=== PATIENT | female | born 1970 | race Two or more races ===

== ENCOUNTER → 2021-05-19 08:30 | Outpatient (BNVA) | payer OTHER, SELFPAY | PROVIDERS: PCP Emergency Medicine; Visit Provider Anesthesiology | DX: M17.0 Bilateral primary osteoarthritis of knee (principal); M06.9 Rheumatoid arthritis, unspecified; G89.4 Chronic pain syndrome; Z79.891 Long term (current) use of opiate analgesic | CPT/HCPCS: 99202 ==

== ENCOUNTER 2021-07-27 06:37 | Outpatient (REF) | payer OTHER, SELFPAY ==
--- NOTE | ~2021-07-27 | FL_ITS ---
EXAMINATION: XR FLUOROSCOPY WITH IMAGES CLINICAL INFORMATION: M17.0 - Bilateral primary osteoarthritis of knee. Pain. COMPARISON: None. TECHNIQUE: Fluoroscopy performed by Dr. Richar Carrillo. Fluoroscopy time: 0.3 minutes DAP: 5.32 Gycm2 Images: 3 FINDINGS: There is a needle adjacent to medial aspect distal femur mid depth. There is a second needle lateral side shorter depth, adjacent to superior medial patellofemoral joint. A third needle is seen adjacent to medial side proximal tibia mid depth. There is tricompartment osteoarthropathy with joint narrowing and osteophytes. There is spurring at quadriceps insertion patella and likely at origin patellar tendon. FL/FL guidance in treatment room IMPRESSION: Fluoroscopy for pain management procedures.
== END 2021-07-27 06:38 | disposition home or self-care (01) ==
LOC: HO.RADIR 06:37
PROVIDERS: Visit Provider Anesthesiology
DX: M06.9 Rheumatoid arthritis, unspecified (principal); G89.4 Chronic pain syndrome; M17.0 Bilateral primary osteoarthritis of knee; Z79.891 Long term (current) use of opiate analgesic
CPT/HCPCS: 64454

== ENCOUNTER → 2021-08-04 13:48 | Outpatient (BNVA) | payer OTHER, SELFPAY | PROVIDERS: PCP Emergency Medicine; Visit Provider Anesthesiology | DX: M06.9 Rheumatoid arthritis, unspecified (principal); M17.0 Bilateral primary osteoarthritis of knee; G89.4 Chronic pain syndrome; E66.01 Morbid (severe) obesity due to excess calories; Z79.891 Long term (current) use of opiate analgesic; Z68.44 Body mass index [BMI] 60.0-69.9, adult | CPT/HCPCS: 99212 ==

== ENCOUNTER 2021-10-29 12:51 | Emergency (ER) | payer OTHER, SELFPAY ==
--- NOTE | ~2021-10-29 | XR_ITS ---
EXAMINATION: XR CHEST CLINICAL INFORMATION: SOB. COMPARISON: None TECHNIQUE: Frontal view of the chest was obtained. FINDINGS: The lungs are well-expanded and clear of acute process. Heart size is borderline normal. Mild prominence of pulmonary vascularity seen but there is no congestion. No gross bony abnormality. XR/XR chest 1V IMPRESSION: No acute cardiopulmonary process seen.
--- NOTE | 2021-10-29 13:04 | ED_ITS ---
HPI - General Adult General Chief complaint: General Medical Stated complaint: has not slept in 7 days Time Seen by Provider: 10/29/21 13:03 Source: patient and EMS Mode of arrival: EMS History of Present Illness HPI narrative: 51-year-old female with past medical history of chronic pain, long-term opiate analgesia, osteoarthritis, rheumatoid arthritis, presenting to the ED from [facility] complaining insomnia x7 days and increased anxiety Reports nurse practitioner at facility has been slowly adjusting medications however is not working. Also reports acute on chronic LE edema since being at facility with mild SOB. Reports LE swelling has been worsening since being at [facility] due to decreased mobility. Is currently on Lasix, ambulates with walker to do ADLs. Denies CP, abdominal pain or nausea/vomiting Onset (ago): day(s) Related Data Home Medications Medication Instructions Recorded Confirmed acetaminophen 500 mg tablet 1,000 mg PO Q6H PRN 05/19/21 08/04/21 (Tylenol Extra Strength) celecoxib 100 mg capsule (Celebrex) 100 mg PO BID 05/19/21 08/04/21 duloxetine 30 mg capsule,delayed 30 mg PO DAILY 05/19/21 08/04/21 release (Cymbalta) gabapentin 100 mg capsule 100 mg PO TID 05/19/21 08/04/21 hydromorphone 2 mg tablet 2 mg PO Q6H 05/19/21 08/04/21 (Dilaudid) melatonin 3 mg capsule 3 mg PO BEDTIME PRN 05/19/21 08/04/21 ondansetron HCl 4 mg tablet 4 mg PO Q6H 05/19/21 08/04/21 (Zofran) trazodone 50 mg tablet 50 mg PO BEDTIME PRN 05/19/21 08/04/21 Previous Rx's Medication Instructions Recorded zolpidem 5 mg tablet (Ambien) 5 mg PO BEDTIME PRN #7 tab 10/29/21 Allergies Allergy/AdvReac Type Severity Reaction Status Date / Time acetaminophen [From Percocet] Allergy Itchy Verified 08/04/21 14:10 morphine Allergy itchy Verified 08/04/21 14:10 oxycodone [From Percocet] Allergy Itchy Verified 08/04/21 14:10 Review of Systems Review of Systems: Constitutional: No Fever, No Chills, + Fatigue, No Malaise ENT/Mouth: +No Ear Pain, No Nasal Congestion, No Hoarseness, No sore throat, No Rhinorrhea, No Swallowing Difficulty Eyes: No Eye Pain, No Swelling, No Redness, No Discharge Cardiovascular: No Chest Pain, + SOB, No Dyspnea on Exertion, No Orthopnea, + Edema, No Palpitations Respiratory: No Cough, No Dyspnea Gastrointestinal: No Nausea, No Vomiting, No Diarrhea, No Constipation, No Abdominal pain Genitourinary: No Dysuria, No Urinary Frequency, No Hematuria, No Flank Pain, No Urinary Flow Change Musculoskeletal: No joint pain, No Myalgias, No Joint Swelling Skin: No Skin Lesions, No rash Neuro: No Weakness, No Numbness, No Paresthesias, No Loss of Consciousness, No Dizziness, No Headache Psych: + Anxiety/Panic, No Depression, +insomnia Yes all other systems are reviewed and are negative [facility] Past Medical History Attestation statement: The following information was validated with the patient. Medical History Chronic pain syndrome care home (current) use of opiate analgesic Osteoarthritis of knees, bilateral Rheumatoid arthritis Social History Social History Advance Directives: No Advance Directives Information Provided: Yes Physical Exam Vital Signs: Vital Signs: Last Vital Signs Pulse 88 10/29/21 13:10 Resp 20 10/29/21 13:10 BP 133/61 10/29/21 13:10 Pulse Ox 100 10/29/21 13:10 BMI result Body Mass Index 74.9 Const: General: cooperative Nutritional Appearance: obese morbidly obese Orientation/consciousness: patient oriented x3 Limitations: no limitations HENMT: Head: Yes normal to inspection Ears: hearing grossly normal bilaterally General nose exam: Normal external nose present Face and sinus: Yes normal facial exam Eyes: General: appearance normal, both eyes and all related structures EOM: EOMs intact bilaterally Neck: Neck: Yes normal visual inspection and Yes no meningeal signs Resp: Effort & Inspection: normal respiratory effort Auscultation: clear to auscultation bilaterally, no rales, no rhonchi and no wheezes Cardio: Rate: regular rate Heart sounds: S1 normal heart sound present and S2 normal heart sound present GI: Inspection: Yes normal to inspection Palpation (GI): Soft to palpation, nontender, no guarding and not rigid Skin: Rashes: no rashes Wounds: no wounds Neuro: General: patient oriented x3 and no meningeal signs Extrem: Other: + bilateral LE pitting edema Course Course Course Narrative: XR chest 1V IMPRESSION: No acute cardiopulmonary process seen. -no leukocytosis. Labs otherwise unremarkable. BNP 21 > case discussed with Dr. Miranda, will initiate patient on trial of Ambien for insomnia. Patient reports the nurse practitioner at facility is in the process of increasing her Lasix x5 days Medical Decision Making MDM Narrative Medical decision making narrative: 51-year-old female with past medical history of chronic pain, long-term opiate analgesia, osteoarthritis, rheumatoid arthritis, presenting to the ED from [place] [facility] complaining insomnia x7 days and increased anxiety. Also reports acute on chronic LE edema since being at facility with mild SOB. On exam vital signs stable, NAD/nontoxic, lungs CTA, bilateral LE pitting edema. Concern for CHF vs dependent edema and insomnia. Patient currently on Trazodone & Melatonin for sleep aid Plan: Labs, CXR Medical Records Medical records reviewed: Yes I reviewed the patient's medical records. Lab Data Lab results reviewed: Yes I reviewed the patient's lab results. Result diagrams: 10/29/21 14:00 10/29/21 14:00 Labs: Lab Results 10/29/21 10/29/21 10/29/21 Range/Units 14:00 14:00 14:00 WBC 7.5 (4.8-10.8) X10*3/uL RBC 3.99 L (4.20-5.50) X10*6/uL Hgb 11.0 L (12.0-16.0) g/dl Hct 35.9 L (37.0-47.0) % MCV 90.0 (80.0-98.0) fL MCH 27.6 (27.0-33.0) pg MCHC 30.6 L (31.0-35.0) g/dl RDW 13.7 (11.0-16.0) % Plt Count 279 (160-400) X10*3/uL MPV 8.9 L (9.4-12.3) fL Immature Gran % (Auto) 0.8 H (0.0-0.4) % Neut % (Auto) 72.0 (45-73) % Lymph % (Auto) 19.9 L (20-40) % [place] % (Auto) 4.1 (2-11) % Eos % (Auto) 2.9 (0-4) % Baso % (Auto) 0.3 (0-2) % Lymph # (Auto) 1.5 (1.2-4.9) X10*3/uL [facility] # (Auto) 0.3 (0.1-1.2) X10*3/uL Eos # (Auto) 0.2 (0.0-0.4) X10*3/uL Baso # (Auto) 0.0 (0.0-0.2) X10*3/uL Abs Immat Gran (auto) 0.06 H (0.00-0.03) X10*3/uL Absolute Neuts (auto) 5.4 (2.0-8.3) x10*3/uL Absolute Nucleated RBC 0.000 (0.0-0.012) X10*3/uL Nucleated RBC % (auto) 0.0 (0.0-0.2) /100WBC Sodium 141 (135-145) mmol/L Potassium 4.2 (3.3-5.1) mmol/L Chloride 109 H (96-108) mmol/L Carbon Dioxide 25 (22-29) mmol/L Anion Gap 11 L (12-20) BUN 21 H (9-16) mg/dL Creatinine 0.69 (0.5-1.4) mg/dL Estim Creat Clear Calc 178.3 Estimated GFR > 60 Random Glucose 85 (60-115) mg/dL Calcium 8.7 (8.4-10.2) mg/dL Magnesium 2.0 (1.6-2.6) mg/dL Total Bilirubin 0.3 (0.0-1.0) mg/dL Direct Bilirubin < 0.2 (0.0-0.5) mg/dL AST 13 (5-31) U/L ALT 11 (0-31) U/L Alkaline Phosphatase 63 (39-117) U/L B-Natriuretic Peptide 21 (<100) pg/mL Total Protein 6.3 L (6.5-8.0) g/dL Albumin 3.5 (3.5-5.0) g/dL Discharge Plan Discharge Clinical Impression: Insomnia, Leg edema Patient Disposition: er [facility] Instructions: Edema (ED), Insomnia (ED) Additional Instructions: Your blood work was reassuring today in the ED Chest x-ray was unremarkable Please trial Ambien at night for insomnia Continue all other home prescribed medications and follow your nurse pra ctitioner's recommendations If symptoms persist or worsen, swelling increases or you develops shortness of breath return to the ED Prescriptions: New zolpidem [Ambien] 5 mg tablet 5 mg PO BEDTIME PRN (Reason: insomnia) Qty: 7 RF: 0 No Action gabapentin 100 mg capsule 100 mg PO TID RF: 0 hydromorphone [Dilaudid] 2 mg tablet 2 mg PO Q6H RF: 0 celecoxib [Celebrex] 100 mg capsule 100 mg PO BID RF: 0 acetaminophen [Tylenol Extra Strength] 500 mg tablet 1,000 mg PO Q6H PRNRF: 0 ondansetron HCl [Zofran] 4 mg tablet 4 mg PO Q6H RF: 0 trazodone 50 mg tablet 50 mg PO BEDTIME PRNRF: 0 melatonin 3 mg capsule 3 mg PO BEDTIME PRNRF: 0 duloxetine [Cymbalta] 30 mg capsule,delayed release(DR/EC) 30 mg PO DAILY RF: 0 Referrals: JAIMEE SANCHEZ [Primary Care Provider] - 2 days
[2021-10-29 13:10] VITALS: BP 133/61; BP 137/68; PULSE 75; PULSE 88; RESP 20; O2SAT 100; O2SAT 98; BMI 74.9
[2021-10-29 14:06] LABS: MANUAL DIFF FLAG NO
[2021-10-29 14:14] LABS: Basophils Percent Auto 0.3 % (0-2); Eosinophils Absolute Auto 0.2 X10*3/uL (0.0-0.4); Eosinophils Percent Auto 2.9 % (0-4); Hematocrit 35.9 % (37.0-47.0); Imm Gran Abs Auto 0.06 X10*3/uL (0.00-0.03); Imm Gran Pct Auto 0.8 % (0.0-0.4); Lymphocytes Absolute Auto 1.5 X10*3/uL (1.2-4.9); Lymphocytes Percent Auto 19.9 % (20-40); Mean Corpuscular HGB Conc 30.6 g/dl (31.0-35.0); Mean Corpuscular Hemoglobin 27.6 pg (27.0-33.0); Mean Platelet Volume 8.9 fL (9.4-12.3); Monocytes Absolute Auto 0.3 X10*3/uL (0.1-1.2); Monocytes Percent Auto 4.1 % (2-11); Neutrophils Absolute Auto 5.4 x10*3/uL (2.0-8.3); Platelet Count 279 X10*3/uL (160-400); Red Blood Count 3.99 X10*6/uL (4.20-5.50); Red Cell Distribution Width 13.7 % (11.0-16.0); White Blood Count 7.5 X10*3/uL (4.8-10.8)
[2021-10-29 14:27] LABS: B Type Natriuretic Peptide 21 pg/mL (<100)
[2021-10-29 14:34] LABS: Alanine Aminotransferase 11 U/L (0-31); Albumin Level 3.5 g/dL (3.5-5.0); Alkaline Phosphatase 63 U/L (39-117); Aspartate Amino Transferase 13 U/L (5-31); Bilirubin Direct < 0.2 mg/dL (0.0-0.5); Bilirubin Total 0.3 mg/dL (0.0-1.0); Blood Urea Nitrogen 21 mg/dL (9-16); Calcium 8.7 mg/dL (8.4-10.2); Creatinine Clr Calc Pharmacy 178.3; Estimated Glomerular Filt Rate > 60; Glucose Random 85 mg/dL (60-115); Total Protein 6.3 g/dL (6.5-8.0)
[2021-10-29 14:45] LABS: Anion Gap 11 (12-20); Carbon Dioxide 25 mmol/L (22-29); Chloride 109 mmol/L (96-108); Potassium 4.2 mmol/L (3.3-5.1); Sodium 141 mmol/L (135-145)
--- NOTE | 2021-10-29 16:13 | MHC.CARE ---
CARE Team received a phone call from short-term rehab that sent pt to ED reporting that pt has been having issues sleeping for the past few days. CARE Team spoke ED provider who confirmed CARE/BHN referral is not applicable for pt.
== END 2021-10-29 18:31 | disposition skilled nursing facility (03) ==
PROVIDERS: Physician Assistant; Emergency Provider Internal Medicine; PCP Emergency Medicine
DX: G47.00 Insomnia, unspecified (principal); R06.02 Shortness of breath; R60.0 Localized edema; Z79.899 Other long term (current) drug therapy
CPT/HCPCS: 36415; 71045; 80048; 80076; 83735; 83880; 85025; 99283

== ENCOUNTER → 2022-08-01 14:31 | Outpatient (BNVA) | payer MEDICAID, SELFPAY | PROVIDERS: PCP Emergency Medicine; Visit Provider Anesthesiology | DX: M06.9 Rheumatoid arthritis, unspecified (principal); G89.4 Chronic pain syndrome; M17.0 Bilateral primary osteoarthritis of knee; Z79.891 Long term (current) use of opiate analgesic | CPT/HCPCS: 99212 ==

== ENCOUNTER 2022-09-19 10:31 | Outpatient (REF) | payer MEDICARE, MEDICAID, SELFPAY ==
[2022-09-19 14:40] LABS: CT PCR NOT DETECTED (Not Detect.); NG PCR NOT DETECTED (Not Detect.)
[2022-09-20 12:35] LABS: BV Int Neg Control Negative (Negative)
[2022-09-20 12:36] LABS: BV Int Pos Control Positive (Positive)
[2022-09-22 12:52] LABS: HPV mRNA E6/E7 rflx Not Detected (Not Detected)
== END 2022-09-19 10:32 | disposition home or self-care (01) ==
LOC: HO.LNP 10:31
PROVIDERS: Visit Provider Advanced Practice Midwife
DX: Z01.419 Encounter for gynecological examination (general) (routine) without abnormal findings (principal)
CPT/HCPCS: 87480; 87491; 87510; 87591; 87624; 87660; 88142

== ENCOUNTER 2022-10-19 08:47 | Outpatient (REF) | payer MEDICARE, MEDICAID, SELFPAY ==
--- NOTE | ~2022-10-19 | MM_ITS ---
EXAMINATION: MM SCREENING DIGITAL BREAST TOMOSYNTHESIS, BILATERAL CLINICAL INFORMATION: Screening. Asymptomatic. Age 52. No prior breast imaging. No known family history breast cancer. The lifetime risk of breast cancer based on the Tyrer-Cuzick Model is 9%. COMPARISON: None (current study represents initial baseline exam). TECHNIQUE: Digital breast tomosynthesis is performed in both the craniocaudal and mediolateral oblique views along with computer-aided detection (CAD). Synthesized 2D images are generated from the tomosynthesis. Additional bilateral CC x2, additional bilateral MLO x2 and right cleavage views are provided. FINDINGS: The breasts are almost entirely fatty (ACR BI-RADS breast composition Category a). There are no significant masses, abnormal calcifications, or other abnormalities. Background stromal markings appearing normal. There is no architectural abnormality. The axilla and skin contours are unremarkable. MM/MM tomosynthesis screening BI IMPRESSION: No mammographic evidence of malignancy. ASSESSMENT: BI-RADS 1: Negative RECOMMENDATION: Routine annual mammography screening. This patient's information was entered into a reminder system with a target due date for their next mammogram.
== END 2022-10-19 08:48 | disposition home or self-care (01) ==
LOC: HO.MAMMO 08:47
PROVIDERS: PCP Emergency Medicine; Visit Provider Advanced Practice Midwife
DX: Z12.31 Encounter for screening mammogram for malignant neoplasm of breast (principal)
CPT/HCPCS: 77063; 77067

== ENCOUNTER → 2022-12-09 14:23 | Outpatient (BNVA) | payer MEDICARE, MEDICAID, SELFPAY | PROVIDERS: PCP Emergency Medicine; Visit Provider Urology | DX: N32.89 Other specified disorders of bladder (principal); G89.29 Other chronic pain; R10.2 Pelvic and perineal pain | CPT/HCPCS: 51798; 99202 ==

== ENCOUNTER 2023-01-03 06:18 | Outpatient (REF) | payer MEDICARE, MEDICAID, SELFPAY ==
--- NOTE | ~2023-01-03 | FL_ITS ---
EXAMINATION: XR FLUOROSCOPY WITH IMAGES CLINICAL INFORMATION: Primary osteoarthritis of the knee COMPARISON: 07/27/2021 TECHNIQUE: Fluoroscopy Supervised By: Dr. Richar Carrillo. Fluoroscopy Time: 0.3 minutes. Cumulative Dose: 4.97 mGy DAP: 1.35 Gycm2. Images: 2. FINDINGS: There is tricompartment degenerative change of the left knee. [place] are seen placed along medial and lateral aspects of the distal femur and along the medial aspect of the proximal tibia. FL/FL guidance in treatment room IMPRESSION: Intraoperative fluoroscopy for orthopedic procedure.
== END 2023-01-03 06:19 | disposition home or self-care (01) ==
LOC: CF 06:18
PROVIDERS: Visit Provider Anesthesiology
DX: M17.0 Bilateral primary osteoarthritis of knee (principal); M06.9 Rheumatoid arthritis, unspecified; G89.4 Chronic pain syndrome; Z79.891 Long term (current) use of opiate analgesic
CPT/HCPCS: 64454

== ENCOUNTER → 2023-01-05 10:04 | Outpatient (BNVA) | payer MEDICARE, MEDICAID, SELFPAY | PROVIDERS: PCP Emergency Medicine; Visit Provider Anesthesiology | DX: M17.0 Bilateral primary osteoarthritis of knee (principal); M06.9 Rheumatoid arthritis, unspecified; G89.4 Chronic pain syndrome; Z79.891 Long term (current) use of opiate analgesic | CPT/HCPCS: Q3014 ==

== ENCOUNTER 2023-01-26 10:43 | Day surgery (SDC) | payer MEDICARE, MEDICAID, SELFPAY ==
--- NOTE | ~2023-01-26 | FL_ITS ---
EXAMINATION: XR FLUOROSCOPY WITH IMAGES CLINICAL INFORMATION: Genicular nerve block, right COMPARISON: None. TECHNIQUE: Fluoroscopy Supervised By: Dr. Richar Carrillo. Fluoroscopy Time: 0.5 minutes. Cumulative Dose: 11.3 mGy. DAP: 3.10 Gycm2. Images: 1. FINDINGS: Single lateral view demonstrates 2 needles/electrodes overlying the distal femoral shaft, presumably medial and lateral sides, and at mid depth. There is a needle/electrode overlying the the proximal tibia and at mid depth. There are tricompartment osteoarthritic changes. FL/FL guidance in OR IMPRESSION: Fluoroscopy for pain management procedures.
[2023-01-26 11:55] VITALS: BP 127/54; PULSE 71; RESP 20; TEMP 36.6; O2SAT 97
[2023-01-26 11:59] VITALS: BMI 68.2
--- NOTE | 2023-01-26 12:46 | MHC.SHP ---
Pre-Procedural Eval Section A Date of Service: 01/26/23 The patient is an INPATIENT: No Changes since office visit: Yes Patient answered all questions The History & Physical has been completed within 30 days and I have reviewed it.: No Section B Chief Complaint: Pain in right knee,Bilateral primary osteoarthriti Details of Present Illness: as above Relevant Family History (Specify if Yes): No Relevant Social History: None Present Medications: None Medical History: No relevant PMH History of Previous Operations: No relevant previous surgery Allergies: Allergies Allergy/AdvReac Type Severity Reaction Status Date / Time acetaminophen [From Percocet] Allergy Itchy Verified 01/26/23 11:54 morphine Allergy itchy Verified 01/26/23 11:54 oxycodone [From Percocet] Allergy Itchy Verified 01/26/23 11:54 Review of Systems Sugical H&P ROS: Negative: Cardiovascular, Respiratory, Neurological, Psychiatric, Hem-Onc, Allergic/Immunologic, Gastrointestinal, Genitourinary, Integumentary, Endocrine and Eyes/Ears/Nose/Throat and Yes, Specify: Constitution (severe morbid obesity) and Musculoskeletal (severe knees osteoarthritis) Exam Surgical H&P Exam: Normal: HEENT, Normal: Heart, Normal: Lungs, Normal: Extremities, Normal: Abdomen, Normal: Skin and Normal: Neurological Plan Diagnosis/Plan: Unchanged I have reviewed the history and physical and performed a pertinent physical examination on my patient. No changes have occurred unless specified. Time Spent With Patient Time: Total time managing care of this patient today ____ minutes.
--- NOTE | 2023-01-26 13:45 | PM.OP ---
Brief Operative Note Date of Service: 01/26/23 Pre-op diagnosis: right knee pain Post-op diagnosis: same Procedure: right genicular nerves cooled RFA Surgeon: Richar Carrillo MD Anesthesia: local Was an [employer] used for this Procedure?: No Estimated blood loss (mL): 6 Condition: stable Disposition: PACU
--- NOTE | 2023-01-26 13:46 | W.PM.OPN ---
Operative Note Operative Note Date of Service: 01/26/23 Narrative: Right KNEE GENICULAR NERVES COOLED RFA. Informed consent was obtained , the patient was brought to the OR and positioned supine on ORT. Time-out was performed delineating correct site, side, the nature of the procedure, patient's allergy, preoperative antibiotic if needed. All operating room staff was participating in OR time-out procedure. C-arm was brought over the operating field and picture of the right knee was demonstrated on the screen. Anterolateral and anteromedial surfaces of the knee were prepped with chloroprep and draped with sterile utility towels.The point of interest were delineated for: superior lateral genicular nerve as the confluence of the metaphysis of the femur with corresponding diaphysis on the lateral silhouette of the femur distal bone,For superior medial genicular nerve (suprapatelar saphenous nerve) the point of interest was delineated as the confluence of the silhouette of the metaphysis of the femur with corresponding diaphysis on the medial silhouette on the femoral distal bone. For inferior medial genicular nerve ( Infrapatellar saphenous nerve) the point of interest was delineated as the confluence of metaphysis of the proximal tibia on the medial side with corresponding diaphysis of the same bone. The projections of the points of interest on anterior surface of the left knee was injected with small amount of mixture of lidocaine 1% and ropivacaine 2% 1-to 2 ml. After that 3 cooled radiofrequency canulas 75 mm long were driven to the point of interest in tunnel vision fashion. the effort was taken to hold the canullas imbedded into the skin to keep the canullas properly positioned against radiology anatomical landmarks When needles gently contacted the bones the position of the C-arm was switched to the lateral view, care was taken to superimpose the the femoral condyles of the knee one over the other. The position of the canulas were adjusted to assure that the tip of the canulas are located at the mid shaft of each of the above described bones. all the canullas needed to be kept imbedded into the skin to reack the landmarks. After that small amount of mixture of the same local anesthetic mixture as above and a trace amount of kenalog was injected into each canulla position. total amount of local anesthetics was 4.5 cc. The cooled RFA machine was connected to the canulas in usual fashion and energy applied with temperature of the canulas of 60 degrees C, for the 2 [id number] seconds. When energy application was completed the canullas were removed and sterile dressing was applied. Patient went to PACU where she recovered uneventfully.
[2023-01-26 13:50] VITALS: BP 135/75; PULSE 74; RESP 16; O2SAT 100
[2023-01-26 14:05] VITALS: BP 135/75; PULSE 82; RESP 18; TEMP 36.6; O2SAT 99
== END 2023-01-26 14:30 | disposition home or self-care (01) ==
PROVIDERS: PCP Family Medicine; Visit Provider Anesthesiology
PROC: (CPT 64624; principal; 2023-01-26 12:30)
DX: M25.561 Pain in right knee (principal); M17.0 Bilateral primary osteoarthritis of knee; G89.4 Chronic pain syndrome; M06.9 Rheumatoid arthritis, unspecified; Z79.84 Long term (current) use of oral hypoglycemic drugs; E66.01 Morbid (severe) obesity due to excess calories; Z79.891 Long term (current) use of opiate analgesic; Z88.8 Allergy status to other drugs, medicaments and biological substances
CPT/HCPCS: 64624; J3301

== ENCOUNTER → 2023-03-01 11:46 | Outpatient (BNVA) | payer MEDICARE, MEDICAID, SELFPAY | PROVIDERS: PCP Family Medicine; Visit Provider Anesthesiology | DX: G89.4 Chronic pain syndrome (principal); M17.0 Bilateral primary osteoarthritis of knee; M06.9 Rheumatoid arthritis, unspecified; Z79.891 Long term (current) use of opiate analgesic | CPT/HCPCS: Q3014 ==

== ENCOUNTER 2023-09-28 03:24 | Emergency (ER) | payer MEDICARE, MEDICAID, SELFPAY ==
--- NOTE | ~2023-09-28 | CT_ITS ---
EXAMINATION: CT ABDOMEN AND PELVIS WITH CONTRAST CLINICAL INFORMATION: Pain. COMPARISON: None available. TECHNIQUE: Multidetector volumetric images were obtained from the superior aspect of the liver through the pubic symphysis following administration 85 mL of Omnipaque 350 intravenous contrast. Sagittal and coronal reformatted images were obtained on the technologist's workstation. Oral contrast: No This CT examination was performed using dose optimization techniques as appropriate, variously including the following: *Automated exposure control *Adjustment of mA and/or kV according to patient size (this includes techniques or standardized protocols for targeted exams where dose is matched to indication/reason for exam; i.e. extremities or head) *Use of iterative reconstruction technique DLP: 1285 mGy-cm FINDINGS: LUNG BASES: There is scarring and/or atelectatic change at the lung bases. LIVER, GALLBLADDER, AND BILIARY TREE: The liver is normal in size, shape, and attenuation. No focal hepatic lesion or biliary ductal dilatation is present. There has been a prior cholecystectomy. PANCREAS: Unremarkable. SPLEEN: Unremarkable. ADRENAL GLANDS: Unremarkable. KIDNEYS AND URETERS: The kidneys are normal in size, shape, and attenuation. No hydronephrosis, hydroureter, or calculi seen. No perinephric stranding. BLADDER: Unremarkable. GASTROINTESTINAL TRACT: The small and large bowel are unremarkable. The appendix is is not visualized. There is a small area of infiltrative change along the lateral distal left colon. There is no associated diverticula. ABDOMINAL WALL: A hernia repair mesh is noted. A gastric band is noted. LYMPH NODES: Normal. VASCULAR: Unremarkable. PELVIC VISCERA: Unremarkable. OSSEOUS STRUCTURES: Unremarkable. CT/CT abdomen pelvis w IV con IMPRESSION: Mild infiltrative change along the distal left colon of uncertain significance. This may be seen with epiploic appendage enteritis. Prior hernia repair mesh and gastric band in place. No other significant abnormality seen. Fleischner guidelines were followed.
[2023-09-28 03:33] VITALS: PULSE 92; O2SAT 96; BMI 73.3
--- NOTE | 2023-09-28 03:37 | ED_ITS ---
HPI - Abdominal Pain General Chief Complaint: Abdominal Pain Stated Complaint: Abdominal Pain, nausea vomitting Time Seen by Provider: 09/28/23 03:37 Source: patient Mode of arrival: EMS Limitations: no limitations History of Present Illness HPI narrative: Patient from half-way for abdominal pain going to lower abdominal started earlier today no nausea no vomiting no urine complaints no fever no chills patient is status post cholecystectomy Related Data Home Medications Medication Instructions Recorded Confirmed acetaminophen 500 mg tablet 1,000 mg PO Q6H PRN 05/19/21 01/05/23 (Tylenol Extra Strength) celecoxib 100 mg capsule (Celebrex) 100 mg PO BID 05/19/21 01/26/23 duloxetine 30 mg capsule,delayed 30 mg PO DAILY 05/19/21 01/05/23 release (Cymbalta) gabapentin 100 mg capsule 100 mg PO TID 05/19/21 01/05/23 hydromorphone 2 mg tablet 2 mg PO Q6H 05/19/21 01/05/23 (Dilaudid) melatonin 3 mg capsule 3 mg PO BEDTIME PRN 05/19/21 01/05/23 ondansetron HCl 4 mg tablet 4 mg PO Q6H 05/19/21 01/05/23 (Zofran) trazodone 50 mg tablet 50 mg PO BEDTIME PRN 05/19/21 01/05/23 albuterol sulfate 90 mcg/actuation 0 mcg inhalation 09/19/22 01/05/23 aerosol inhaler buspirone 5 mg tablet 5 mg PO BID 09/19/22 01/05/23 furosemide 20 mg tablet 20 mg PO DAILY 09/19/22 01/05/23 topiramate 100 mg tablet 100 mg PO DAILY 09/19/22 01/05/23 Previous Rx's Medication Instructions Recorded zolpidem 5 mg tablet (Ambien) 5 mg PO BEDTIME PRN insomnia #7 10/29/21 tabs miconazole nitrate 2 % topical 1 appl topical BID #85 grams 09/19/22 powder cefuroxime axetil 500 mg tablet 500 mg PO BID 7 days #14 tabs 09/28/23 Allergies Allergy/AdvReac Type Severity Reaction Status Date / Time acetaminophen [From Percocet] Allergy Itchy Verified 09/28/23 03:40 morphine Allergy itchy Verified 09/28/23 03:40 oxycodone [From Percocet] Allergy Itchy Verified 09/28/23 03:40 Review of Systems Review of Systems Yes all other systems are reviewed and are negative [facility] Past Medical History Medical History Insomnia Asthma [facility] (current) use of opiate analgesic Osteoarthritis of knees, bilateral Chronic pain syndrome Rheumatoid arthritis Surgical History History of hernia repair H/O partial cystectomy History of cholecystectomy LAP-BAND surgery status Hx of section Social History Social History Alcohol intake: current Alcohol intake frequency: holidays/special occasions only Patient Tobacco Use Status: Current someday Tobacco user Tobacco use type: Cigarette Smoked in Last 30 Days: No Advance Directives: No Advance Directives Information Provided: Yes Physical Exam ED Vital Signs: Vital Signs - 24 hr 09/28/23 03:39 09/28/23 05:07 Temperature 98.0 F 98.5 F Pulse Rate 90 100 Respiratory Rate 17 19 Blood Pressure 140/94 H 131/56 L Pulse Oximetry 99 97 Oxygen Delivery Method Room Air Room Air BMI result Body Mass Index 73.3 Appearance: Alert. Oriented X3. No acute distress. Obese Eyes: No pallor or icterus ENT: Pharynx normal. Oral Mucosa moist Neck: Normal inspection. Neck supple. CVS: Normal heart rate and rhythm. Pulses normal. Respiratory: No respiratory distress. Equal air entry bilateral, no wheezing/rales/rhonchi Abdomen: Soft deep tenderness lower buttock tenderness no rebound or guarding Bowel sounds are present, no mass palpable, no CVA tenderness Skin: Skin warm and dry. Normal skin color. Normal skin turgor. Extremities: No lower extremity edema. No calf tenderness Neuro: Oriented X 3. Medical Decision Making Medical Decision Making [facility] Narrative: Patient w/u showed UTI uncomplicated treated with IV Rocephin Differential Diagnosis Differential Diagnoses: The differential diagnosis associated with the presentation includes Diverticulitis/appendicitis/UTI/kidney is Lab Data [facility] Lab Attestation statement: I reviewed the patient's lab results. 09/28/23 03:48 09/28/23 03:48 Labs: Lab Results 09/28/23 09/28/23 Range/Units 03:48 06:33 WBC 17.0 H (4.8-10.8) X10*3/uL RBC 4.73 (4.20-5.50) X10*6/uL Hgb 12.3 (12.0-16.0) g/dl Hct 41.7 (37.0-47.0) % MCV 88.2 (80.0-98.0) fL MCH 26.0 L (27.0-33.0) pg MCHC 29.5 L (31.0-35.0) g/dl RDW 14.0 (11.0-16.0) % Plt Count 388 D (160-400) X10*3/uL MPV 8.6 L (9.4-12.3) fL Immature Gran % (Auto) 0.5 H (0.0-0.4) % Neut % (Auto) 90.0 H (45-73) % Lymph % (Auto) 5.8 L (20-40) % [place] % (Auto) 3.1 (2-11) % Eos % (Auto) 0.5 (0-4) % Baso % (Auto) 0.1 (0-2) % Lymph # (Auto) 1.0 L (1.2-4.9) X10*3/uL [place] # (Auto) 0.5 (0.1-1.2) X10*3/uL Eos # (Auto) 0.1 (0.0-0.4) X10*3/uL Baso # (Auto) 0.0 (0.0-0.2) X10*3/uL Abs Immat Gran (auto) 0.08 H (0.00-0.03) X10*3/uL Absolute Neuts (auto) 15.3 H (2.0-8.3) x10*3/uL Absolute Nucleated RBC 0.000 (0.0-0.012) X10*3/uL Nucleated RBC % (auto) 0.0 (0.0-0.2) /100WBC Sodium 142 (135-145) mmol/L Potassium 3.8 (3.3-5.1) mmol/L Chloride 109 H (96-108) mmol/L Carbon Dioxide 25 (22-29) mmol/L Anion Gap 12 (12-20) BUN 26 H (9-16) mg/dL Creatinine 0.77 (0.5-1.4) mg/dL Estim Creat Clear Calc 152.6 Estimated GFR > 60 Random Glucose 122 H (60-115) mg/dL Calcium 8.7 (8.4-10.2) mg/dL Total Bilirubin 0.4 (0.0-1.0) mg/dL AST 15 (5-31) U/L ALT 11 (0-31) U/L Alkaline Phosphatase 81 (39-117) U/L Total Protein 7.8 (6.5-8.0) g/dL Albumin 3.7 (3.5-5.0) g/dL Lipase 12 (8-78) U/L Urine Color Yellow Urine Appearance Cloudy Urine pH 8.0 (5.0-9.0) Ur Specific [place] >= 1.030 H (1.005-1.025) Urine Protein 100 (2+) H (Neg-Trace) mg/dL Urine Glucose (UA) Negative (Negative) mg/dL Urine Ketones Negative (Negative) mg/dL Urine Blood Large (3+) H (Negative) Urine Nitrite Positive H (Negative) Ur Leukocyte Esterase Small (1+) H (Negative) Urine RBC >20 H (0-2) /HPF Urine WBC 21-50 H (0-5) /HPF Ur Squamous Epith Cells 3-5 (0-2) /HPF Urine Bacteria 4+ (None Seen) Hyaline Casts 0-2 (0-2) /LPF Independent Interpretation I performed an independent interpretation of an: CT Scan Radiology Impression Discussion of test interpretation with radiology: I have reviewed the radiologist's reading. Medications Administered Generic Name Dose Route Start Last Admin Trade Name Freq PRN Reason Stop Dose Admin Ceftriaxone Sodium 1 gm/ 50 mls @ 100 mls/hr 09/28/23 07:29 09/28/23 07:43 Sodium Chloride IV 09/28/23 07:58 100 mls/hr ONCE ONE Administration Discontinued Medications Generic Name Dose Route Start Last Admin Trade Name Freq PRN Reason Stop Dose Admin Hydromorphone HCl 2 mg 09/28/23 04:17 09/28/23 04:26 Hydromorphone Hcl 2 Mg/Ml Vial IVPUSH 09/28/23 04:18 2 mg ONCE ONE Administration Protocol Iohexol 100 ml 09/28/23 05:05 09/28/23 05:06 Iohexol 350 Mg/Ml 100 Ml Infus..Btl IV 09/28/23 05:06 100 ml ONCE ONE Administration Ondansetron HCl 4 mg 09/28/23 04:16 09/28/23 04:26 Ondansetron Hcl 4 Mg/2 Ml Vial IVPUSH 09/28/23 04:17 4 mg ONCE ONE Administration Discharge Plan Discharge Clinical Impression: UTI (urinary tract infection) Patient Disposition: Home, Self-Care Instructions: Urinary Tract Infection in Women (ED) Additional Instructions: Drink plenty of fluid Antibiotic as prescribed Follow with PCP Prescriptions: New cefuroxime axetil 500 mg tablet 500 mg PO BID 7 Days Qty: 14 0RF No Action zolpidem [Ambien] 5 mg tablet 5 mg PO BEDTIME PRN (Reason: insomnia) Qty: 7 0RF gabapentin 100 mg capsule 100 mg PO TID hydromorphone [Dilaudid] 2 mg tablet 2 mg PO Q6H celecoxib [Celebrex] 100 mg capsule 100 mg PO BID acetaminophen [Tylenol Extra Strength] 500 mg tablet 1,000 mg PO Q6H PRN ondansetron HCl [Zofran] 4 mg tablet 4 mg PO Q6H trazodone 50 mg tablet 50 mg PO BEDTIME PRN melatonin 3 mg capsule 3 mg PO BEDTIME PRN duloxetine [Cymbalta] 30 mg capsule,delayed release(DR/EC) 30 mg PO DAILY buspirone 5 mg tablet 5 mg PO BID topiramate 100 mg tablet 100 mg PO DAILY albuterol sulfate 90 mcg/actuation HFA aerosol inhaler 0 mcg inhalation furosemide 20 mg tablet 20 mg PO DAILY miconazole nitrate 2 % powder 1 appl topical BID Qty: 85 6RF
[2023-09-28 03:39] VITALS: BP 140/94; PULSE 90; RESP 17; TEMP 36.7; O2SAT 99
[2023-09-28 03:54] LABS: MANUAL DIFF FLAG NO
[2023-09-28 03:58] LABS: Basophils Percent Auto 0.1 % (0-2); Eosinophils Absolute Auto 0.1 X10*3/uL (0.0-0.4); Eosinophils Percent Auto 0.5 % (0-4); Hematocrit 41.7 % (37.0-47.0); Hemoglobin 12.3 g/dl (12.0-16.0); Imm Gran Abs Auto 0.08 X10*3/uL (0.00-0.03); Imm Gran Pct Auto 0.5 % (0.0-0.4); Lymphocytes Percent Auto 5.8 % (20-40); Mean Corpuscular HGB Conc 29.5 g/dl (31.0-35.0); Mean Corpuscular Volume 88.2 fL (80.0-98.0); Mean Platelet Volume 8.6 fL (9.4-12.3); Monocytes Absolute Auto 0.5 X10*3/uL (0.1-1.2); Monocytes Percent Auto 3.1 % (2-11); Neutrophils Absolute Auto 15.3 x10*3/uL (2.0-8.3); Platelet Count 388 X10*3/uL (160-400); Red Blood Count 4.73 X10*6/uL (4.20-5.50)
[2023-09-28 04:11] LABS: Alanine Aminotransferase 11 U/L (0-31); Albumin Level 3.7 g/dL (3.5-5.0); Alkaline Phosphatase 81 U/L (39-117); Anion Gap 12 (12-20); Aspartate Amino Transferase 15 U/L (5-31); Bilirubin Total 0.4 mg/dL (0.0-1.0); Blood Urea Nitrogen 26 mg/dL (9-16); Calcium 8.7 mg/dL (8.4-10.2); Carbon Dioxide 25 mmol/L (22-29); Chloride 109 mmol/L (96-108); Creatinine Clr Calc Pharmacy 152.6; Estimated Glomerular Filt Rate > 60; Glucose Random 122 mg/dL (60-115); Lipase 12 U/L (8-78); Potassium 3.8 mmol/L (3.3-5.1); Sodium 142 mmol/L (135-145); Total Protein 7.8 g/dL (6.5-8.0)
[2023-09-28] MEDS: HYDROmorphone HCl 2 MG/ML VIAL IVPUSH (04:26)
[2023-09-28] MEDS: ondansetron HCL 4 MG/2 ML VIAL IVPUSH (04:26)
[2023-09-28] MEDS: iohexoL 350 MG/ML 100 ML INFUS..BTL IV (05:06)
[2023-09-28 05:07] VITALS: BP 131/56; PULSE 100; RESP 19; TEMP 36.9; O2SAT 97
[2023-09-28 06:44] LABS: Appearance Urine Cloudy; Color Urine Yellow; Glucose Urine UA Negative (Negative); Leukocyte Esterase Urine Small (1+) (Negative); Nitrite Urine Positive (Negative); Specific Gravity - Urine >= 1.030 (1.005-1.025); UMIC TRIGGER UACC YES; Urine Blood Large (3+) (Negative); Urine Ketones Negative (Negative); Urine Protein 100 (2+) mg/dL (Neg-Trace)
[2023-09-28 06:46] LABS: Bacteria Urine 4+ (None Seen); Hyaline Casts Urine 0-2 /LPF (0-2); RBC Urine >20 /HPF (0-2); UACC Culture Trigger YES; WBC Urine 21-50 /HPF (0-5)
[2023-09-28] MEDS: cefTRIAXone sodium 1 GM in 0.9 % Sodium Chloride 50 ML IV (07:43)
[2023-09-28] MEDS: Acetaminophen 325 MG TABLET 650 MG PO (08:06)
[2023-09-28 10:30] VITALS: BP 153/73; PULSE 106; RESP 16; TEMP 36.8; O2SAT 99
--- NOTE | 2023-09-28 10:56 | PC.NURSE ---
report to inocencio at [facility]. awaiting transport.
== END 2023-09-28 12:11 | disposition home or self-care (01) ==
PROVIDERS: Emergency Provider Internal Medicine; PCP Family Medicine
DX: N39.0 Urinary tract infection, site not specified (principal); R10.30 Lower abdominal pain, unspecified; G89.4 Chronic pain syndrome; Z79.891 Long term (current) use of opiate analgesic; Z90.49 Acquired absence of other specified parts of digestive tract; F17.210 Nicotine dependence, cigarettes, uncomplicated
CPT/HCPCS: 36415; 74177; 80053; 81001; 83690; 85025; 87086; 96365; 96375; 99284; 99285; J0696; J1170; J2405; Q9967

== ENCOUNTER 2024-08-14 09:16 | Outpatient (AMB) | payer MEDICARE, MEDICAID, SELFPAY ==
--- NOTE | 2024-08-14 09:18 | A.OFFVIS_ITS ---
Vital Signs 08/14/24 09:24 Height 5 ft 5 in Weight 450 lb BMI 74.9 BP 138/88 Blood Pressure Location Lt brachial Position Sitting Respiration 18 Pulse 98 Pulse Source Pulse Oximeter Pulse Oximetry (%) 96 Oxygen Delivery Method Room Air Intake Visit Reasons: knee pain , Shoulder pain Intake Note: Rahel comes in to discuss shoulder pain. She was accompanied by?AXEL Robles. Reports pain 9/10 Allergies morphine Allergy (Verified 08/14/24 09:28) itchy oxycodone [From Percocet] Allergy (Verified 08/14/24 09:28) Itchy HPI Comments Details: Ms. Fish is back in my office after 1 year and a half of absence. She reports today severe pain in the right shoulder and inability to lift her arm above the shoulder line. She is suffering from morbid obesity and related to this condition generalized osteoarthritis. In the past she received r adiofrequency ablation on the genicular nerves on the left with moderate results. She now reports that the pain in this knee is coming back as well. She had severe morbid obesity for most of her life. She had gastric banding which resulted in no improvement. My impression that she might need something more radical to help her otherwise her condition will go only worse. As her left knee diagnostic genicular nerve block which was performed on 01/03/2023 she reports excellent pain relief almost 100% since the injection up until now 4 days later.? Possibility exist to start treating her knee pain with the radiofrequency ablation on the left as well after we completed right procedure. ?Prior:? Rahel is severely morbidly obese 52 years old female suffering from bilateral knee pain.? Last time I saw this patient 1 year ago in July of 2021.? She received at that time diagnostic genicular nerve block on the right knee and she reported good pain relief from the diagnostic genicular nerve block.? She did not consider to visit us for the follow-up for the whole year.? She reports today that her left knee is starting to hurt.? 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 Osteoarthritis of knees, bilateral Chronic pain syndrome Rheumatoid arthritis Surgical History History of hernia repair H/O partial cystectomy History of cholecystectomy LAP-BAND surgery status Hx of section Social History Alcohol intake: current Alcohol intake frequency: holidays/special occasions only Patient Tobacco Use Status: Current someday Tobacco user Tobacco use type: Cigarette Female Reproductive History Menstrual Age of Menarche: 11 Review of Systems Const Denies chills, Denies fever(s) and Reports weight gain ENT Reports Normal hearing present Resp Denies chest congestion, Denies cough and Denies hemoptysis GI Denies abdominal pain, Denies belching, Denies melena and Denies bloating Musc Reports as per HPI Neuro Reports Normal hearing present, Denies Abnormal speech present, Denies confusion, Denies lack of coordination and Denies Sensory deficit (Neuro) Psych Denies no additional complaints, Denies confusion, Denies depression and Denies irritability Physical Exam Vital Signs: Last Vital Signs Pulse 98 08/14/24 09:24 Resp 18 08/14/24 09:24 BP 138/88 08/14/24 09:24 Pulse Ox 96 08/14/24 09:24 Oxygen Delivery Method Room Air 08/14/24 09:24 BMI result Body Mass Index 74.9 Const General: No confusion Nutritional Appearance: obese morbidly obese Orientation/consciousness: No confusion Limitations: no limitations HEENT Head: Yes normal to inspection Ears: hearing grossly normal bilaterally General nose exam: Normal external nose present Face and sinus: Yes normal facial exam Eyes General: appearance normal, both eyes and all related structures EOM: EOMs intact bilaterally Neck Neck: Yes normal visual inspection and Yes no meningeal signs Resp Effort & Inspection: normal respiratory effort Auscultation: clear to auscultation bilaterally, no rales, no rhonchi and no wheezes Cardio Rate: regular rate Heart sounds: S1 normal heart sound present and S2 normal heart sound present GI Inspection: Yes normal to inspection Palpation (GI): Soft to palpation, nontender, no guarding and not rigid Skin Rashes: no rashes Wounds: no wounds Neuro General: no meningeal signs and No confusion Cranial nerves: Yes Normal hearing present Speech: No Abnormal speech present Sensory Exam: No Sensory deficit (Neuro) Extrem Other: + bilateral LE pitting edema Assessment & Plan Assessment & Plan (1) Shoulder pain: Code(s): M25.519 - Pain in unspecified shoulder (2) Osteoarthritis of right shoulder: Code(s): M19.011 - Primary osteoarthritis, right shoulder Category: Medical (3) Obesity, morbid, BMI 50 or higher: Code(s): E66.01 - Morbid (severe) obesity due to excess calories Category: Medical Plan I will schedule her for x-ray of the right shoulder. I will also refer her to bariatric surgery evaluation she is severely morbidly obese and reports increase of the body mass. She states that this is retained fluid which in fact maybe so however not to the extent of 450 lb. I will see her in 1 month after x-ray of the shoulder is red. Possibility exists to treat his shoulder pain with steroid injections however it will be a risk of diabetes and more water retention with administration of the steroids into the shoulder. Orders: Orders XR shoulder RT min 2V Today M19.011 - Primary osteoarthritis, right shoulder Referrals Bariatric Surgery Referral E66.01 - Morbid (severe) obesity due to excess calories Coding Level of Care Code Est Pt Level 3 (35280) Diagnoses Shoulder pain M25.519 Osteoarthritis of right shoulder M19.011 Obesity, morbid, BMI 50 or higher E66.01 Chronic Fatigue and Pain Current symptoms: Denies fever(s) or cough
[2024-08-14 09:24] VITALS: BP 138/88; PULSE 98; RESP 18; O2SAT 96; BMI 74.9
== END 2024-08-14 09:33 | disposition home or self-care (01) ==
PROVIDERS: PCP Family Medicine; Visit Provider Anesthesiology
DX: M25.519 Pain in unspecified shoulder (principal); M19.011 Primary osteoarthritis, right shoulder; E66.01 Morbid (severe) obesity due to excess calories
CPT/HCPCS: 99213

== ENCOUNTER → 2024-08-14 09:16 | Outpatient (BNVA) | payer MEDICARE, MEDICAID, SELFPAY | PROVIDERS: PCP Family Medicine; Visit Provider Anesthesiology | DX: M19.011 Primary osteoarthritis, right shoulder (principal); E66.01 Morbid (severe) obesity due to excess calories; Z68.45 Body mass index [BMI] 70 or greater, adult; Z79.891 Long term (current) use of opiate analgesic | CPT/HCPCS: 99212 ==

== ENCOUNTER → 2024-08-26 09:00 | Outpatient (BNVA) | payer MEDICARE, MEDICAID, SELFPAY | PROVIDERS: PCP Family Medicine; Visit Provider Physician Assistant Surgical ==

== ENCOUNTER → 2024-08-28 08:18 | Outpatient (BNVA) | payer MEDICARE, MEDICAID, SELFPAY | PROVIDERS: PCP Family Medicine; Visit Provider Surgery ==

== ENCOUNTER 2024-09-09 09:32 | Outpatient (AMB) | payer MEDICARE, MEDICAID, SELFPAY ==
--- NOTE | 2024-09-09 09:33 | MHC.OFFVIS ---
Vital Signs 09/09/24 09:44 Height 5 ft 3 in Weight 437 lb BMI 77.4 BP 125/82 Blood Pressure Location Lt brachial Position Sitting Respiration 18 Pulse 83 Pulse Source Pulse Oximeter Pulse Oximetry (%) 98 Oxygen Delivery Method Room Air Intake Visit Reasons: 1 month F/U Intake Note: Patient comes in for 1 month follow up. Reports shoulder pain 5 and back pain 8. Allergies morphine Allergy (Verified 09/09/24 09:43) itchy oxycodone [From Percocet] Allergy (Verified 09/09/24 09:43) Itchy HPI Comments Details: Ms. Fish is back in my office with the same complaints of the last time. Last time she came to my office after 1 year and a half of absence. She she reported severe pain in the right shoulder and inability to lift her arm above the shoulder line. She is suffering from morbid obesity and related to this condition generalized osteoarthritis. In the past she received radiofrequency ablation on the genicular nerves on the left with moderate results. She now reports that the pain in this knee is coming back as well. Last time I sent her for the x-ray of the shoulder to perform intra-articular injection. Unfortunately the patient either not go for the x-ray or she had it done in facility results of which are not available for me. Her order for x-ray in [facility] is still in good standing. I told her to go across the street to the hospital and have it done. I will see her in the yet another 4 weeks. She had severe morbid obesity for most of her life. She had gastric banding which resulted in no improvement. My impression that she might need something more radical to help her otherwise her condition will go only worse. As her left knee diagnostic genicular nerve block which was performed on 01/03/2023 she reports excellent pain relief almost 100% since the injection up until now 4 days later.? Possibility exist to start treating her knee pain with the radiofrequency ablation on the left as well after we completed right procedure. ?Prior:? Rahel is severely morbidly obese 52 years old female suffering from bilateral knee pain.? Last time I saw this patient 1 year ago in July of 2021.? She received at that time diagnostic genicular nerve block on the right knee and she reported good pain relief from the diagnostic genicular nerve block.? She did not consider to visit us for the follow-up for the whole year.? She reports today that her left knee is starting to hurt.? She requests me to perform diagnostic left-sided genicular nerve block she hopes that her mobility will be greatly improved after the procedure [facility] Medical History Insomnia Asthma [facility] (current) use of opiate analgesic Osteoarthritis of knees, bilateral Chronic pain syndrome Rheumatoid arthritis Surgical History History of hernia repair H/O partial cystectomy History of cholecystectomy LAP-BAND surgery status Hx of section Family History (Updated 08/26/24 @ 09:57 by Nani Hayes [facility]) Family/Other No problems noted. Social History (Updated 08/26/24 @ 09:58 by Nani Hayes CMA) Alcohol intake: former Patient Tobacco Use Status: Former Tobacco user Tobacco use type: Cigarette Female Reproductive History Menstrual Age of Menarche: 11 Review of Systems Const All systems reviewed & are unremarkable except as noted in HPI and below ENT Reports Normal hearing present Neuro Reports Normal hearing present, Denies Abnormal speech present, Denies confusion and Denies Sensory deficit (Neuro) Psych Denies confusion Physical Exam Vital Signs: Last Vital Signs Pulse 83 09/09/24 09:44 Resp 18 09/09/24 09:44 BP 125/82 09/09/24 09:44 Pulse Ox 98 09/09/24 09:44 Oxygen Delivery Method Room Air 09/09/24 09:44 BMI result Body Mass Index 77.4 Const General: No confusion Nutritional Appearance: obese morbidly obese Orientation/consciousness: No confusion Limitations: no limitations HEENT Head: Yes normal to inspection Ears: hearing grossly normal bilaterally General nose exam: Normal external nose present Face and sinus: Yes normal facial exam Eyes General: appearance normal, both eyes and all related structures EOM: EOMs intact bilaterally Neck Neck: Yes normal visual inspection and Yes no meningeal signs Resp Effort & Inspection: normal respiratory effort Auscultation: clear to auscultation bilaterally, no rales, no rhonchi and no wheezes Cardio Rate: regular rate Heart sounds: S1 normal heart sound present and S2 normal heart sound present GI Inspection: Yes normal to inspection Palpation (GI): Soft to palpation, nontender, no guarding and not rigid Skin Rashes: no rashes Wounds: no wounds Neuro General: no meningeal signs and No confusion Cranial nerves: Yes Normal hearing present Speech: No Abnormal speech present Sensory Exam: No Sensory deficit (Neuro) Extrem Other: + bilateral LE pitting edema Assessment & Plan Assessment & Plan (1) Shoulder pain: Code(s): M25.519 - Pain in unspecified shoulder (2) Osteoarthritis of right shoulder: Code(s): M19.011 - Primary osteoarthritis, right shoulder Category: Medical (3) Obesity, morbid, BMI 50 or higher: Code(s): E66.01 - Morbid (severe) obesity due to excess calories Category: Medical Plan I scheduled her for x-ray of the right shoulder. In my opinion she did not go for the x-ray. The standing order is still available. She will go across the street and we will have x-ray done. I made a referral for her to go for to bariatric surgery evaluation she is severely morbidly obese and reports increase of the body mass. She states that this is retained fluid which in fact maybe so however not to the extent of 450 lb. She was scheduled to go for this appointment on 08/26/2024 however she never when there. I will see her in 1 month after x-ray of the shoulder is read. Possibility exists to treat his shoulder pain with steroid injections however it will be a risk of diabetes and more water retention with administration of the steroids into the shoulder. Next time she is here I will be asking her about her appointment with the bariatric surgery program. Coding Level of Care Code Est Pt Level 3 (93488) Diagnoses Shoulder pain M25.519 Osteoarthritis of right shoulder M19.011 Obesity, morbid, BMI 50 or higher E66.01
[2024-09-09 09:44] VITALS: BP 125/82; PULSE 83; RESP 18; O2SAT 98; BMI 77.4
== END 2024-09-09 09:50 | disposition home or self-care (01) ==
PROVIDERS: PCP Family Medicine; Visit Provider Anesthesiology
DX: M25.519 Pain in unspecified shoulder (principal); M19.011 Primary osteoarthritis, right shoulder; E66.01 Morbid (severe) obesity due to excess calories
CPT/HCPCS: 99213

== ENCOUNTER 2024-09-09 09:32 | Outpatient (REF) | payer MEDICARE, MEDICAID, SELFPAY ==
--- NOTE | ~2024-09-09 | XR_ITS ---
EXAMINATION: XR SHOULDER, RIGHT CLINICAL INFORMATION: Primary osteoarthritis COMPARISON: None available. TECHNIQUE: AP external rotation, Grashey, scapular Y, and axillary views of the right shoulder. FINDINGS: Glenohumeral joint: Mild osteoarthritis manifested by small marginal osteophytes. Acromioclavicular joint normal. Surrounding bone and soft tissues unremarkable. XR/XR shoulder RT min 2V IMPRESSION: Mild osteoarthritis of the glenohumeral joint. Electronically signed by: Anthony Aguila MD 09/14/2024 08:34 AM EDT RP
== END 2024-09-09 09:33 | disposition home or self-care (01) ==
LOC: HO.XRAY 09:32
PROVIDERS: PCP Family Medicine; Visit Provider Anesthesiology
DX: M19.011 Primary osteoarthritis, right shoulder (principal); E66.01 Morbid (severe) obesity due to excess calories; Z68.45 Body mass index [BMI] 70 or greater, adult
CPT/HCPCS: 73030; 99212

== ENCOUNTER 2024-09-18 09:37 | Outpatient (AMB) | payer MEDICARE, MEDICAID, SELFPAY ==
--- NOTE | 2024-09-18 09:39 | MHC.OFFVIS ---
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 She is a patient of . She seen for following urologic conditions - chronic pelvic pain associated with bladder adhesions Initially seen 12/09/2022 Did not follow-up Re presentation for incontinence with history of UTI and urinary retention - on Estrace cream Takes oxybutynin p.r.n. Convert oxybutynin to 5 mg daily Reports mild stress incontinence Suggest Kegel exercises - morbidly obese Baseline in long-term facility [facility] for antisocial behavior disorder Chronic pelvic pain associated with bladder adhesions Underwent partial bladder resection 1990 Secondary to section with sepsis Since procedure has had intermittent pelvic and bladder pain Associated with urinary dribbling when that occurs Multiple episodes since June last year No prior imaging [facility] Medical History Insomnia Asthma care home (current) use of opiate analgesic Osteoarthritis of knees, bilateral Chronic pain syndrome Rheumatoid arthritis Surgical History History of hernia repair H/O partial cystectomy History of cholecystectomy LAP-BAND surgery status Hx of section Family History (Updated 08/26/24 @ 09:57 by Nani Hayes CMA) Family/Other No problems noted. Social History (Updated 08/26/24 @ 09:58 by Nani Hayes CMA) Alcohol intake: former Patient Tobacco Use Status: Former Tobacco user Tobacco use type: Cigarette Female Reproductive History Menstrual Age of Menarche: 11 Review of Systems Const Denies chills and Denies fever(s) Card Reports no additional complaints and Denies syncope Resp Denies cough GI Denies abdominal pain and Denies heartburn Reports as per HPI and Denies change in libido Neuro Denies syncope Psych Denies change in libido Endo Denies change in libido Physical Exam Const General: cooperative, healthy appearing, comfortable and no acute distress Orientation/consciousness: patient oriented x3 HEENT Face and sinus: Yes normal facial exam Mouth: moist mucous membranes Neck Neck: Yes normal visual inspection, Yes full ROM and Yes trachea midline Chest Chest palpation & inspection: normal inspection of the chest Resp Effort & Inspection: normal respiratory effort, able to speak in complete sentences and no respiratory distress GI Inspection: Yes normal to inspection Back/Spine/Pelvis Cervical Spine: normal cervical lordosis Thoracic/Lumbar Spine: thoracic and lumbar spine normal to inspection Skin General skin exam: no rashes or lesions noted Neuro General: patient oriented x3, gait normal, tone normal and moves all extremities Extrem General: Yes normal to inspection and Yes capillary refill normal Office Procedures Post Void Residual Post Residual Void Post Void Residual (PVR): 0 [id number]-[id number] Void Residual by ultrasound Results AMB Urinalysis, Automated UA Leukoctes 0 Lela/uL Last Edit by DAQUAN Kilpatrick on 09/18/24 09:56 UA Nitrite Negative Last Edit by DAQUAN Kilpatrick on 09/18/24 09:56 UA Urobilinogen 0.2 mg/dL Last Edit by DAQUAN Kilpatrick on 09/18/24 09:56 UA Protein 0 mg/dL Last Edit by DAQUAN Kilpatrick on 09/18/24 09:56 UA pH 6.0 Last Edit by DAQUAN Kilpatrick on 09/18/24 09:56 UA Blood 10 Elia/uL Last Edit by DAQUAN Kilpatrick on 09/18/24 09:56 UA Specific [place] 1.015 Last Edit by DAQUAN Kilpatrick on 09/18/24 09:56 UA Ketone Negative Last Edit by DAUQAN Kilpatrick on 09/18/24 09:56 UA Bilirubin 0 mg/dL Last Edit by DAQUAN Kilpatrick on 09/18/24 09:56 UA Glucose 0 mg/dL Last Edit by DAQUAN Kilpatrick on 09/18/24 09:56 Results Reviewed Results Reviewed: Laboratory Last Values Urine pH (Auto) 6.0 09/18/24 09:55 Specific [place] (Auto) 1.015 09/18/24 09:55 Urine Protein (Auto) 0 mg/dL 09/18/24 09:55 Glucose (UA)(Auto) 0 mg/dL 09/18/24 09:55 Urine Ketones (Auto) Negative 09/18/24 09:55 Urine Blood (Auto) 10 Elia/uL 09/18/24 09:55 Urine Nitrite (Auto) Negative 09/18/24 09:55 Urine Bilirubin (Auto) 0 mg/dL 09/18/24 09:55 Urine Urobilinogen (Auto) 0.2 mg/dL 09/18/24 09:55 Leukocyte Esterase (Auto) 0 Lela/uL 09/18/24 09:55 Assessment & Plan Assessment & Plan (1) Urinary urgency: Code(s): R39.15 - Urgency of urination Category: Medical (2) Stress incontinence: Code(s): N39.3 - Stress incontinence (female) (male) Category: Medical Plan Twelve month follow-up Orders: Orders AMB Urinalysis Automated Today Z13.9 - Encounter for screening, unspecified Medications: New oxybutynin chloride ER 5 mg PO DAILY 90 tabs 3RF 90 days N31.9 - Neuromuscular dysfunction of bladder, unspecified, R39.15 - Urgency of urination Patient Instructions: Imaging studies, laboratory and physical exam results were discussed and reviewed in detail. No major barriers to patient understanding were identified. An opportunity to ask questions regarding the treatment plan was provided. All questions were answered. The patient expressed understanding and agreement with the above treatment plan. The patient is aware they should contact our office by phone for worsening of their current condition or the appearance of new urologic symptoms. Compliance is encouraged with any medications and followup testing that is ordered. It is a privilege to participate in the urologic care of your patient. If you have any questions or concerns regarding treatment for the above conditions, or other urologic issues, please do not hesitate to contact me. The office telephone contact is [phone]. This note is constructed using voice recognition software. While every effort has been made to ensure accuracy manager hardware errors may have been included. Yours sincerely, Dr Levi Mcgowan MD, [facility] - Urology Providers of Expert, Compassionate Care for the Genitourinary System Coding Level of Care Code Est Pt Level 4 (31634) Diagnoses Urinary urgency R39.15 Stress incontinence N39.3 CPT Codes Post Residual Void - PVR CPT Code: 52915-Avnj Void Residual by ultrasound ([id number])
== END 2024-09-18 10:16 | disposition home or self-care (01) ==
LOC: HO.HUSH 09:37
PROVIDERS: PCP Family Medicine; Visit Provider Urology
DX: R39.15 Urgency of urination (principal); N39.3 Stress incontinence (female) (male); Z13.9 Encounter for screening, unspecified
CPT/HCPCS: 99214

== ENCOUNTER → 2024-09-18 09:37 | Outpatient (BNVA) | payer MEDICARE, MEDICAID, SELFPAY | PROVIDERS: PCP Family Medicine; Visit Provider Urology | DX: R39.15 Urgency of urination (principal); N39.3 Stress incontinence (female) (male) | CPT/HCPCS: 51798; 81003; 99212 ==

== ENCOUNTER 2024-09-20 08:54 | Outpatient (AMB) | payer MEDICARE, MEDICAID, SELFPAY ==
--- NOTE | 2024-09-20 08:57 | MHC.OFFVISWM ---
VS Expanded 09/20/24 09:10 BP 112/62 Blood Pressure Location Rt brachial Blood Pressure Position Sitting Pulse 60 Pulse Source Pulse Oximeter Temp 96.6 F L Temperature Source Temporal Artery Scan Pulse Oximetry 96 Oxygen Delivery Method Room Air Height 5 ft 3 in Weight 456 lb BMI 80.8 Neck Circumference 17 in Waist Circumference 5 ft 7 in Comment unable to do tanita Intake Visit Reasons: [employer] Revision Gastric Band BMI 77.5 Intake Note: unable to do tanita. Allergies morphine Allergy (Verified 09/20/24 10:25) itchy oxycodone [From Percocet] Allergy (Verified 09/20/24 10:25) Itchy Medication List - Last Reconciled 09/20/24 by Alejandro Gonzalez MD acetaminophen (Tylenol Extra Strength) 1,000 mg PO Q6H PRN albuterol sulfate 90 mcg/actuation 0 mcg inhalation albuterol sulfate mg inhalation atorvastatin 20 mg PO DAILY baclofen 10 mg PO TID buspirone 10 mg PO BID calcium carb-mag hydrox-simeth 800-270-80 mg/10 mL (Mylanta Tonight) mL PO celecoxib (Celebrex) 100 mg PO BID cetirizine (Allergy Relief (cetirizine)) 10 mg PO DAILY PRN docusate sodium (Colace) 100 mg PO DAILY duloxetine (Cymbalta) 30 mg PO DAILY ergocalciferol (vitamin D2) (Vitamin D2) 1,250 mcg PO QWEEK estradiol 0.01%(0.1mg/gram) (Estrace) 1 g vaginal QWEEK fluticasone furoate-vilanterol 100-25 mcg/dose (Breo Ellipta) 1 ea inhalation DAILY furosemide 20 mg PO DAILY gabapentin 100 mg PO TID gabapentin 300 mg PO DAILY hydromorphone (Dilaudid) 2 mg PO Q4-6H PRN ibuprofen (Motrin IB) 200 mg PO Q6H PRN lactobacillus combo no.13 (Probiotic Pearls Complete) 1 cap PO DAILY lidocaine 4% (AsperFlex (lidocaine)) 1 patch topical DAILY PRN melatonin 3 mg PO BEDTIME PRN metoclopramide HCl 10 mg PO DAILY miconazole nitrate 2% 1 appl topical BID multivitamin with minerals 1 tab PO DAILY omeprazole magnesium (Prilosec OTC) 20 mg PO DAILY ondansetron HCl (Zofran) 4 mg PO Q6H oxybutynin chloride 5 mg PO TID oxybutynin chloride ER 5 mg PO DAILY 90 days topiramate 100 mg PO DAILY trazodone 50 mg PO BEDTIME PRN zolpidem (Ambien) 10 mg PO BEDTIME PRN HPI Comments Details: [facility] due to mobility issues. Has gained a lot of weight there Wakes up: 7am, Sleeps: 9pm Eats whatever food they serve at penitentiary There is no plan to leave the penitentiary soon [facility] Medical History (Updated 09/20/24 @ 10:25 by Alejandro Gonzalez MD) Morbid obesity Insomnia Asthma [facility] (current) use of opiate analgesic Osteoarthritis of knees, bilateral Chronic pain syndrome Rheumatoid arthritis Surgical History History of hernia repair H/O partial cystectomy History of cholecystectomy LAP-BAND surgery status Hx of section Family History Family/Other No problems noted. Social History Alcohol intake: former Patient Tobacco Use Status: Former Tobacco user Tobacco use type: Cigarette Female Reproductive History Menstrual Age of Menarche: 11 Physical Exam Vital Signs: Last Vital Signs Temp 96.6 F L 09/20/24 09:10 Pulse 60 09/20/24 09:10 BP 112/62 09/20/24 09:10 Pulse Ox 96 09/20/24 09:10 Oxygen Delivery Method Room Air 09/20/24 09:10 BMI result Body Mass Index 80.8 GI Inspection: Yes normal to inspection, Yes incision (well healed) and Yes obesity Palpation (GI): Firmness to palpation present (GI) Extrem Right lower extremity: edema Left lower extremity: edema Assessment & Plan Assessment & Plan (1) Morbid obesity: Code(s): E66.01 - Morbid (severe) obesity due to excess calories Category: Medical Plan: The band needs to be removed but the patient needs to lose significant weight first. We will contract the dietitian at the penitentiary and see what protein supplements they may be able to provide so I can prepare a proper nutritional plan for the patient. The patient is in agreement with the plan. Medications: Changed From zolpidem (Ambien) 5 mg PO BEDTIME PRN 7 tabs 0RF insomnia To zolpidem (Ambien) 10 mg PO BEDTIME PRN
[2024-09-20 09:10] VITALS: BP 112/62; PULSE 60; TEMP 35.9; O2SAT 96; BMI 80.8
== END 2024-09-20 10:27 | disposition home or self-care (01) ==
PROVIDERS: PCP Family Medicine; Visit Provider Surgery
DX: E66.813 Obesity, class 3 (principal); Z68.45 Body mass index [BMI] 70 or greater, adult
CPT/HCPCS: 99203

== ENCOUNTER → 2024-09-20 08:54 | Outpatient (BNVA) | payer MEDICARE, MEDICAID, SELFPAY | PROVIDERS: PCP Family Medicine; Visit Provider Surgery | DX: E66.01 Morbid (severe) obesity due to excess calories (principal); Z68.45 Body mass index [BMI] 70 or greater, adult | CPT/HCPCS: 99202 ==

== ENCOUNTER 2024-09-23 08:37 | Outpatient (REF) | payer MEDICARE, MEDICAID, SELFPAY ==
--- NOTE | ~2024-09-23 | XR_ITS ---
EXAMINATION: XR THORACIC SPINE CLINICAL INFORMATION: Pain. COMPARISON: None available. TECHNIQUE: 3 views of the thoracic spine were obtained. FINDINGS: Normal vertebral body alignment. The thoracic kyphosis is maintained. No acute fracture or subluxation. No loss of vertebral body height. Mild multilevel loss of intervertebral disc height. Multilevel bridging endplate osteophytes throughout the thoracic spine which can be seen in the setting of diffuse idiopathic skeletal hyperostosis (DISH). The visualized lungs are clear. XR/XR thoracic spine 2V IMPRESSION: No acute osseous abnormality. Multilevel bridging endplate osteophytes throughout the thoracic spine which can be seen in the setting of diffuse idiopathic skeletal hyperostosis (DISH). Electronically signed by: Bebo Whiteside MD 09/23/2024 10:05 AM MARLON LONGORIA
== END 2024-09-23 08:38 | disposition home or self-care (01) ==
LOC: HO.XRAY 08:37
PROVIDERS: PCP Family Medicine; Visit Provider Family Medicine
DX: M54.6 Pain in thoracic spine (principal)
CPT/HCPCS: 72070

== ENCOUNTER 2024-10-21 11:26 | Outpatient (AMB) | payer MEDICARE, MEDICAID, SELFPAY ==
--- NOTE | 2024-10-21 11:40 | MHC.OFFVIS ---
Vital Signs 10/21/24 12:07 Height 5 ft 3 in Weight 431 lb BMI 76.3 BP 147/69 H Blood Pressure Location Lt brachial Position Sitting Respiration 18 Pulse 71 Pulse Source Pulse Oximeter Pulse Oximetry (%) 96 Oxygen Delivery Method Room Air Intake Visit Reasons: 4 Week Follow Up Intake Note: Patient comes in for 4 weeks follow up. Reports shoulder pain 8/10, knee pain 6/10. Allergies morphine Allergy (Verified 09/20/24 10:25) itchy oxycodone [From Percocet] Allergy (Verified 09/20/24 10:25) Itchy HPI Comments Details: Ms. Fish is back in my office after x-ray of the right shoulder was performed. It demonstrated mild glenohumeral arthritis on the right. I offered the patient to perform therapeutic glenohumeral joint steroid injection. The patient lives in senior care and blood sugar can not be monitored every day for the next 15-20 days after the procedure. In the past she received radiofrequency ablation on the genicular nerves on the left with moderate results. She now reports that the pain in this knee is coming back as well. She had severe morbid obesity for most of her life. She had gastric banding which resulted in no improvement. My impression that she might need something more radical to help her otherwise her condition will go only worse. As her left knee diagnostic genicular nerve block which was performed on 01/03/2023 she reports excellent pain relief almost 100% since the injection up until now 4 days later.? Possibility exist to start treating her knee pain with the radiofrequency ablation on the left as well after we completed right procedure. ?Prior:? Rahel is severely morbidly obese 52 years old female suffering from bilateral knee pain.? Last time I saw this patient 1 year ago in July of 2021.? She received at that time diagnostic genicular nerve block on the right knee and she reported good pain relief from the diagnostic genicular nerve block.? She did not consider to visit us for the follow-up for the whole year.? She reports today that her left knee is starting to hurt.? She requests me to perform diagnostic left-sided genicular nerve block she hopes that her mobility will be greatly improved after the procedure [facility] Medical History (Updated 09/20/24 @ 10:25 by Alejandro Gonzalez MD) Morbid obesity Insomnia Asthma snf (current) use of opiate analgesic Osteoarthritis of knees, bilateral Chronic pain syndrome Rheumatoid arthritis Surgical History History of hernia repair H/O partial cystectomy History of cholecystectomy LAP-BAND surgery status Hx of section Family History Family/Other No problems noted. Social History Alcohol intake: former Patient Tobacco Use Status: Former Tobacco user Tobacco use type: Cigarette Female Reproductive History Menstrual Age of Menarche: 11 Review of Systems Const All systems reviewed & are unremarkable except as noted in HPI and below ENT Reports Normal hearing present Neuro Reports Normal hearing present, Denies Abnormal speech present, Denies confusion and Denies Sensory deficit (Neuro) Psych Denies confusion Physical Exam Vital Signs: Last Vital Signs Pulse 71 10/21/24 12:07 Resp 18 10/21/24 12:07 BP 147/69 H 10/21/24 12:07 Pulse Ox 96 10/21/24 12:07 Oxygen Delivery Method Room Air 10/21/24 12:07 BMI result Body Mass Index 76.3 Const General: No confusion Nutritional Appearance: obese morbidly obese Orientation/consciousness: No confusion Limitations: no limitations HEENT Head: Yes normal to inspection Ears: hearing grossly normal bilaterally General nose exam: Normal external nose present Face and sinus: Yes normal facial exam Eyes General: appearance normal, both eyes and all related structures EOM: EOMs intact bilaterally Neck Neck: Yes normal visual inspection and Yes no meningeal signs Resp Effort & Inspection: normal respiratory effort Auscultation: clear to auscultation bilaterally, no rales, no rhonchi and no wheezes Cardio Rate: regular rate Heart sounds: S1 normal heart sound present and S2 normal heart sound present GI Inspection: Yes normal to inspection Palpation (GI): Soft to palpation, nontender, no guarding and not rigid Skin Rashes: no rashes Wounds: no wounds Neuro General: no meningeal signs and No confusion Cranial nerves: Yes Normal hearing present Speech: No Abnormal speech present Sensory Exam: No Sensory deficit (Neuro) Extrem Other: + bilateral LE pitting edema, limited range of motion of the right shoulder joint painful palpation of the right shoulder joint Results Reviewed Results Reviewed: XR SHOULDER, RIGHT AP external rotation, Grashey, scapular Y, and axillary views of the right shoulder. FINDINGS: Glenohumeral joint: Mild osteoarthritis manifested by small marginal osteophytes. Acromioclavicular joint normal. Surrounding bone and soft tissues unremarkable. IMPRESSION: Mild osteoarthritis of the glenohumeral joint. Assessment & Plan Assessment & Plan (1) Shoulder pain: Code(s): M25.519 - Pain in unspecified shoulder (2) Osteoarthritis of right shoulder: Code(s): M19.011 - Primary osteoarthritis, right shoulder Category: Medical (3) Obesity, morbid, BMI 50 or higher: Code(s): E66.01 - Morbid (severe) obesity due to excess calories Category: Medical Plan X-ray of the right shoulder demonstrated mild osteoarthritis. However the symptoms are very prominent and I will schedule her for right shoulder steroid glenohumeral joint injection. She lives in senior care and they can monitor her blood glucose for 15-20 days after the procedure. She went for evaluation with bariatric surgery, Dr. Gonzalez, she is severely morbidly obese and reports increase of the body mass. She states that this is retained fluid which in fact maybe so however not to the extent of 450 lb. She was scheduled to go for this appointment on 08/26/2024 however she never when there. . Coding Level of Care Code Est Pt Level 3 (11204) Diagnoses Shoulder pain M25.519 Osteoarthritis of right shoulder M19.011 Obesity, morbid, BMI 50 or higher E66.01
[2024-10-21 12:07] VITALS: BP 147/69; PULSE 71; RESP 18; O2SAT 96; BMI 76.3
== END 2024-10-21 12:14 | disposition home or self-care (01) ==
PROVIDERS: PCP Family Medicine; Visit Provider Anesthesiology
DX: M25.519 Pain in unspecified shoulder (principal); M19.011 Primary osteoarthritis, right shoulder; E66.01 Morbid (severe) obesity due to excess calories
CPT/HCPCS: 99213

== ENCOUNTER → 2024-10-21 11:26 | Outpatient (BNVA) | payer MEDICARE, MEDICAID, SELFPAY | PROVIDERS: PCP Family Medicine; Visit Provider Anesthesiology | DX: M19.011 Primary osteoarthritis, right shoulder (principal); E66.01 Morbid (severe) obesity due to excess calories; Z68.45 Body mass index [BMI] 70 or greater, adult | CPT/HCPCS: 99212 ==

== ENCOUNTER 2024-12-31 06:23 | Outpatient (REF) | payer MEDICARE, MEDICAID, SELFPAY ==
--- OUTSIDE RECORDS SUMMARY | 2024-12-31 06:25 | XMS_ITS | Clinical Summary ---
Author Organization [address] [facility] Address [address] [place] [address] Phone Care Team Providers Care Heating Equipment Repairer Name Role Phone Griffin Fu MD Primary Care Provider [phone] Allergies Active Allergy Reactions Criticality Noted Date Comments Morphine 06/03/2015 Itchiness Oxycodone 06/03/2015 Itchy anxious Medications acetaminophen (TYLENOL 8 HOUR) 650 mg 8 hr tablet Take 1 tablet (650 mg total) by mouth every 8 (eight) hours if needed. Active albuterol HFA (PROAIR HFA ; PROVENTIL HFA ; VENTOLIN HFA) 90 mcg/actuation inhaler Inhale 2 puffs by mouth every 4 (four) hours if needed for wheezing or shortness of breath. 5 Active atorvastatin (LIPITOR) 20 mg tablet Take 1 tablet (20 mg total) by mouth 1 (one) time each day. Active baclofen (LioresaL) 2,000 mcg/mL intrathecal solution by intrathecal route continuously. Active busPIRone (BUSPAR) 10 mg tablet Take 1 tablet (10 mg total) by mouth 3 (three) times a day. Active celecoxib (CeleBREX) 100 mg capsule Take 1 capsule (100 mg total) by mouth 2 (two) times a day. Active cetirizine (ZyrTEC) 10 mg tablet Take 1 tablet (10 mg total) by mouth 1 (one) time each day. 5 Active cetirizine (ZyrTEC) 10 mg chewable tablet Chew 1 tablet (10 mg total) 1 (one) time each day. Active docusate sodium (COLACE) 100 mg capsule Take 1 capsule (100 mg total) by mouth 2 (two) times a day. Active DULoxetine (CYMBALTA) [address] capsule Take 1 capsule (60 mg total) by mouth 1 (one) time each day. Active estradioL (ESTRACE) 0.01 % (0.1 mg/gram) vaginal cream Insert 1 g into the vagina at bedtime. Active fluticasone HFA (FLOVENT HFA) 44 mcg/actuation inhaler Inhale 2 puffs by mouth 2 (two) times a day. 5 Active fluticasone furoate-vilanter oL (BREO ELLIPTA) 100-25 mcg/dose inhaler Inhale by mouth. Active furosemide (LASIX) 20 mg tablet Take 1 tablet (20 mg total) by mouth 1 (one) time each day. Active gabapentin (NEURONTIN) 400 mg capsule Take 1 capsule (400 mg total) by mouth 3 (three) times a day. Active ibuprofen (ADVIL,MOTRIN) 200 mg tablet Take 1 tablet (200 mg total) by mouth every 6 (six) hours if needed. Active lidocaine HCL 4 % cream Apply topically 1 (one) time each day if needed. Active magnesium citrate solution Take 30 mL by mouth. Active melatonin 1 mg tablet,chewable Chew 1 mg. Act wilber omeprazole OTC (PriLOSEC OTC) 20 mg EC tablet Take 1 tablet (20 mg total) by mouth 1 (one) time each day. Active ondansetron (ZOFRAN) 4 mg tablet Take 1 tablet (4 mg total) by mouth every 8 (eight) hours if needed. Active oxyBUTYnin XL (DITROPAN-XL) 5 mg 24 hr tablet Take 1 tablet (5 mg total) by mouth 1 (one) time each day. Active topiramate (TOPAMAX) 25 mg tablet Take 1 tablet (25 mg total) by mouth 2 (two) times a day. Active traZODone (DESYREL) 50 mg tablet Take 1 tablet (50 mg total) by mouth at bedtime. 5 Active triamcinolone acetonide (KENALOG-40) 40 mg/mL injection 1 mL (40 mg total) by Other route 1 (one) time. 4 Active zolpidem (AMBIEN) 10 mg tablet Take 1 tablet (10 mg total) by mouth at bedtime as needed. Max Daily Amount: 10 mg Active ergocalciferol (VITAMIN D-2) 1,250 mcg (50,000 unit) capsule Take 1 capsule (50,000 Units total) by mouth. Active NAPROXEN SODIUM ORAL Take by mouth. Activ e phenylephrine (SUDAFED PE) 10 mg tablet Take by mouth. Activ e diclofenac (VOLTAREN) 75 mg EC tablet Take 1 tablet (75 mg total) by mouth 2 times daily. 0 Active phenylephrine-DM -Guiafenesin (ROBITUSSIN COUGH & COLD CF) 5-10-100 mg/5 mL liquid liquid Take by mouth. A ctive lisinopriL (PRINIVIL,ZESTRI L) 20 mg tablet Take 1 tablet (20 mg total) by mouth daily. 0 Active Active Problems Problem Noted Date Diagnosed Date Asthma 08/22/2024 Bilateral carpal tunnel syndrome 08/22/2024 Chronic pain of both knees 01/08/2020 Insomnia due to other mental disorder 01/08/2020 Morbid obesity 01/08/2020 Seasonal allergies 01/08/2020 Absolute anemia 06/08/2015 Anxiety 06/03/2015 Depression 06/03/2015 Hyperpiesia 06/03/2015 Incontinence in female 06/03/2015 Encounters Date Type Department Care Team Description 12/03/2024 Lab Requisition [facility] - Main Lab [address] [facility] [place] [phone] Griffin Fu MD Vitamin D deficiency, unspecified; Essential (primary) hypertension; Type 2 diabetes mellitus without complications ([facility]) 11/11/2024 9:15 AM EST Office Visit Orthopedic Surgery [address] [phone] Sima Alicia PA S/P carpal tunnel release (Primary Dx) 10/01/2024 11:30 AM EST Office Visit Orthopedic Surgery [address] [phone] Sima Alicia PA S/P carpal tunnel release (Primary Dx) from Last 3 Months Surgical History Surgery Date Site/Laterality Comments LAPAROSCOPIC GASTRIC BANDING PROCEDURE: LAP ADJUSTABLE GASTRIC BAND; COMMENT: 2007 BLADDER SURGERY PROCEDURE: HISTORICAL BLADDER SURGERY; COMMENT: [facility] Medical History Medical History Date Comments Hypertension DX:Hypertension Depression DX:Depression; C OMMENT: counselor, awaiting psychiatrist- [facility] Anxiety DX:Anxiety Insomnia DX:Insomnia Asthma DX:Asthma Seasonal allergies DX:Seasonal a llergies Family History Medical History Relation Name Comments Asthma Father from cirrh osis of liver Arthritis Mother hypertension Other: epilepsy Sister 1 Relation Name Status Comments Father Mother Sister 1 Sister 2 Social History Tobacco Use Types Packs/Day Years Used Date Smoking Tobacco: Former Cigarettes Q uit: 11/20/2012 Smokeless Tobacco: Never Alcohol Use Standard Drinks/Week Comments Yes 0 (1 standard drink = 0.6 oz pur e alcohol) Comments Unknown Sex and Gender Information Value Date Recorded Sex Assigned at Not on file Legal Sex Female 4:51 AM EST Gender Identity Not on file Sexual Orientation Not on file Obstetrics History Last Filed Vital Signs Vital Sign Reading Time Taken Comments Blood Pressure - - Pulse - - Temperature - - Respiratory Rate - - Oxygen Saturation - - Inhaled Oxygen Concentration - - Weight 199 kg (437 lb 11.2 oz) 09/03/2024 9:53 A M EDT Height 160 cm (5' 3 ) 09/03/2024 9:53 AM EDT Body Mass Index 77.53 09/03/2024 9:53 AM EDT Plan of Treatment Health Maintenance Due Date Last Done Comments Breast Cancer Screening 1971 Pneumococcal Vaccine: Pediatrics (0 to 5 Years) and At-Risk Patients (6 to 64 Years) (1 of 2 - PCV) 1977 Diabetes: Annual Foot Exam 1981 Diabetes: Annual Retina Eye Exam 1981 Hepatitis B Vaccines (1 of 3 - 19+ 3-dose series) 1990 Cervical Cancer Screening: P ap Smear 02/13/1992 DTaP,Tdap,and Td Vaccines (2 - Td or Tdap) 09/21/2017 09/21/2007 Zoster Vaccines (1 of 2) 2021 Colorectal Cancer Screening: Colonoscopy 10/23/2022 Depression Screening 10/23/2022 Medicare Annual Wellness Visit 10/23/2022 Social Influencers of Health Screening 10/23/2022 COVID-19 Vaccine (1 - 2023-2 5 season) 2024 Influenza Vaccine (#1) 2024 Diabetes: Annual Urine Albumin-Creatinine Ratio (uACR) 11/05/2024 Diabetes: Blood Sugar Contro l Test (HGBA1C) 06/03/2025 12/04/2024 Diabetes: Annual GFR (Glomerular Filtration Rate) 12/04/2025 12/04/2024, 06/03/2015 Hypertension/CHF/CAD Annual BMP Blood Test 12/04/2025 12/04/2024, 06/03/2015 Cholesterol Screening (Lipid Panel) 12/04/2029 12/04/2024, 06/03/2015 HIV Screening Completed 06/03/2015 Hepatitis C Screening Completed 06/03/2015 HIB Vaccines Aged Out No longer eligi ble based on patient's age to complete this topic HPV Vaccines Aged Out No longer eligi ble based on patient's age to complete this topic Hepatitis A Vaccines Aged Out No long er eligible based on patient's age to complete this topic IPV Vaccines Aged Out No longer eligi ble based on patient's age to complete this topic MMR Vaccines Aged Out No longer eligi ble based on patient's age to complete this topic Meningococcal ACWY Vaccine Aged Out N o longer eligible based on patient's age to complete this topic RSV Immunization Patients Under 20 months Aged Out No longer eligible b ased on patient's age to complete this topic Varicella Vaccines Aged Out No longer eligible based on patient's age to complete this topic Procedures Procedure Name Priority Date/Time Associated Diagnosis Comments HEMOGLOBIN A1C Routine 12/04/2024 5:23 AM EST Vitamin D deficiency, unspecified Essential (primary) hypertension Type 2 diabetes mellitus without complications (CMS/HCC) VITAMIN D 25 HYDROXY Routine 12/04/2024 5:23 AM EST Vitamin D deficiency, unspecified Essential (primary) hypertension Type 2 diabetes mellitus without complications (CMS/HCC) LIPID PANEL WITH REFLEX TO DIRECT LDL Routine 12/04/2024 5:23 AM EST Vitamin D deficiency, unspecified Essential (primary) hypertension Type 2 diabetes mellitus without complications (CMS/HCC) COMPREHENSIVE METABOLIC PANEL Routine 12/04/2024 5:23 AM EST Vitamin D deficiency, unspecified Essential (primary) hypertension Type 2 diabetes mellitus without complications (CMS/HCC) COMPLETE BLOOD COUNT Routine 12/04/2024 5:23 AM EST Vitamin D deficiency, unspecified Essential (primary) hypertension Type 2 diabetes mellitus without complications (CMS/HCC) HEPATITIS C SCREENING Routine 06/03/2015 HIV SCREENING Routine 06/03/2015 from Last 3 Months or Most Recently Relevant to Health Maintenance Results * (ABNORMAL) Lipid panel with reflex to direct LDL (12/04/2024 5:23 AM EST) Cholesterol 113 0 - 200 mg/dL LAB CHEMISTRY METHOD 12/04/2024 10:16 AM [facility] Triglycerides 69 0 - 150 mg/dL LAB CHEMISTRY METHOD 12/04/2024 10:16 AM [facility] HDL 32(L) >=40 mg/dL LAB CHEMISTRY METHOD 12/04/2024 10:16 AM [facility] LDL Calculated 67 0 - 100 mg/dL LAB CHEMISTRY METHOD 12/04/2024 10:16 AM [facility] VLDL Cholesterol Clive 13.8 mg/dL LAB CHEMISTRY METHOD 12/04/2024 10:16 AM [facility] Non HDL Chol. (LDL+VLDL) 81 <145 mg/dL LAB CHEMISTRY METHOD 12/04/2024 10:16 AM [facility] Chol/HDL Ratio 3.5 0.0 - 4.4 LAB CHEMISTRY METHOD 12/04/2024 10:16 AM [facility] Blood Venous blood specimen / Unknown Venipuncture / Unknown 12/04/2024 5:23 AM EST 12/04/2024 9:19 AM EST Griffin Fu MD LAB BLOOD ORDERABLES Final Resul t Performing Organization Address City/[facility]/ZIP Co de Phone Number [facility] [address] [place] [address], [place] [phone] * Vitamin D 25 hydroxy (12/04/2024 5:23 AM EST) [facility] Vit D, 25-Hydroxy 50.1 30.0 - 80.0 ng/mL LAB CHEMISTRY METHOD 12/04/2024 10:21 AM EST [facility] Blood Venous blood specimen / Unknown Venipuncture / Unknown 12/04/2024 5:23 AM EST 12/04/2024 9:19 AM EST Griffin Fu MD LAB BLOOD ORDERABLES Final Resul t Performing Organization Address [facility]/ZIP Co de Phone Number [facility] [address] [place] [address], [place] [phone] * (ABNORMAL) Complete blood count (12/04/2024 5:23 AM EST) [facility] WBC 7.4 4.8 - 10.8 K/mcL LAB HEMETOLOGY METHOD 12/04/2024 9:51 AM [facility] RBC 4.80 3.80 - 4.80 M/mcL LAB HEMETOLOGY METHOD 12/04/2024 9:51 AM [facility] Hemoglobin 11.8 11.5 - 16.0 g/dL LAB HEMETOLOGY METHOD 12/04/2024 9:51 AM [facility] Hematocrit 40.0 35.0 - 47.0 % LAB HEMETOLOGY METHOD 12/04/2024 9:51 AM [facility] MCV 83.2 79.0 - 98.0 FL LAB HEMETOLOGY METHOD 12/04/2024 9:51 AM EST [facility] MCH 24.5(L) 27.0 - 32.0 pcg LAB HEMETOLOGY METHOD 12/04/2024 9:51 AM EST [facility] MCHC 29.5(L) 32.0 - 37.0 g/dL LAB HEMETOLOGY METHOD 12/04/2024 9:51 AM EST [facility] RDW 16.2(H) 11.0 - 15.0 % LAB HEMETOLOGY METHOD 12/04/2024 9:51 AM EST [facility] Platelets 347 130 - 400 K/mcL LAB HEMETOLOGY METHOD 12/04/2024 9:51 AM EST [facility] MPV 9.8 7.0 - 11.0 FL LAB HEMETOLOGY METHOD 12/04/2024 9:51 AM EST [facility] NRBC 0.0 <1.0 % LAB HEMETOLOGY METHOD 12/04/2024 9:51 AM EST [facility] NRBC Absolute 0.00 <0.10 K/mcL LAB HEMETOLOGY METHOD 12/04/2024 9:51 AM EST [facility] Blood Venous blood specimen / Unknown Venipuncture / Unknown 12/04/2024 5:23 AM EST 12/04/2024 9:19 AM EST us Griffin Fu MD LAB BLOOD ORDERABLES Final Resul t [facility] [address] [place] [address], * Hemoglobin A1c (12/04/2024 5:23 AM EST) Hemoglobin A1C 5.4 <6.5 % LAB CHEMISTRY METHOD 12/04/2024 12:27 PM EST [facility] Mean Bld Glu Estim. 108 mg/dL LAB CHEMISTRY METHOD 12/04/2024 12:27 PM [facility] Blood Venous blood specimen / Unknown Venipuncture / Unknown 12/04/2024 5:23 AM EST 12/04/2024 9:19 AM EST us Griffin Fu MD LAB BLOOD ORDERABLES Final Resul t [facility] [address] [place] [address], [place] [phone] * (ABNORMAL) Comprehensive metabolic panel (12/04/2024 5:23 AM EST) Sodium 142 133 - 145 mmol/L LAB CHEMISTRY METHOD 12/04/2024 10:16 AM [facility] Potassium 4.4 3.5 - 5.5 mmol/L LAB CHEMISTRY METHOD 12/04/2024 10:16 AM [facility] Chloride 109 96 - 110 mmol/L LAB CHEMISTRY METHOD 12/04/2024 10:16 AM [facility] CO2 28 21 - 32 mmol/L LAB CHEMISTRY METHOD 12/04/2024 10:16 AM [facility] Anion Gap 5 3 - 11 LAB CHEMISTRY METHOD 12/04/2024 10:16 AM [facility] Glucose 82 70 - 100 mg/dL LAB CHEMISTRY METHOD 12/04/2024 10:16 AM [facility] BUN 25 5 - 25 mg/dL LAB CHEMISTRY METHOD 12/04/2024 10:16 AM [facility] Creatinine 0.66 0.50 - 1.10 mg/dL LAB CHEMISTRY METHOD 12/04/2024 10:16 AM [facility] eGFR 105 >=60 mL/min/1. 73m2 LAB CHEMISTRY METHOD 12/04/2024 10:16 AM [facility] Comment:Calculation based on the??Chronic Kidney Disease Epidemiology Collaboration (CKD-EPI) equation refit??without adjustment for race. BUN/Creatinine Ratio 37.9 LAB CHEMISTRY METHOD 12/04/2024 10:16 AM [facility] Calcium 8.6 8.5 - 10.5 mg/dL LAB CHEMISTRY METHOD 12/04/2024 10:16 AM [facility] AST (SGOT) 15 10 - 42 unit/L LAB CHEMISTRY METHOD 12/04/2024 10:16 AM [facility] ALT (SGPT) 18 10 - 60 unit/L LAB CHEMISTRY METHOD 12/04/2024 10:16 AM [facility] Alkaline Phosphatase 99 42 - 121 unit/L LAB CHEMISTRY METHOD 12/04/2024 10:16 AM [facility] Total Protein 6.5 6.0 - 8.0 g/dL LAB CHEMISTRY METHOD 12/04/2024 10:16 AM [facility] Albumin 3.0(L) 3.2 - 5.0 g/dL LAB CHEMISTRY METHOD 12/04/2024 10:16 AM [facility] Total Bilirubin 0.5 0.0 - 1.4 mg/dL LAB CHEMISTRY METHOD 12/04/2024 10:16 AM [facility] Blood Venous blood specimen / Unknown Venipuncture / Unknown 12/04/2024 5:23 AM EST 12/04/2024 9:19 AM EST Griffin Fu MD LAB BLOOD ORDERABLES Final Resul t [facility] [address] [place] [address], * HIV Screening (06/03/2015) HIV Screening abstracted Historical Provider HEALTH MAINTENANCE Final Result * Hepatitis C Screening (06/03/2015) Hepatitis C Screening abstracted Historical Provider HEALTH MAINTENANCE Final Result from Last 3 Months or Most Recently Relevant to Health Maintenance Insurance MEDICARE [place]ICAID - [place] Advance Directives Documents on File Type Date Recorded Patient Steel Rod Buster Expl anation Health Care Decision (hx) 09/20/2024 KRISTOPHER JOHNSON DIRECTIVE Care Teams Heating Equipment Repairer Relationship Specialty Start Date End Date Griffin Fu MD [address] [place] [address] [address] [place], [address] PCP - General 07/09/24
--- OUTSIDE RECORDS SUMMARY | 2024-12-31 06:25 | XMS_ITS | Encounter Summary ---
Author Organization [employer] Address [address] [place] [address] Care Team Providers Care Grant Specialist Name Role Phone Griffin Fu MD Primary Care Provider [phone] Encounter Details Date Type Department Care Team (Late st Contact Info) Description 12/03/[address] [facility] - Main Lab [address] [facility] [place] [address] Griffin Fu MD [address] [place] [address] [address] [place], [phone] Vitamin D deficiency, unspecified; Essential (primary) hypertension; Type 2 diabetes mellitus without complications (CMS/[facility]) Social History Tobacco Use Types Packs/Day Years [...] on file Sexual Orientation Not on file documented as of this encounter Plan of Treatment Not on file documented as of this encounter Procedures Procedure Name Priority Date/Time Associated Diagnosis Comments LIPID PANEL WITH REFLEX TO DIRECT LDL [...] Type 2 diabetes mellitus without complications (CMS/HCC) HEMOGLOBIN A1C Routine 12/04/2024 5:23 AM EST Vitamin D deficiency, unspecified Essential (primary) hypertension Type 2 diabetes mellitus without complications (CMS/HCC) COMPREHENSIVE METABOLIC PANEL Routine 12/04/2024 5:23 AM EST Vitamin D deficiency, unspecified Essential (primary) hypertension Type 2 diabetes mellitus without complications (CMS/HCC) documented in this encounter Results * Hemoglobin A1c (12/04/2024 5:23 AM EST) Hemoglobin A1C 5.4 <6.5 % LAB CHEMISTRY METHOD 12/04/2024 12:27 PM EST [facility] Mean Bld Glu Estim. 108 mg/dL LAB CHEMISTRY METHOD 12/04/2024 12:27 PM EST [facility] Blood Venous blood specimen / Unknown Venipuncture / Unknown 12/04/2024 5:23 AM EST 12/04/2024 9:19 AM EST us Griffin Fu MD LAB BLOOD ORDERABLES Final Resul t [facility] [address] [place] [address], * Vitamin D 25 hydroxy (12/04/2024 5:23 AM EST) Vit D, 25-Hydroxy 50.1 30.0 - 80.0 ng/mL LAB CHEMISTRY METHOD 12/04/2024 10:21 AM EST [facility] Blood Venous blood specimen / Unknown Venipuncture / Unknown 12/04/2024 5:23 AM EST 12/04/2024 9:19 AM EST us Griffin Fu MD LAB BLOOD ORDERABLES Final Resul t Performing Organization Address City/[facility]/ZIP Co de Phone Number [facility] [address] [place] [address], [place] [phone] * (ABNORMAL) Lipid panel with reflex to direct LDL (12/04/2024 5:23 AM EST) Cholesterol 113 0 - 200 mg/dL LAB CHEMISTRY METHOD 12/04/2024 10:16 AM EST [facility] Triglycerides 69 0 - 150 mg/dL LAB CHEMISTRY METHOD 12/04/2024 10:16 AM EST [facility] HDL 32(L) >=40 mg/dL LAB CHEMISTRY METHOD 12/04/2024 10:16 AM EST [facility] LDL Calculated 67 0 - 100 mg/dL LAB CHEMISTRY METHOD 12/04/2024 10:16 AM EST [facility] VLDL Cholesterol Clive 13.8 mg/dL LAB CHEMISTRY METHOD 12/04/2024 10:16 AM EST [facility] Non HDL Chol. (LDL+VLDL) 81 <145 mg/dL LAB CHEMISTRY METHOD 12/04/2024 10:16 AM EST [facility] Chol/HDL Ratio 3.5 0.0 - 4.4 LAB CHEMISTRY METHOD 12/04/2024 10:16 AM EST [facility] Blood Venous blood specimen / Unknown Venipuncture / Unknown 12/04/2024 5:23 AM EST 12/04/2024 9:19 AM EST us Griffin Fu MD LAB BLOOD ORDERABLES Final Resul t Performing Organization Address City/[facility]/ZIP Co de Phone Number [facility] [address] [place] [address], [place] [phone] * (ABNORMAL) Comprehensive metabolic panel (12/04/2024 5:23 AM EST) Sodium 142 133 - 145 mmol/L LAB CHEMISTRY METHOD 12/04/2024 10:16 AM [facility] Potassium 4.4 3.5 - 5.5 mmol/L LAB CHEMISTRY METHOD 12/04/2024 10:16 AM [facility] Chloride 109 96 - 110 mmol/L LAB CHEMISTRY METHOD 12/04/2024 10:16 AM [facility] CO2 28 21 - 32 mmol/L LAB CHEMISTRY METHOD 12/04/2024 10:16 AM [facility] Anion Gap 5 3 - 11 LAB CHEMISTRY METHOD 12/04/2024 10:16 AM [facility] Glucose 82 70 - 100 mg/dL LAB CHEMISTRY METHOD 12/04/2024 10:16 AM [facility] BUN 25 5 - 25 mg/dL LAB CHEMISTRY METHOD 12/04/2024 10:16 AM [facility] Creatinine 0.66 0.50 - 1.10 mg/dL LAB CHEMISTRY METHOD 12/04/2024 10:16 AM [facility] eGFR 105 >=60 mL/min/1. 73m2 LAB CHEMISTRY METHOD 12/04/2024 10:16 AM [facility] Comment:Calculation based on the??Chronic Kidney Disease Epidemiology Collaboration (CKD-EPI) equation refit??without adjustment for race. BUN/Creatinine Ratio 37.9 LAB CHEMISTRY METHOD 12/04/2024 10:16 AM [facility] Calcium 8.6 8.5 - 10.5 mg/dL LAB CHEMISTRY METHOD 12/04/2024 10:16 AM [facility] AST (SGOT) 15 10 - 42 unit/L LAB CHEMISTRY METHOD 12/04/2024 10:16 AM [facility] ALT (SGPT) 18 10 - 60 unit/L LAB CHEMISTRY METHOD 12/04/2024 10:16 AM [facility] Alkaline Phosphatase 99 42 - 121 unit/L LAB CHEMISTRY METHOD 12/04/2024 10:16 AM [facility] Total Protein 6.5 6.0 - 8.0 g/dL LAB CHEMISTRY METHOD 12/04/2024 10:16 AM [facility] Albumin 3.0(L) 3.2 - 5.0 g/dL LAB CHEMISTRY METHOD 12/04/2024 10:16 AM [facility] Total Bilirubin 0.5 0.0 - 1.4 mg/dL LAB CHEMISTRY METHOD 12/04/2024 10:16 AM [facility] Blood Venous blood specimen / Unknown Venipuncture / Unknown 12/04/2024 5:23 AM EST 12/04/2024 9:19 AM EST us Griffin Fu MD LAB BLOOD ORDERABLES Final Resul t [facility] [address] [place] [address], * (ABNORMAL) Complete blood count (12/04/2024 5:23 AM EST) WBC 7.4 4.8 - 10.8 K/mcL LAB HEMETOLOGY METHOD 12/04/2024 9:51 AM [facility] RBC 4.80 3.80 - 4.80 M/mcL LAB HEMETOLOGY METHOD 12/04/2024 9:51 AM [facility] Hemoglobin 11.8 11.5 - 16.0 g/dL LAB HEMETOLOGY METHOD 12/04/2024 9:51 AM [facility] Hematocrit 40.0 35.0 - 47.0 % LAB HEMETOLOGY METHOD 12/04/2024 9:51 AM [facility] MCV 83.2 79.0 - 98.0 FL LAB HEMETOLOGY METHOD 12/04/2024 9:51 AM EST [facility] MCH 24.5(L) 27.0 - 32.0 pcg LAB HEMETOLOGY METHOD 12/04/2024 9:51 AM [facility] MCHC 29.5(L) 32.0 - 37.0 g/dL LAB HEMETOLOGY METHOD 12/04/2024 9:51 AM EST [facility] RDW 16.2(H) 11.0 - 15.0 % LAB HEMETOLOGY METHOD 12/04/2024 9:51 AM EST [facility] Platelets 347 130 - 400 K/mcL LAB HEMETOLOGY METHOD 12/04/2024 9:51 AM EST [facility] MPV 9.8 7.0 - 11.0 FL LAB HEMETOLOGY METHOD 12/04/2024 9:51 AM EST [facility] NRBC 0.0 <1.0 % LAB HEMETOLOGY METHOD 12/04/2024 9:51 AM [facility] NRBC Absolute 0.00 <0.10 K/mcL LAB HEMETOLOGY METHOD 12/04/2024 9:51 AM [facility] Blood Venous blood specimen / Unknown Venipuncture / Unknown 12/04/2024 5:23 AM EST 12/04/2024 9:19 AM EST us Griffin Fu MD LAB BLOOD ORDERABLES Final Resul t [facility] [address] [place] [address], documented in this encounter Visit Diagnoses Diagnosis Vitamin D deficiency, unspecified Essential (primary) hypertension Unspecified essential hypertension Type 2 diabetes mellitus without complications (CMS/HCC) documented in this encounter Care Teams Grant Specialist Relationship Specialty Start Date End Date Griffin Fu MD [address] [facility] [address] [place], [phone] PCP - General 07/09/24 documented as of this encounter
== END 2024-12-31 06:24 | disposition home or self-care (01) ==
LOC: CF 06:23
PROVIDERS: Visit Provider Anesthesiology
DX: Z13.89 Encounter for screening for other disorder (principal)

== ENCOUNTER 2025-09-18 10:15 | Outpatient (REF) | payer MEDICARE, MEDICAID, SELFPAY | END 2025-09-18 10:16 | disposition home or self-care (01) | LOC: HO.LAB 10:15 | PROVIDERS: PCP Family Medicine; Visit Provider Nurse Practitioner Family | DX: R31.29 Other microscopic hematuria (principal); R39.15 Urgency of urination; N39.3 Stress incontinence (female) (male) | CPT/HCPCS: 51798; 81003; 88112; 99212 ==

== ENCOUNTER 2025-09-18 10:15 | Outpatient (AMB) | payer MEDICARE, MEDICAID, SELFPAY ==
--- NOTE | 2025-09-18 10:25 | MHC.OFFVIS ---
Intake Visit Reasons: 1y follow up Intake Note: Patient is present for 1y f/u Urology Medication:OXYBUTYNIN,ETRADIOL Antibiotic Allergy:NONE Blood Thinner:NONE TODAY'S PVR 0ML'S Inside Sales Consultant Required: No Allergies morphine Allergy (Verified 09/18/25 11:29) itchy oxycodone (From Percocet) Allergy (Verified 09/18/25 11:29) Itchy Medication List - Last Reconciled 09/18/25 by LUCRETIA KulkarniP- albuterol sulfate 90 mcg/actuation 0 mcg inhalation atorvastatin 20 mg PO DAILY baclofen 10 mg PO TID buspirone 10 mg PO BID celecoxib (Celebrex) 100 mg PO BID cetirizine (Allergy Relief (cetirizine)) 10 mg PO DAILY PRN docusate sodium (Colace) 100 mg PO DAILY duloxetine (Cymbalta) 30 mg PO DAILY estradiol 0.01%(0.1mg/gram) (Estrace) 1 g vaginal QWEEK furosemide 20 mg PO DAILY gabapentin 100 mg PO TID lidocaine 4% (AsperFlex (lidocaine)) 1 patch topical DAILY PRN melatonin 3 mg PO BEDTIME PRN metoclopramide HCl 10 mg PO DAILY multivitamin with minerals 1 tab PO DAILY omeprazole magnesium (Prilosec OTC) 20 mg PO DAILY oxybutynin chloride ER 5 mg PO DAILY 90 days topiramate 100 mg PO DAILY HPI Comments Details: Rahel is a pleasant 55-year-old female patient of who was accompanied by her daughter at today's office visit. She has a past medical history of obesity, insomnia, asthma, osteoarthritis of bilateral knees, chronic pain syndrome, and rheumatoid arthritis. She presents to the office today for follow-up of her bladder spasms and mild stress incontinence. In discussion with the patient today she denies having had any bothersome urinary issues or concerns since her last office visit here approximately 1 year ago. She reports compliance with oxybutynin as prescribed. In office urinalysis results reviewed with the patient today trace microscopic hematuria otherwise within normal limits. We did discussed potential causes of microscopic as well as risks and benefits of these interventions. PVR 0 mL. She reports bladder spasms she had been experiencing frequently have significantly improved. She denies urinary urgency, urinary frequency, incontinence, nocturia, hematuria, dysuria, foul smelling urine, changes to urinary stream, flank pain, fever, and or chills. She is happy with her current voiding parameters. All questions were answered. She otherwise offers no other issues or concerns at this time. PREVIOUS OFFICE NOTE: Chronic pelvic pain associated with bladder adhesions Underwent partial bladder resection 1990 Secondary to section with sepsis Since procedure has had intermittent pelvic and bladder pain Associated with urinary dribbling when that occurs Multiple episodes since June last year No prior imaging PFSH Medical History Morbid obesity Insomnia Asthma FPC (current) use of opiate analgesic Osteoarthritis of knees, bilateral Chronic pain syndrome Rheumatoid arthritis Surgical History History of hernia repair H/O partial cystectomy History of cholecystectomy LAP-BAND surgery status Hx of section Family History Family/Other No problems noted. Social History Alcohol intake: former Patient Tobacco Use Status: Former Tobacco user Tobacco use type: Cigarette Female Reproductive History Menstrual Age of Menarche: 11 Review of Systems Const All systems reviewed & are unremarkable except as noted in HPI and below Physical Exam Const General: cooperative, comfortable, no acute distress, well developed, alert and awake Nutritional Appearance: overweight Orientation/consciousness: patient oriented x3 Limitations: ambulation with walker HEENT Head: Yes normal to inspection, Yes normocephalic and Yes atraumatic Ears: hearing grossly normal bilaterally Eyes General: appearance normal, both eyes and all related structures Neck Neck: Yes normal visual inspection and Yes trachea midline Chest Chest palpation & inspection: normal inspection of the chest Resp Effort & Inspection: normal respiratory effort and able to speak in complete sentences Cardio Rate: regular rate GI Inspection: Yes normal to inspection General: Yes no CVA tenderness Back/Spine/Pelvis Back: no CVA tenderness Skin General skin exam: no rashes or lesions noted Neuro General: patient oriented x3 Extrem General: Yes normal to inspection Psych Appearance: grossly normal and well kempt Mental Status: mental status grossly normal Speech and movement: Normal speech and movement present and Clear speech present Affect: normal affect Attitude: cooperative Thought process: Normal thought process present Thought content: Normal thought content present Insight: Fair insight present (Psych) Judgement: Fair judgement present (Psych) Office Procedures Post Void Residual Post Residual Void Post Void Residual (PVR): 0 [id number]-[id number] Void Residual by ultrasound Results AMB Urinalysis, Automated UA Leukoctes 125 Lela/uL Last Edit by DAQUAN Kilpatrick on 09/18/25 10:56 UA Nitrite Negative Last Edit by DAQUAN Kilpatrick on 09/18/25 10:56 UA Urobilinogen 0.2 mg/dL Last Edit by Jason Caal [facility] on 09/18/25 10:56 UA Protein 30 mg/dL Last Edit by Jason Caal [facility] on 09/18/25 10:56 UA pH 6.0 Last Edit by Jason Caal [facility] on 09/18/25 10:56 UA Blood 25 Elia/uL Last Edit by Jason Caal [facility] on 09/18/25 10:56 UA Specific Sadorus 1.015 Last Edit [facility] on 09/18/25 10:56 UA Ketone Negative Last Edit by Jason Caal [facility] on 09/18/25 10:56 UA Bilirubin 0 mg/dL Last Edit by Jason Caal [facility] on 09/18/25 10:56 UA Glucose 0 mg/dL Last Edit by Jason Caal [facility] on 09/18/25 10:56 Results Reviewed Results Reviewed: Laboratory Last Values Urine pH (Auto) 6.0 09/18/25 10:55 Specific Sadorus (Auto) 1.015 09/18/25 10:55 Urine Protein (Auto) 30 mg/dL 09/18/25 10:55 Glucose (UA)(Auto) 0 mg/dL 09/18/25 10:55 Urine Ketones (Auto) Negative 09/18/25 10:55 Urine Blood (Auto) 25 Elia/uL 09/18/25 10:55 Urine Nitrite (Auto) Negative 09/18/25 10:55 Urine Bilirubin (Auto) 0 mg/dL 09/18/25 10:55 Urine Urobilinogen (Auto) 0.2 mg/dL 09/18/25 10:55 Leukocyte Esterase (Auto) 125 Lela/uL 09/18/25 10:55 Assessment & Plan Assessment & Plan (1) Urinary urgency: Code(s): R39.15 - Urgency of urination Category: Medical (2) Stress incontinence: Code(s): N39.3 - Stress incontinence (female) (male) Category: Medical Plan In office urinalysis results reviewed with the patient today; as noted above; will send for urine cytology. PVR 0 mL All questions were answered. Continue oxybutynin; refill provided. She reports be happy with current voiding parameters. She denies any bothersome urinary issues or concerns. We will continue with surveillance monitoring. Follow-up in 1 year with PVR; or sooner with any issues, concerns, and or questions. Orders: Orders AMB Urinalysis Automated Today Z13.9 - Encounter for screening, unspecified Urine Cytology Today R31.29 - Other microscopic hematuria Medications: Refilled oxybutynin chloride ER 5 mg PO DAILY 90 tabs 3RF 90 days N31.9 - Neuromuscular dysfunction of bladder, unspecified, R39.15 - Urgency of urination Patient Instructions: The patient had an opportunity to ask questions regarding the treatment plan. All questions were answered. Physical exam, labs, and imaging were discussed and reviewed in detail. As well as risks, benefits, and discussion of treatment choices. No major barriers to understanding were identified. The patient expressed understanding and agreement with the above treatment plan. The patient was made aware they should contact our office by phone for worsening of their current condition, the appearance of new symptoms, or with any questions or concerns. Compliance is encouraged with any medications and follow up testing that is ordered. It is a privilege to be allowed the opportunity to participate in? your urological care.? Again, if you have any questions or concerns If you have any questions or concerns please do not hesitate to contact me. The office is [phone]. This note is constructed using voice recognition software. While every effort has been made to ensure accuracy care attendant errors may have been included. Yours sincerely, MARY Kulkarni Coding Level of Care Code Est Pt Level 3 (39071) Complex EM visit Add On G2211 Diagnoses Urinary urgency R39.15 Stress incontinence N39.3 CPT Codes Post Residual Void - PVR CPT Code: 02925-Pnhn Void Residual by ultrasound ([id number])
--- OUTSIDE RECORDS SUMMARY | 2025-09-18 12:23 | XMS_ITS | Encounter Summary ---
Author Organization [facility] Address [address] [place] [address] Care Team Providers Care Certified Endoscopy Technician Name Role Phone Griffin Fu MD Primary Care Provider [phone] Encounter Details Date Type Department Care Team (Late st Contact Info) Description 12/03/2024 Lab Requisition [facility] - Main Lab [address] [place] [address] Griffin Fu MD [address] [place] [address] [address], [phone] Vitamin D deficiency, unspecified; Essential (primary) hypertension; Type 2 diabetes mellitus without complications (CMS/HCC V24, [facility]/HCC V28) Social History Tobacco Use Types Packs/Day Years [...] LAB CHEMISTRY METHOD 12/04/2024 12:27 PM EST [facility] Mean Bld Glu Estim. 108 mg/dL LAB CHEMISTRY METHOD 12/04/2024 12:27 PM EST [facility] Blood Venous blood specimen / Unknown Venipuncture / Unknown 12/04/2024 5:23 AM EST 12/04/2024 9:19 AM EST us Griffin Fu MD LAB BLOOD ORDERABLES Final Resul t [facility] [address] [place] [address], * Vitamin D 25 hydroxy (12/04/2024 5:23 AM EST) Vit D, 25-Hydroxy 50.1 30.0 - 80.0 ng/mL LAB CHEMISTRY METHOD 12/04/2024 10:21 AM EST [facility] Blood Venous blood specimen / Unknown Venipuncture / Unknown 12/04/2024 5:23 AM EST 12/04/2024 9:19 AM EST us Griffin Fu MD LAB BLOOD ORDERABLES Final Resul t [facility] [address] [place] [address], [place] [phone] * (ABNORMAL) Lipid panel with reflex to direct LDL (12/04/2024 5:23 AM EST) Cholesterol 113 0 - 200 mg/dL LAB CHEMISTRY METHOD 12/04/2024 10:16 AM [facility] Triglycerides 69 0 - 150 mg/dL LAB CHEMISTRY METHOD 12/04/2024 10:16 AM [facility] HDL 32(L) >=40 mg/dL LAB CHEMISTRY METHOD 12/04/2024 10:16 AM [facility] LDL Calculated 67 0 - 100 mg/dL LAB CHEMISTRY METHOD 12/04/2024 10:16 AM [facility] VLDL Cholesterol Clive 13.8 mg/dL LAB CHEMISTRY METHOD 12/04/2024 10:16 AM [facility] Non HDL Chol. (LDL+VLDL) 81 <145 mg/dL LAB CHEMISTRY METHOD 12/04/2024 10:16 AM [facility] Chol/HDL Ratio 3.5 0.0 - 4.4 LAB CHEMISTRY METHOD 12/04/2024 10:16 AM [facility] Blood Venous blood specimen / Unknown Venipuncture / Unknown 12/04/2024 5:23 AM EST 12/04/2024 9:19 AM EST us Griffin Fu MD LAB BLOOD ORDERABLES Final Resul t [facility] [address] [place] [address], [place] [phone] * (ABNORMAL) Comprehensive metabolic panel (12/04/2024 5:23 AM EST) Sodium 142 133 - 145 mmol/L LAB CHEMISTRY METHOD 12/04/2024 10:16 AM EST [facility] Potassium 4.4 3.5 - 5.5 mmol/L LAB CHEMISTRY METHOD 12/04/2024 10:16 AM EST [facility] Chloride 109 96 - 110 mmol/L LAB CHEMISTRY METHOD 12/04/2024 10:16 AM [facility] CO2 28 21 - 32 mmol/L LAB CHEMISTRY METHOD 12/04/2024 10:16 AM [facility] Anion Gap 5 3 - 11 LAB CHEMISTRY METHOD 12/04/2024 10:16 AM [facility] Glucose 82 70 - 100 mg/dL LAB CHEMISTRY METHOD 12/04/2024 10:16 AM [facility] BUN 25 5 - 25 mg/dL LAB CHEMISTRY METHOD 12/04/2024 10:16 AM [facility] Creatinine 0.66 0.50 - 1.10 mg/dL LAB CHEMISTRY METHOD 12/04/2024 10:16 AM [facility] eGFR 105 >=60 mL/min/1. 73m2 LAB CHEMISTRY METHOD 12/04/2024 10:16 AM [facility] Comment:Calculation based on the Chronic Kidney Disease Epidemiology Collaboration (CKD-EPI) equation refit without adjustment for race. BUN/Creatinine Ratio 37.9 LAB CHEMISTRY METHOD 12/04/2024 10:16 AM EST [facility] Calcium 8.6 8.5 - 10.5 mg/dL LAB CHEMISTRY METHOD 12/04/2024 10:16 AM [facility] AST (SGOT) 15 10 - 42 unit/L LAB CHEMISTRY METHOD 12/04/2024 10:16 AM [facility] ALT (SGPT) 18 10 - 60 unit/L LAB CHEMISTRY METHOD 12/04/2024 10:16 AM [facility] Alkaline Phosphatase 99 42 - 121 unit/L LAB CHEMISTRY METHOD 12/04/2024 10:16 AM [facility] Total Protein 6.5 6.0 - 8.0 g/dL LAB CHEMISTRY METHOD 12/04/2024 10:16 AM [facility] Albumin 3.0(L) 3.2 - 5.0 g/dL LAB CHEMISTRY METHOD 12/04/2024 10:16 AM [facility] Total Bilirubin 0.5 0.0 - 1.4 mg/dL LAB CHEMISTRY METHOD 12/04/2024 10:16 AM [facility] Blood Venous blood specimen / Unknown Venipuncture / Unknown 12/04/2024 5:23 AM EST 12/04/2024 9:19 AM EST us Griffin Fu MD LAB BLOOD ORDERABLES Final Resul t [facility] [address] [place] [address], [place] [phone] * (ABNORMAL) Complete blood count (12/04/2024 5:23 AM EST) WBC 7.4 4.8 - 10.8 K/mcL LAB HEMETOLOGY METHOD 12/04/2024 9:51 AM [facility] RBC 4.80 3.80 - 4.80 M/mcL LAB HEMETOLOGY METHOD 12/04/2024 9:51 AM [facility] Hemoglobin 11.8 11.5 - 16.0 g/dL LAB HEMETOLOGY METHOD 12/04/2024 9:51 AM [facility] Hematocrit 40.0 35.0 - 47.0 % LAB HEMETOLOGY METHOD 12/04/2024 9:51 AM EST [facility] MCV 83.2 79.0 - 98.0 FL LAB HEMETOLOGY METHOD 12/04/2024 9:51 AM EST [facility] MCH 24.5(L) 27.0 - 32.0 pcg LAB HEMETOLOGY METHOD 12/04/2024 9:51 AM [facility] MCHC 29.5(L) 32.0 - 37.0 g/dL LAB HEMETOLOGY METHOD 12/04/2024 9:51 AM EST [facility] RDW 16.2(H) 11.0 - 15.0 % LAB HEMETOLOGY METHOD 12/04/2024 9:51 AM EST [facility] Platelets 347 130 - 400 K/mcL LAB HEMETOLOGY METHOD 12/04/2024 9:51 AM [facility] MPV 9.8 7.0 - 11.0 FL LAB HEMETOLOGY METHOD 12/04/2024 9:51 AM EST [facility] NRBC 0.0 <1.0 % LAB HEMETOLOGY METHOD 12/04/2024 9:51 AM [facility] NRBC Absolute 0.00 <0.10 K/mcL LAB HEMETOLOGY METHOD 12/04/2024 9:51 AM [facility] Blood Venous blood specimen / Unknown Venipuncture / Unknown 12/04/2024 5:23 AM EST 12/04/2024 9:19 AM EST us Griffin Fu MD LAB BLOOD ORDERABLES Final Resul t [facility] [address] [place] [address], documented in this encounter Visit Diagnoses Diagnosis Vitamin D deficiency, unspecified Essential (primary) hypertension Unspecified essential hypertension Type 2 diabetes mellitus without complications (CMS/HCC V24, CMS/HCC V28) documented in this encounter Care Teams Certified Endoscopy Technician Relationship Specialty Start Date End Date Griffin Fu MD [address], [address] PCP - General 07/09/24 documented as of this encounter
--- OUTSIDE RECORDS SUMMARY | 2025-09-18 12:23 | XMS_ITS | Clinical Summary ---
Author Organization [address] [facility] Address [address] [place] [address] Phone Care Team Providers Care Plan Consultant Name Role Phone Griffin Fu MD Primary Care Provider [phone] Allergies Active Allergy Reactions Criticality Noted Date [...] to other mental disorder 01/08/2020 Morbid obesity ([facility] V24, [facility] V28) 2019 Seasonal allergies 01/08/2020 Absolute anemia 06/08/2015 Anxiety 06/03/2015 Depression 06/03/2015 Hyperpiesia 06/03/2015 Incontinence in female 06/03/2015 Surgical History Surgery Date Site/Laterality Comments LAPAROSCOPIC GASTRIC BANDING PROCEDURE: LAP ADJUSTABLE GASTRIC BAND; COMMENT: 2007 BLADDER SURGERY PROCEDURE: HISTORICAL BLADDER SURGERY; COMMENT: 11/21 [facility] Medical History Medical History Date Comments Hypertension DX:Hypertension Depression DX:Depression; C OMMENT: counselor, awaiting psychiatrist- [facility] Anxiety DX:Anxiety Insomnia DX:Insomnia Asthma DX:Asthma Seasonal [...] Last Done Comments Breast Cancer Screening 1971 Colorectal Cancer Screening: Colonoscopy 1971 Hepatitis B Vaccines (1 of 3 - 19+ 3-dose series) 1990 Pneumococcal Vaccine: 50+ Years (1 of 2 - PCV) 1990 Cervical Cancer Screening: P ap Smear 02/13/1992 DTaP,Tdap,and Td Vaccines (2 - Td or Tdap) 09/21/2017 09/21/2007 RSV Immunization Adult Patients (1 - Risk 50-74 years 1-dose series) 2021 Zoster Vaccines (1 of 2) 2021 Medicare Annual Wellness Visit 10/23/2022 Social Influencers of Health Screening 10/23/2022 Depression Screening 11/20/2024 COVID-19 Vaccine (1 - 2023-2 5 season) 2025 Influenza Vaccine (#1) 2025 Hypertension/CHF/CAD Annual BMP Blood Test 12/04/2025 12/04/2024, [...] patient's age to complete this topic Meningococcal B Vaccine Aged Out No l onger eligible based on patient's age to complete this topic RSV Immunization Patients Under 20 months Aged Out No longer eligible b ased on patient's age to complete this topic Varicella Vaccines Aged Out No longer eligible based on patient's age to complete this topic Procedures Procedure Name Priority Date/Time Associated Diagnosis Comments COMPREHENSIVE METABOLIC PANEL Routine 12/04/2024 5:23 AM [...] mg/dL LAB CHEMISTRY METHOD 12/04/2024 10:16 AM [facility] Triglycerides 69 0 - 150 mg/dL LAB CHEMISTRY METHOD 12/04/2024 10:16 AM [facility] HDL 32(L) >=40 mg/dL LAB CHEMISTRY METHOD 12/04/2024 10:16 AM [facility] LDL Calculated 67 0 - 100 mg/dL LAB CHEMISTRY METHOD 12/04/2024 10:16 AM [facility] VLDL Cholesterol Clive 13.8 mg/dL LAB CHEMISTRY METHOD 12/04/2024 10:16 AM [facility] Non HDL Chol. (LDL+VLDL) 81 <145 mg/dL LAB CHEMISTRY METHOD 12/04/2024 10:16 AM [facility] Chol/HDL Ratio 3.5 0.0 - 4.4 LAB CHEMISTRY METHOD 12/04/2024 10:16 AM [facility] Blood Venous blood specimen / Unknown Venipuncture / Unknown 12/04/2024 5:23 AM EST 12/04/2024 9:19 AM EST us Griffin Fu MD LAB BLOOD ORDERABLES Final Resul t [facility] [address] [place] [address], [place] [phone] * (ABNORMAL) Comprehensive metabolic panel (12/04/2024 5:23 AM EST) Sodium 142 133 - 145 mmol/L LAB CHEMISTRY METHOD 12/04/2024 10:16 AM [facility] Potassium 4.4 3.5 - 5.5 mmol/L LAB CHEMISTRY METHOD 12/04/2024 10:16 AM [facility] Chloride 109 96 - 110 mmol/L LAB CHEMISTRY METHOD 12/04/2024 10:16 AM [facility] CO2 28 21 - 32 mmol/L LAB CHEMISTRY METHOD 12/04/2024 10:16 AM [facility] Anion Gap 5 3 - 11 LAB CHEMISTRY METHOD 12/04/2024 10:16 AM [facility] Glucose 82 70 - 100 mg/dL LAB CHEMISTRY METHOD 12/04/2024 10:16 AM [facility] BUN 25 5 - 25 mg/dL LAB CHEMISTRY METHOD 12/04/2024 10:16 AM [facility] Creatinine 0.66 0.50 - 1.10 mg/dL LAB CHEMISTRY METHOD 12/04/2024 10:16 AM [facility] eGFR 105 >=60 mL/min/1. 73m2 LAB CHEMISTRY METHOD 12/04/2024 10:16 AM [facility] Comment:Calculation based on the Chronic Kidney Disease Epidemiology Collaboration (CKD-EPI) equation refit without adjustment for race. BUN/Creatinine Ratio 37.9 LAB CHEMISTRY METHOD 12/04/2024 10:16 AM [facility] Calcium 8.6 8.5 - 10.5 mg/dL LAB CHEMISTRY METHOD 12/04/2024 10:16 AM [facility] AST (SGOT) 15 10 - 42 unit/L LAB CHEMISTRY METHOD 12/04/2024 10:16 AM [facility] ALT (SGPT) 18 10 - 60 unit/L LAB CHEMISTRY METHOD 12/04/2024 10:16 AM [facility] Alkaline Phosphatase 99 42 - 121 unit/L LAB CHEMISTRY METHOD 12/04/2024 10:16 AM [facility] Total Protein 6.5 6.0 - 8.0 g/dL LAB CHEMISTRY METHOD 12/04/2024 10:16 AM [facility] Albumin 3.0(L) 3.2 - 5.0 g/dL LAB CHEMISTRY METHOD 12/04/2024 10:16 AM [facility] Total Bilirubin 0.5 0.0 - 1.4 mg/dL LAB CHEMISTRY METHOD 12/04/2024 10:16 AM [facility] Blood Venous blood specimen / Unknown Venipuncture / Unknown 12/04/2024 5:23 AM EST 12/04/2024 9:19 AM EST us Griffin Fu MD LAB BLOOD ORDERABLES Final Resul t [facility] [address] [place] [address], * HIV Screening (06/03/2015) HIV Screening abstracted Historical Provider HEALTH MAINTENANCE Final Result * Hepatitis C Screening (06/03/2015) Hepatitis C Screening abstracted Historical Provider HEALTH MAINTENANCE Final Result from Last 3 Months or Most Recently Relevant to Health Maintenance Insurance MEDICARE [place]ICAID - [place] Advance Directives Documents on File Type Date Recorded 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 [place], [phone] PCP - General 07/09/24
--- OUTSIDE RECORDS SUMMARY | 2025-09-18 12:23 | XMS_ITS | Data Portability ---
Author Organization [facility] [employer] [facility], Main Office Address [address] , [address] [place] [address] Care Team Providers Care Chief Scientific Officer Name Role Phone DAY JUSTIN () OTHER DORI MCGOWAN OTHER [facility] OTHER SHE CURRY OTHER Assessment Encounter Date Assessment Date Assessment LastModified by Organization Details LastModified Time 12/18/2024 12/18/2024 1.5 hrs spent on review of chart, pt. exam, note, scripts, consultation with SS and nsg. [email or web address] Not available 12/18/2024 12:00:38 Plan of Treatment Reminders Order Date Submit Date Provider Last Modified By Organization Details Last Modified Time Details Appointments None record ed. Lab None record ed. Referral None record ed. Procedures None record ed. Surgeries None record ed. Imaging None record ed. Medication Orders None record ed. Patient TargetsNo targets recorded. Patient Instructions Encounter Date Encounter Id Patient Instructions Last Modified By Organization Details Last Modified Time 07/25/2024 [id number] carpal tunnel syndrome: care instructions [email or web address] Not available 07/25/2024 11:38:57 carpal tunnel syndrome: exercises [email or web address] Not available 07/25/2024 11:38:57 Reason for Referral None Reported. Problems Name Problem SNOMED Code Status Onset Date Resolution Date Notes Provider Name and Address Organization Details Recorded Time Type 2 diabetes mellitus with peripheral angiopathy 559369578 Active 2022 TEO COLLINS PA-C [address], [place], [address] , [facility] [employer] 3 20:56:00 Essential hypertensio n 86996019 Active 2022 TEO COLLINS, PA-C [address], [address], [place], [address], [facility] 3 20:56:08 Osteoarthri tis of knee 294126499 Active 2022 SOCO WING-C [address], [address], [place], [address], [place] [facility] 3 20:56:19 Morbid obesity 511275131 Active 2022 s/p lab band 2005 SOCO WING-C [address], [address], [place], [address], [facility] 3 20:56:41 Urinary bladder pain 57763653 Active 2022 SOCO WING-C [address], [address], [place], [address], [facility] 3 20:57:04 Recurrent urinary tract infection 244620062 Active 2022 SOCO WING-C [address], [address], [place], [address], [facility] 3 20:57:19 Allergic asthma 333115343 Active 2022 SOCO WING-C [address], [address], [place], [address], [facility] 3 20:57:30 Allergic rhinitis 70591817 Active 2022 SOCO WING-C [address], [address], [place], [address], [facility] 3 20:58:01 Adult failure to thrive syndrome 375773359 Active 2022 SOCO WING-C [address], [place], [address], [email or web address] 3 20:58:13 Depressive disorder 14804860 Active 2022 SOCO WING-C [address], [place], [address], [email or web address] 3 20:58:24 Obstructive sleep apnea syndrome 67993683 Active 2022 SOCO WING-C [address], [address], [place], [address], [place] [facility] 3 20:58:35 Chronic back pain 058485965 Active 2022 SOCO WING-C [address], [address], [place], [address], [place] [facility] 3 21:00:21 Retention of urine 519604488 Active 2022 SOCO WING-C [address], [place], [address], [place] [facility] 3 21:00:33 Chronic anemia 072161324 Active 2022 SOCO WING-C [address], [place], [address], [place] [facility] 3 21:05:13 Lymphedema 903915829 Active 2022 SOCO WING-C [address], [place], [address], [place] [facility] 3 21:05:25 Borderline personality disorder 58178675 Active 2022 SOCO WING-C [address], [address], [place], [address], [place] [facility] 3 21:05:43 Chronic anxiety 161207872 Active 2022 SOCO WING-C [address], [place], [address], [place] [facility] 3 21:05:51 Chronic pain syndrome 359724851 Active 2022 SOCO WING-C [address], [place], [address], [facility] 3 21:06:02 Urinary incontinenc e 030232404 Active 2022 SOCO WING-C [address], [place], [address], [place] [facility] 3 21:06:18 Antisocial personality disorder 58834500 Active 2022 TEO COLLINS PA-C [address], [place], [address], [facility] 3 21:06:33 Chronic insomnia 848959279 Active 2022 EUGENIO BEAVERS NP [address], [address], [place], [address], [facility] 3 08:42:52 Vaginal dryness 39746225 Active 2022 Emmy Schmidt NP [address], [address], [place], [address], [facility] 3 09:40:39 Gastroesoph ageal reflux disease 335188342 Active 2022 Emmy Schmidt NP [address], [address], [place], [address], [facility] [employer] 3 09:41:00 Chronic constipatio n 966863773 Active 2022 Emmy Schmidt NP [address], [address], [place], [address], [facility] 3 09:41:18 SARS-CoV-2 Active 202207/12/23, paxlovid x 5 d EUGENIO BEAVERS NP [address], [address], [place], [address], [facility] 3 09:43:03 Dyslipidemi a 092861021 Active 2022 EUGENIO BEAVERS NP [address], [address], [place], [address], [facility] 3 08:08:37 Anemia 090867042 Active 2022 EUGENIO BEAVERS NP [address], [address], [place], [address], [facility] 3 08:08:51 Vitamin D deficiency 32239457 Active 2022 EUGENIO BEAVERS NP [address], [address], [place], [address], [facility] [employer] [facility] 3 08:09:06 Asthma 968205983 Active 2023 EUGENIO BEAVERS NP [address], [facility] [address], [place], [address], [facility] 4 08:46:32 Carpal tunnel syndrome 36366406 Active 2023 EUGENIO BEAVERS NP [address], [address], [place], [address], [facility] 4 18:55:25 Gastroesoph ageal reflux disease without esophagitis 063420643 Active 2023 Sima Lu MD [address], [facility] [address], [place], [address], [facility] [employer] [facility] 4 20:40:35 Problem Notes None recorded. Medical Equipment None Reported. Allergies Allergen ID Allergen Name Allergen Category Reaction Reaction Severity Criticality Documentation Date Start Date Code Code System Note Provider Name and Address Organization Details Recorded Time 32155 morphine medicatio n itching Not available Not available 12/19/2022 7052 RxNorm CAN TAKE DILAU DID TEO COLLINS PA-C [address], [facility] [address], [place], [address], [facility] [employer] [facility] 3 19:22:05 37865 oxycodone medicatio n itching Not available Not available 12/19/2022 7804 RxNorm CAN TAKE DILAU DID TEO COLLINS PA-C [address], [facility] [address], [place], [address], [facility] [employer] [facility] 3 19:22:12 Medications Name Sig Start Date Stop Date Status Note LastModified by Organization Details LastModified Time Dilaudid 2 mg tablet 1mg (1/2 tab) po daily 024 active Not Available Not Available Not Avai lable Ambien 5 mg tablet 1 po qhs prn insomnia 023 active Not Available Not Available Not Avai lable Ambien 10 mg tablet Take 1 tablet every day by oral route. 024 active Not Available Not Available Not Avai lable Dilaudid 1 mg/mL oral liquid Take 2 mL 3 times a day by oral route. 024 active Not Available Not Available Not Avai lable Vitals Date Recorded Body height Heart rate Respiratory rate Body temperature Oxygen saturation Oxygen saturation in Arterial blood by Pulse oximetry Systolic And Diastolic Provider Name and Address Organization Details Last Updated DateTime 5 165.1 cm 70 /min 18 /min 97.2 [degF] 94 % 94 % 121/65 mm[Hg] EUGENIO BEAVERS NP [address], [facility] [address], [place], [address], [email or web address] 5 10:18:05 Date Recorded Body height Heart rate Respiratory rate Body temperature Oxygen saturation Oxygen saturation in Arterial blood by Pulse oximetry Systolic And Diastolic Provider Name and Address Organization Details Last Updated DateTime 4 165.1 cm 67 /min 19 /min 97.3 [degF] 93 % 93 % 120/77 mm[Hg] EUGENIO BEAVERS NP [address] [facility] [address], [place], [address], [email or web address] 4 11:01:19 Date Recorded Body height Heart rate Respiratory rate Body temperature Oxygen saturation Oxygen saturation in Arterial blood by Pulse oximetry Systolic And Diastolic Provider Name and Address Organization Details Last Updated DateTime 4 165.1 cm 76 /min 18 /min 97.4 [degF] 95 % 95 % 136/72 mm[Hg] EUGENIO BEAVERS NP [address], [facility] [address], [place], [address], [email or web address] 4 09:09:28 Date Recorded Body height Heart rate Respiratory rate Body temperature Oxygen saturation Oxygen saturation in Arterial blood by Pulse oximetry Systolic And Diastolic Provider Name and Address Organization Details Last Updated DateTime 4 165.1 cm 79 /min 18 /min 98.1 [degF] 97 % 97 % 127/82 mm[Hg] EUGENIO BEAVERS NP [address], [facility] [address], [place], [address], [email or web address] 4 10:39:39 Social History Question Answer Notes LastModified by Organization Details LastModified Time Tobacco Smoking Status Former Smoker only smoked on very rare occasions - < 100 cigarettes over lifetime TEO COLLINS PA-C [address], [address], [place], [address], [employer] [facility] [employer] [facility] 12/19/2022 19:28:50 Do You Have An Advance Directive? Yes Full Code; All Interventions [email or web address] Information not available 12/19/2022 What Is Your Code Status? Full Code [email or web address] Information not available 12/19/2022 Where Do You Live? [facility] Information not available 05/30/2024 Legal Guardian? No [email or web address] Information not available 12/19/2022 Do You Have A Medical Power Of Mobile Home Technician? Yes Information not available 05/30/2024 What Was The Date Of Your Most Recent Tobacco Screening? 12/19/2022 [email or web address] Information not available 12/19/2022 Do You Have An Out Of Hospital DNR? No [email or web address] Information not available 12/19/2022 Have You Ever Been Counseled For Unhealthy Alcohol Use? No [email or web address] Information not available 12/19/2022 How Much Tobacco Do You Smoke? No Information not available 05/30/2024 Has Tobacco Cessation Counseling Been Provided? No N/A As Pt No Longer Smokes Information not available 05/30/2024 Sex: Unknown Functional Status Question Answer Note LastModified by Organizat ion Details LastModified Time How many times per week do you consume alcohol? Less than 1 time per week [email or web address] Information not available 12/19/2022 Do you use any illicit or recreational drugs? No Information not available 12/19/2022 Do you or have you ever used any other forms of tobacco or nicotine? No [email or web address] Information not available 12/19/2022 What is your level of alcohol consumption? Occasional [email or web address] Information not available 12/19/2022 Mental Status None recorded. Family History Nothing Reported. Medical History No medical history recorded. Gynecological HistoryNo gynecological history recorded. Obstetrics History GPAL:G 0 P 0 0 0 0 Immunizations Vaccine Type Date Status Note Provider Nam e and Address Organization Details Recorded Time Pneumococcal conjugate PCV20, polysaccharide [id number] conjugate, adjuvant, PF 2 completed TEO COLLISN PA-C [address], [place], [address], [facility] 12/19/2022 21:53:37 COVID-19, mRNA, LNP-S, bivalent, PF, 30 mcg/0.3 mL dose 2 completed TEO COLLINS PA-C [address], [address], [place], [address], [facility] 12/19/2022 21:54:20 COVID-19, mRNA, LNP-S, PF, 30 mcg/0.3 mL dose 2 completed TEO COLLINS PA-C [address], [address], [place], [address], [facility] 12/19/2022 21:54:42 COVID-19, mRNA, LNP-S, PF, 30 mcg/0.3 mL dose 1 completed TEO COLLINS PA-C [address], [address], [place], [address], [facility] 12/19/2022 21:55:07 COVID-19, mRNA, LNP-S, PF, lorna-sucrose, 30 mcg/0.3 mL 3 [facility] 01/29/2024 11:00:08 Past Encounters Encounter ID Performer Location Encounter Start Date Encounter Closed Date Diagnosis/Indication Diagnosis SNOMED-CT Code Diagnosis ICD10 Code Diagnosis IMO Codes Diagnosis Note [id number] TEO COLLINS PA-C [address] [place] [address] [place] [address] 12/19/2022 11:56:54 12/22/2022 15:15:36 Type 2 diabetes mellitus with peripheral angiopathy 582717807 E11.51 Fingerstic k blood sugarsUpda te A1cNot on ELIN/ARB for renal protection Retention of urine 13007 4002 R33.9 Check PVR x 3 Recurrent urinary tract infection 016716326 N39.0 Some U/As demonstrat e colonizati on rather than infectionH as plan for pelvic MRI, which will help define anatomyPot ential retention increases risk Osteoarthr itis of knee 262424967 M17.9 on scheduled APAPDelete Percocet as allergy and replace with oxycodone as pt can take APAPPlans for TKA once loses more weightFoll ows with pain management at [facility] for injections PT/OT prn Morbid obesity 688143112 E66.01 s/p lap bandfollow ed with bariatric surgeon Allergic asthma 46269623 6 J45.909 Has prn Albuterol nebDoes not appear to be on a controllin g agentFollo w clinically Allergic rhinitis 270526 04 J30.9 Change Claritin to Zyrtec 10 mg po qhsConside r referral to allergy and immunology for skin testing Urinary bladder pain 158 85727 R39.82 Has plans for pelvic MRI and cystoscopy Symptoms are intermitte nt and not improved with voiding so interstiti al cystitis less likelyMay be bladder spasms-con money position officer prn oxybutynin Chronic pain syndrome 37 1327589 G89.4 prn DilaudidSc heduled APAPPT/OT prn Chronic back pain 941270 002 M54.42 prn DilaudidSc heduled APAPPT/OT prnWt loss would also improve symptoms Chronic anemia 962863818 D64.9 Normal H&H on most recent labs Essential hypertension 98848640 I10 Monitor BPs and adjust meds prnNeeds monthly BP and HR Lymphedema 534274072 I89 .0 ChronicSho uld improve with wt loss Obstructiv e sleep apnea syndrome 74502682 G47.33 Has previously declined sleep study-clar gibson with [employer] if can be done in-house Urinary incontinence 165 776042 R32 Reportedly since and bladder surgeryMRI pelvis pendCystos copy pend Depressive disorder 3548 9007 F32.A CymbaltaDe nies SI/HI/AH/V HPsych following Chronic anxiety 60216573 9 F41.9 CymbaltaBu sparPsych following Borderline personality disorder 43698169 F60.3 Needs consistent approach by staff Antisocial personality disorder 19948366 F60.2 psych following Adult fail ure to thrive syndrome 984940911 R62.7 now in SNF Advance care planning 71 8380149 Z71.89 Full code; all interventi ons-fix order in computer that reflects no dialysis since pt's MOLST reflects all interventi ons, including dialysis [id number] TEO COLLINS PA-C [address] [address] [place] [address] 12/30/2022 22:00:20 01/27/2023 09:38:31 Type 2 diabetes mellitus with peripheral angiopathy 582383200 E11.51 Excellent A1c at 5.4-could consider moving diagnosis to historical vs trial off restricted diet although weigh loss is recommende d for this patientFin gerstick blood sugar bid q month for completene ssNot on ELIN/ARB for renal protection -consider adding Vitamin D deficiency 347 09708 E55.9 Add Vit D3 50k ux po q week x 8 weeks then q month Cobalamin deficiency 190 279768 E53.8 Borderline Consider repletingM ay also be contributi ng to any underlying neuropathy [id number] TEO COLLINS PA-C [address] [place] [address] [place] [address] 01/18/2023 09:49:12 02/23/2023 11:09:01 Urinary bladder pain 13826863 R39.82 trial oxybutynin IR 5 mg po tid prn pain/spasm swaiting on imaging to be scheduled Chronic pain syndrome 37 2729861 G89.4 [id number] TEO COLLINS PA-C [address] [address] [place] [address] 02/13/2023 21:08:01 02/24/2023 12:00:19 Urinary bladder pain 57565523 R39.82 APAP 500 mg po q 4 h prn pain/fever -not to be given within 4 hours of scheduled dose-NTE 4 g/24 h total APAPNo ibuprofen since already on celecoxibU /A with reflex to cx r/o UTI-may straight cath if needed-f/u when resulted [id number] EUGENIO BEAVERS NP [address] [place] [address] 03/20/2023 08:04:51 03/22/2023 09:11:15 Chronic insomnia 344762915 F51.04 On multiple meds - continue.P sych following as well.After discussion with Rahel, she thinks she is starting to sleep better and doesn't want to make any changes at this time. 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 Cellulitis of left thigh 1746618801 1228995 L03.116 MildKeflex 500 mg qid x 5 days plus probiotick eep area clean and dryMonitor [id number] SHANNA LORD [address] [address] [place] [address] 04/12/2023 12:24:57 04/18/2023 15:47:49 Urinary bladder pain 61334407 R39.82 APA prnresched ule pelvic MRI per urology request back in l need transport set upmake f/u with urology after MRI date [id number] EUGENIO BEAVERS NP [address] [place] [address] 04/20/2023 10:55:26 04/24/2023 14:55:16 Methicillin resistant Staphylococcus aureus infection 213671306 A49.02 left thigh, recurrent irruption. wound cx. by Wound MD = MRSA and E. FaecalisSt arted Bactrim DS bid x 10 days, amoxil 500 mg tid x 7 days, and probioticL ocal tx. with alginate and silvadene, DCD dailyConti nue to monitor Recurrent urinary tract infection 339232797 N39.0 Cefpodoxim e stopped, now on Bactrim for above infection. (Final C&S from ER shows E. Coli, pansensiti ve)Needs follow up MRI, once done, refer back to UrologyMon itor EUGENIO BEAVERS NP [address] [address] [place] [address] 04/27/2023 08:29:48 05/01/2023 11:32:52 Methicillin resistant Staphylococcus aureus infection 229345120 A49.02 left thigh, recurrent irruption. wound cx. by Wound MD = MRSA and E. FaecalisCu rrently on Bactrim DS bid x 10 days, amoxil 500 mg tid x 7 days, and probioticL ocal tx. with alginate and silvadene, DCD dailyUS ordered due to concern of abscessCon tinue to monitorApp reciate Wound MD input Recurrent urinary tract infection 798088736 N39.0 Cefpodoxim e stopped, now completing Bactrim (see above)(Fin al C&S from ER shows E. Coli, pansensiti ve)Needs follow up MRI, once done, refer back to Urology Dr. Ortega or Type 2 sirena ayaanes mellitus with peripheral angiopathy 210123919 E11.51 Diet controlled A1C 5.4%Not on ELIN/ARB for renal protection at this time Morbid obesity 310248487 E66.01 s/p lap bandfollow ed with bariatric surgeon Allergic asthma 62475918 6 J45.909 Does not appear to be on a controllin g agentFollo wing clinically Allergic rhinitis 009693 04 J30.9 On Zyrtec 10 mg po qhsConside r referral to allergy and immunology for skin testing if remains problemati c Urinary bladder pain 158 88132 R39.82 Has plans for pelvic MRI and follow up with Dr. Mcgrath oms are intermitte nt and not improved with voiding so interstiti al cystitis less likelyCont inue oxybutynin 5 mg q 8 hrs prn spasms Chronic pain syndrome 37 4727819 G89.4 Including back and kneeContin ue:APAP 1 gm tidCymbalt a 30 mg dailyBaclo fen 10 mg tidCelebre x 100 mg bidDilaudi d 2 mg q8 hrsGabapen tin 100 mg tid, and 300 mg q HSPT/OT prn Chronic anemia 189281650 D64.9 Normal H&H on most recent labsMonito ring Essential hypertension 14697317 I10 On Lasix 20 mg dailyMonit or BP, labs, and adjust meds prn Lymphedema 556810553 I89 .0 ChronicSho uld improve with wt loss Obstructiv e sleep apnea syndrome 57595184 G47.33 Has previously declined sleep study Urinary incontinence 165 521215 R32 Reportedly since and bladder surgeryFol lowed by Dr. Mcgowan, UrologyMRI pelvis to be sched. then follow up in office as noted above Depressive disorder 3548 9007 F32.A Continue Cymbalta 30 mg dailyDenie s SI/HI/AH/V HPsych followingM onitoring mood, behaviors Chronic anxiety 70603224 9 F41.9 with insomniaCo ntinu:Cymb ritesh 30 mg dailyBuspa r 5 mg bid, and 10 mg q HSMelatoni n 6 mg q HSAmbien 10 mg q HSPsych followingM onitoring mood, behaviors Borderline personality disorder 15448447 F60.3 Needs consistent approach by staffMeds as aboveTopam ax 100 mg q HSAdjust meds prn Antisocial personality disorder 12926430 F60.2 Meds as abovepsych following Adult fail ure to thrive syndrome 044053346 R62.7 now in SNF, stable Advance care planning 71 0701213 Z71.89 Full code; all interventi ons [id number] Ekaterina Tobias MD [address] [address] [place] [address] 05/05/2023 09:30:36 05/08/2023 13:15:43 Chronic pain 32296120 G89.29 APAP 1000 mg tid and 500 mg daily prntopiram ate 25 mg at hshydromor phone 2 mg [id number] tin 100 mg tid and 300 mg at hsduloxeti ne 30 mg dailybaclo fen 10 mg tidwill monitorPT/ OT prn Essential hypertension 04945360 I10 furosemide 20 mg dailywill monitor Type 2 sirena betes mellitus with peripheral angiopathy 300317907 E11.51 no meds for DM at this timesee meds for chronic pain for neuropathy Mixed anxi ety and depressive disorder 966388443 F41.8 with history of personalit y disorder:b uspirone 5 mg bid and 10 mg at hszolpidem 10 mg at hsduloxeti ne 30 mg dailytopir amate 25 mg at hswill monitorpsy ch prn Overactive urinary bladder 044702219 N32.81 oxybutynin 5 mg q8h prnwill monitor Recurrent urinary tract infection 556150444 N30.20 fu urologypel pepper MRI pendingwil l monitor [id number] Emmy Schmidt NP [address] [address] [place] [address] 05/29/2023 08:28:43 06/05/2023 12:24:31 Chronic pain 46000229 G89.29 APAP 1000 mg tid and 500 mg daily prntopiram ate 25 mg at hshydromor phone 2 mg [id number] tin 100 mg tid and 300 mg at hsduloxeti ne 30 mg dailybaclo fen 10 mg tidwill monitorPT/ OT prn Overactive urinary bladder 697902234 N32.81 oxybutynin 5 mg q8h prnwill monitor Recurrent urinary tract infection 452205486 N30.20 fu urologypel pepper MRI pending04/21 3 urine neg for infection and recently had monistat per pt.will monitor Vaginal dryness 69866176 N89.8 05/29 start estrace vaginal cream 0.01% 4 grams 2x/weekcon money position officer increasing if symptoms of dryness are warranted Gastroesop hageal reflux disease 012495997 K21.9 05/29 has reduced coffee and citric juices and worse since lap band change, sleeps on pillows and worse at night05/29 start famotidine 20 mg po qhsmonitor for resolution Chronic constipation 236 479278 K59.09 05/29 reports hard stools latelystar t colace 200 mg tab po qhsmonitor [id number] EUGENIO BEAVERS NP [address] [place] [address] [address] [place], [place] [address] 06/26/2023 12:42:22 06/28/2023 09:38:48 Chronic pain 67713046 G89.29 On multiple meds:APAP 1000 mg tidtopiram ate 100 mg at hshydromor phone 2 mg [id number] tin 100 mg tid and 300 mg at hsduloxeti ne 30 mg dailybaclo fen 10 mg tidcelebre x 100 mg bid added 03/31contin ue to monitor pain, labs, adjust tx. prnPT/OT prn Essential hypertension 09853305 I10 continue furosemide 20 mg dailymonit or vs, labs Type 2 sirena betes mellitus with peripheral angiopathy 720749967 E11.51 no meds for DM at this timesee meds for chronic pain for neuropathy Mixed anxi ety and depressive disorder 132789870 F41.8 with history of personalit y disorderFo llowed by psych as wellContin ue:buspiro ne 5 mg bid and 10 mg at hszolpidem 10 mg at hsduloxeti ne 30 mg dailytopir amate 100 mg at hsmelatoni n 6 mg q HSmonitor mood and behaviorsp sych eval prn Overactive urinary bladder 528821881 N32.81 oxybutynin 5 mg q8h prnpt. says this works very well for sx. Recurrent urinary tract infection 419537664 N30.20 Dr[address] Mcgowan involvedpe lvic MRI requested prior to visit, will need to check if this was donemonito r sx Allergic rhinitis [id number] 04 J30.9 On Zyrtec 10 mg po qhs, controllin g sx.Conside r referral to allergy and immunology for skin testing if remains problemati c Vaginal dryness 73027034 N89.8 with recent irritation and discomfort Treated with topical antifungal cream (concern for yeast due to recent prolonged abx. use) and now estrace cream 2x wk with improvemen t but not resolution of sx.Agree with pt to refer to [facility], Jazmine McmillanManatee - needs a better, more thorough exam than what can be dome here.Also perimenopa usal and has hx. of labial abcess, unclear if any of these contributi ng to above concerns. Gastroesop hageal reflux disease 099070985 K21.9 Continue prilosec 20 mg daily, currently controllin g sx. Chronic constipation 236 651313 K59.09 started colace 200 mg tab po qhsmonitor and adjust as needed. [id number] EUGENIO BEAVERS NP [address] [place] [address] 07/11/2023 09:23:11 07/13/2023 14:43:56 Overactive urinary bladder 282344191 N32.81 Currently with sx.Using oxybutynin 5 mg q8h prn which is helping some.Plan d/w Rahel, she does not wish to go to the ER at this time, rather would like to check UA C&S here to r/o UTI.Will also request nsg. to reschedule MRI and CT as requested earlier in the year by Dr. Mcgowan.Main tain fluids, monitor VSConsider pyridiumTo ER if acute Recurrent urinary tract infection [id number] N30.20 Sx. as above; checking UA C&S today, treat if positiveGU Dr. Mcgowan involvedMa intain fluids, monitor VSEnc. use of oxybutynin To ER if acute [id number] EUGENIO BEAVERS NP [address] [address] [place] [address] 07/13/2023 09:34:32 07/18/2023 10:45:59 Overactive urinary bladder 615116251 N32.81 Currently with sx.Using oxybutynin 5 mg q8h prn which is helping some.Plan d/w Rahel, she does not wish to go to the ER at this time, rather would like to check UA C&S here to r/o UTI.Will also request nsg. to reschedule MRI and CT as requested earlier in the year by Dr. Mcgowan.Main tain fluids, monitor VSConsider pyridiumTo ER if acute Recurrent urinary tract infection N30.20 UA positive but with high epi count, ? good sample/con tamination , await final C&SGU Dr. Mcgowan involvedMa intain fluids, monitor VSEnc. use of oxybutynin To ER if acute SARS-CoV-2 802924210 U07 .1 Tested pos 8Sympto matic, fever, achy, tired, reduced appetite, reported congestion .Start paxlovid 300/100 mg bid x 5 daysPush fluidsTrea t sx - currently on TID APAP, robitussin prnVS at least dailyMonit or closely, consider labs, CXR, O2, albuterol, IVF if neededTo ER if acute/wors ens [id number] EUGENIO BEAVERS, WENDI [address] [address] 07/18/2023 09:23:08 07/26/2023 14:40:44 SARS-CoV-2 278423687 U07.1 Tested pos 8Sympto matic last week - fever, achy, tired, reduced appetite, reported congestion .Started paxlovid 300/100 mg bid x 5 days, aamir. well.Now feeling much better, tested neg. yesterdayC ontinue to monitor Overactive urinary bladder 433798537 N32.81 Sx. last week, now improving. Using oxybutynin 5 mg q8h prn.UA C&S checked, pos. for UTI, currently on keflex x 7 days.Need to reschedule MRI and CT as requested earlier in the year by Dr. Mcgowan.Sarbjit taigrisel fluids, monitor VSConsider pyridiumTo ER if acute Recurrent urinary tract infection N30.20 UA positive but with high epi count, ? good sample/con tamination , final C&S >100K E. Coli, started keflex 500 mg qid x 7 days plus probiotic. Clinically improved this week, continue to monitorGU Dr. Mcgowan involvedMa intain fluids, monitor VSEnc. use of oxybutynin To ER if acute [id number] EUGENIO BEAVERS NP [address] [address] [address] [place] [address] 07/20/2023 09:41:15 07/26/2023 15:40:49 SARS-CoV-2 910933608 U07.1 Tested pos 07/12Sympto matic -> fever, achy, tired, reduced appetite, reported congestion .Started paxlovid 300/100 mg bid x 5 days, now completed, aamir. well.Leana nues to improve, feeling much better overall.Co ntinue to monitor, expect continued improvemen t/resoluti on Overactive urinary bladder 813487297 N32.81 Sx. last week, now resolved.U sing oxybutynin 5 mg q8h prn.Comple ting tx. for UTI (keflex x 7 days).Need to reschedule MRI and CT as requested earlier in the year by Dr. Mcgowan.Main tain fluids, monitor VS Recurrent urinary tract infection 969683974 N30.20 UA positive but with high epi count, ? good sample/con tamination , final C&S >100K E. Coli, started keflex 500 mg qid x 7 days plus probiotic, last doses tomorrow.C linically improved, continue to monitorGU Dr. Mcgowan involvedMisael intain fluids, monitor VSEnc. use of oxybutynin To ER if acute [id number] EUGENIO BEAVERS NP [address] [place] [address] 07/27/2023 10:26:20 08/02/2023 08:47:23 Methicillin resistant Staphylococcus aureus infection 077511095 A49.02 h/o ulceration left posterior thigh, recurrent irruption, cx. pos. for MRSA and E. FaecalisTx . with Bactrim and Amoxil and bactroban with resolution . Now with 3 ulceration s - B post. thighs and upper right buttock cleft. Plan -Assuming new ulceration s also MRSA relatedPOC d/w pt.does not want po abx. if at all possible, but would consider if areas do not improve or worsenAgre eable to:gentle hibiclens wash daily x 5 days, then 2x wkBactroba n 2% ointment daily to ulceration s, may cover with DCD for protection given location of woundsRefe r to Wound MD for eval and t.Continue to monitor closely [id number] EUGENIO BEAVERS NP [address] [address] [place] [address] 09/12/2023 10:20:46 09/20/2023 15:07:10 Allergic asthma 382013741 J45.909 With increased cough.Star t albuterol updrafts tid x 7 days, and q4 hrs prn x 30 days.Predn isone discussed, would be an option if resp. issues persist/wo rsen.Monit or closely. [id number] Ekaterina Tobias MD [address] [address] [place] [address] 09/15/2023 05:29:18 09/20/2023 15:12:58 Type 2 diabetes mellitus with peripheral angiopathy 281376355 E11.51 no meds for DM at this timesee meds for chronic pain for neuropathy Chronic pain 41628000 G8 9.29 APAP 1000 mg tidAPAP 500 mg prn (not within 4 hours of scheduled dose)topir amate 100 mg at hscelecoxi b 100 mg bidhydromo rphone 2 mg [id number] tin 100 mg tid and 300 mg at hsduloxeti ne 30 mg dailybaclo fen 10 mg tidwill monitorPT/ OT prn Mixed anxi ety and depressive disorder 999410626 F41.8 with history of personalit y disorder:b uspirone 5 mg bid and 10 mg at hszolpidem 10 mg at hsduloxeti ne 30 mg dailytopir amate 100 mg at hswill monitorpsy ch prn Essential hypertension 55901034 I10 furosemide 20 mg dailywill monitor Overactive urinary bladder 863360366 N32.81 oxybutynin 5 mg q8h prnwill monitor Gastroesop hageal reflux disease without esophagitis 527195162 K21.9 omeprazole 20 mg dailywill monito [id number] EUGENIO BEAVERS NP [address] [address] [place] [address] 10/31/2023 08:01:24 11/02/2023 13:48:54 Dyslipidemia 709107748 E78.5 Tx. discussed with Rahel, agreeable to starting statin tx.Add atorvastat in 20 mg po dailyLipid panel and LFTs in 3 months 01/29/24 Anemia 261395266 D64.9 Microcytic CBC, Fe, TIBC, % stat, Ferritin, Retic. Ct. in amHemetest stools x 3 Vitamin D deficiency 347 83400 E55.9 Add Vit D 50,000 units monthlyD level in 3 months 01/29/24 [id number] EUGENIO BEAVERS NP [address] [address] [place] [address] 11/07/2023 11:14:32 11/09/2023 18:53:42 Dyslipidemia 634715244 E78.5 Tx. discussed with Rahel, agreeable to starting statin tx.Added atorvastat in 20 mg po dailyLipid panel and LFTs in 3 months 01/29/24 Anemia 466048712 D64.9 Microcytic CBC, Fe, TIBC, % stat, Ferritin WNRRetic Ct. sl. increased 2.2Hemetes t stools x 3 negativeMo nitor CBC Vitamin D deficiency 347 96915 E55.9 Added Vit D 50,000 units monthlyD level in 3 months 01/29/24 Type 2 sirena betes mellitus with peripheral angiopathy 693328654 E11.51 no meds for DM at this timesee meds for chronic pain for neuropathy Chronic pain 86961201 G8 9.29 No change with POC -APAP 1000 mg tidAPAP 500 mg prn (not within 4 hours of scheduled dose)topir amate 100 mg at hscelecoxi b 100 mg bidhydromo rphone 2 mg [id number] tin 100 mg tid and 300 mg at hsduloxeti ne 30 mg dailybaclo fen 10 mg tidwill monitorPT/ OT prn Mixed anxi ety and depressive disorder 315120414 F41.8 with history of personalit y disorder:b uspirone 5 mg bid and 10 mg at hszolpidem 10 mg at hsduloxeti ne 30 mg dailytopir amate 100 mg at hsmonitor mood, behaviorsp sych eval prn, input appreciate d. Essential hypertension 10894017 I10 VSSContinu e furosemide 20 mg dailymonit or VS, labs Overactive urinary bladder 439039779 N32.81 continue oxybutynin 5 mg q8h prnmonitor sx. Gastroesop hageal reflux disease without esophagitis 901473298 K21.9 continue omeprazole 20 mg dailymonit or GI sx. [id number] EUGENIO BEAVERS NP [address] [address] [place] [address] 11/30/2023 08:13:40 12/04/2023 13:16:10 Asthma 042982283 J45.909 Reports as a chronic issue, x 30 yrs., weather changes tend to be the most common trigger.Re porting cough and wheeze x 3 days.COVID neg., viral panel results pendingPla n - d/w Rahel - in agreement -Start:Antionette o Ellipta 25/100 1 inh qdAlbutero l MDI 2 inh q 4 hr prn and Albuterol nebs q 4 hr prnMonitor Pain in fi nger of left hand 3306677132 92485 M79.645 Mostly L 4th and 5th fingers - pips and dips.X a few daysExam unremarkab leSuspect strain from holding tablet, poss. early OASupport tablet another way (ie pillow or towel) to rest handAPAP prnCheck CBC, Uric Acid, ESR x 1monitorco nsider x rays if remains problemati c [id number] EUGENIO BEAVERS NP [address] [address] [place] [address] 12/19/2023 09:12:48 12/22/2023 10:09:20 Asthma 159613776 J45.909 Started Breo Ellipta 25/100 1 inh qd with improvemen t in resp.Leana nue Albuterol MDI 2 inh q 4 hr prn and Albuterol nebs q 4 hr prnContinu e to monitor resp status Pt. planning on going home next month, and due to multiple medical conditions (morbid obesity, chronic pain, gerd, OA, edema) including asthma and DEL, script for semielectr ic hospital bed provided Pain in fi nger of left hand 0789227558 94683 M79.645 PersistsMo stly L 4th and 5th fingers - pips and dips.Also with weaknessEx am unremarkab leLabs stableWork ing with rehabAPAP prnCheck x ray of left hand and wrist Urinary incontinence 165 521335 R32 Reportedly since and bladder surgeryFol lowed by Dr. Mcgowan, UrologyMRI pelvis to be sched. then follow up in office, but I don't believe this has been done yet.Also with atrophic vaginitis, UTIs, OAB - script provided for briefs for use at home upon discharge as pt. unable to manage incontinen ce otherwise. Lymphedema 242868812 I89 .0 ChronicEle vates legs as much as possible to manage swelling - see above - script provided for semi electric bariatric hospital bed as pt. unable to manage leg elevation safely and independen tly. [id number] EUGENIO BEAVERS NP [address] [place] [address] 01/04/2024 09:11:33 01/08/2024 10:01:18 Asthma 782116350 J45.909 Started Breo Ellipta 1 inh qd with improvemen t in resp. - will continueCo ntinue Albuterol MDI 2 inh q 4 hr prn and Albuterol nebs q 4 hr prnContinu e to monitor resp status Pt. planning on going home next month, and due to multiple medical conditions (morbid obesity, chronic pain, gerd, OA, edema) including asthma and DEL, script for semielectr ic hospital bed provided Pain in fi nger of left hand 1977711072 85503 M79.645 Now extending to most of hand and wrist.Also with weaknessX rays left hand and wrist neg.Exam unremarkab le except for reduced ROM due to painLabs stablePlan -Continue working with rehabConti nue current pain meds.Add prednisone taper - 40 mg qd x 2 d, reduce by 10 mg qod until done.Get wrist/hand splintChec k labs - ESR, CRP, RF, ANARefer to Hand specialist [facility] for eval and tx. Urinary incontinence 165 625152 R32 Reportedly since and bladder surgeryFol lowed by Dr. Mcgowan UrologyMRI pelvis to be sched. then follow up in office, but I don't believe this has been done yet.Contin ue oxybutinin prn for bladder spasms, and estrace cream for AV. Lymphedema 011949772 I89 .0 ChronicEle vates legs as much as possible to manage swelling - see above - script provided for semi electric bariatric hospital bed as pt. unable to manage leg elevation safely and independen tly. Dyslipidemia 810346020 E 78.5 Tx. discussed with Rahel, agreeable to starting statin tx.Added atorvastat in 20 mg po daily in 10/2023Lip id panel and LFTs in 3 months 01/29/24 Anemia 277366059 D64.9 Microcytic CBC, Fe, TIBC, % stat, Ferritin WNRRetic Ct. sl. increased 2.2Hemetes t stools x 3 negativeMo nitoring CBC Vitamin D deficiency 347 51496 E55.9 Added Vit D 50,000 units monthlyD level in 3 months 01/29/24 Type 2 sirena betes mellitus with peripheral angiopathy 085114246 E11.51 no meds for DM at this timesee meds for chronic pain for neuropathy Chronic pain 20035947 G8 9.29 No change with POC -APAP 1000 mg tidAPAP 500 mg prn (not within 4 hours of scheduled dose)topir amate 100 mg at hscelecoxi b 100 mg bidhydromo rphone 2 mg [id number] tin 100 mg tid and 300 mg at hsduloxeti ne 30 mg dailybaclo fen 10 mg tidwill monitorPT/ OT prn Mixed anxi ety and depressive disorder 659894624 F41.8 with history of personalit y disorder:b uspirone 5 mg bid and 10 mg at hszolpidem 10 mg at hsduloxeti ne 30 mg dailytopir amate 100 mg at hsmonitor mood, behaviorsp sych eval prn, input appreciate d. Essential hypertension 90125983 I10 VSSContinu e furosemide 20 mg dailymonit or VS, labs Overactive urinary bladder 485132775 N32.81 continue oxybutynin 5 mg q8h prnmonitor sx. Gastroesop hageal reflux disease without esophagitis 080921873 K21.9 continue omeprazole 20 mg dailymonit or GI sx. [id number] Ekaterina Tobias MD [address] [address] [place] [address] 01/10/2024 09:00:24 01/11/2024 15:39:48 Chronic pain 54051786 G89.29 APAP 1000 mg tidAPAP 500 mg prn (not within 4 hours of scheduled dose)topir amate 100 mg at hscelecoxi b 100 mg bidhydromo rphone 2 mg [id number] tin 100 mg tid and 300 mg at hsLidocain e patch to left wrist dailydulox etine 30 mg dailybaclo fen 10 mg tidprednis one taper - see MARwill monitorPT/ OT prn Mixed anxi ety and depressive disorder 053899419 F41.8 with history of personalit y disorder:b uspirone 5 mg bid and 10 mg at hszolpidem 10 mg at hsduloxeti ne 30 mg dailytopir amate 100 mg at hswill monitorpsy ch prn Essential hypertension 79858464 I10 furosemide 20 mg dailywill monitor Hyperlipidemia 19936613 E78.49 atorvastat in 20 mg dailywill monitor Overactive urinary bladder 353364318 N32.81 oxybutynin 5 mg q8h prnwill monitor Gastroesop hageal reflux disease without esophagitis 516312987 K21.9 omeprazole 20 mg dailywill monito Allergic asthma 65138692 6 J45.20 Breo Ellipta: one inhalation dailywill monitor [id number] EUGENIO BEAVERS NP [address] [address] [place] [address] 01/16/2024 08:46:13 01/18/2024 11:52:24 Chronic pain 77219089 G89.29 Seen today to adjust meds.Plann ing for discharge back into community the end of January.New medical practice will not prescribe narcotics. To facilitate transition back home, Rahel would like to change her pain meds (change dilaudid to something else, or stop and adjust other meds) Current meds used for pain:APAP 1000 mg tidAPAP 500 mg prn (not within 4 hours of scheduled dose)topir amate 100 mg at hscelecoxi b 100 mg bidhydromo rphone 2 mg [id number] tin 100 mg bid and 400 mg at hsLidocain e patch to left wrist dailydulox etine 30 mg dailybaclo fen 10 mg tid Plan - discussed with Rahel -Reduce dilaudid to 1 mg tid - withdrawal sx. reviewed, to be expectedIn crease gabapentin to 200 mg bid, continue 400 mg q HSContinue other meds.Re-ev aluate next week.Can consider increasing cymbalta as wellConsid er ultram, but not sure if PCP office will prescribe this eitherGet appt. with pain clinic for February, to re-establi sh connection in case pt. unable to wean off dilaudid or may possibly need again in the future. Plan discussed with rehab -Scripts needed for durable equipment - necessary for safe transition home - provided todayBaria tric ChairBaria tric front wheeled walkerBari atric Bedside CommodeBar iatric Tub BenchGlove s and disposable chucks [id number] EUGENIO BEAVERS NP [address] [address] [place] [address] 01/23/2024 08:31:42 01/24/2024 16:39:38 Chronic pain 59543482 G89.29 Seen today for follow up and to continue to adjust meds. Planning for discharge back into community the end of January.New medical practice will not prescribe narcotics. To facilitate transition back home, Rahel would like to change her pain meds (change dilaudid to something else, or stop and adjust other meds) So far, she has tolerated dose reduction of dilaudid to 1 mg tid and dose increase in gabapentin to 200 mg bid, and 400 mg q HS. Plan -reduce dilaudid to 1 mg po bid, re-eval next week. If aamir. well with reduce to daily x 7 days then stop.Incre ase duloxetine to 60 mg po qdcontinue :APAP 1000 mg tidAPAP 500 mg prn (not within 4 hours of scheduled dose)topir amate 100 [facility] at [facility] 100 mg bidLidocai ne patch to left wrist dailybaclo fen 10 mg tid Enc. pt. to get an appt. with pain clinic for February, to re-establi sh connection in case pt. unable to wean off dilaudid or may possibly need again in the future. [id number] EUGENIO BEAVERS NP [address] [address] [place] [address] 01/30/2024 08:33:20 02/01/2024 11:48:03 Chronic pain 47004067 G89.29 Seen today for follow up and to continue to adjust meds. Planning for discharge back into community the end of January.New medical practice will not prescribe narcotics. To facilitate transition back home, Rahel would like to change her pain meds (change dilaudid to something else, or stop and adjust other meds) So far, she has tolerated dose reduction of dilaudid to 1 mg bid as well as dose increase in gabapentin and duloxetine . Plan -reduce dilaudid to 1 mg po daily x 7 days, then stop.Leana nue:duloxe leta to 60 mg po qdgabapent in 200 mg bid, and 400 mg q HSAPAP 1000 mg tidAPAP 500 mg prn (not within 4 hours of scheduled dose)topir amate 100 mg at [facility] 100 mg bidLidocai ne patch to left wrist dailybaclo fen 10 mg tid Forms filled out for [facility] transporta tion - due to compromise d mobility, weakness, and activity intoleranc e due to asthma, arthritis, chronic pain, and obesity she requires [facility] handicappe d transporta tion for safe transporta tion in the community. Enc. pt. to get an appt. with pain clinic for February, to re-establi sh connection in case pt. unable to wean off dilaudid or may possibly need again in the future. [id number] EUGENIO BEAVERS NP [address] [address] [place] [address] 02/06/2024 08:43:11 02/08/2024 13:06:27 Chronic pain 36567321 G89.29 Seen today for follow up and to continue to adjust meds. Planning for discharge back into community the end of January.New medical practice will not prescribe narcotics. To facilitate transition back home, Rahel has been tapering off her dilaudid. So far, she has tolerated dose reduction of dilaudid to 1 mg daily as well as dose increase in gabapentin and duloxetine . Plan -Stop dilaudidCo ntinue:dul oxetine to 60 mg po qdgabapent in 200 mg bid, and 400 mg q HSAPAP 1000 mg tidAPAP 500 mg prn (not within 4 hours of scheduled dose)topir amate 100 mg at [facility] 100 mg bidLidocai ne patch to left wrist dailybaclo fen 10 mg tid To see [facility] today for eval of left wrist pain. Forms filled out last week for [facility] transporta tion - due to compromise d mobility, weakness, and activity intoleranc e due to asthma, arthritis, chronic pain, and obesity she requires [employer] handicappe d transporta tion for safe transporta tion in the community. Enc. pt. to get an appt. with pain clinic for February, to re-establi sh connection in case pt. unable to wean off dilaudid or may possibly need again in the future. [id number] EUGENIO BEAVERS NP [address] [address] 02/13/2024 08:55:28 02/15/2024 11:55:50 Low back pain 692730476 M54.50 new onset, has had beforesusp ect muscle strain/spa smPlan -refer to rehab for eval and tx.will allow for extra baclofen use - 10 mg bid prn x 5 days onlyMonito r pain [id number] EUGENIO BEAVERS NP [address] [address] 02/29/2024 10:52:37 02/29/2024 15:33:18 Asthma 544431741 J45.909 Started Breo Ellipta 1 inh qd with improvemen t in resp. - will continueCo ntinue Albuterol MDI 2 inh q 4 hr prn and Albuterol nebs q 4 hr prnContinu e to monitor resp status Pain in fi nger of left hand 4745582193 69250 M79.645 Now extending to most of hand and wrist.Also with weaknessX rays left hand and wrist neg.Exam unremarkab le except for reduced ROM due to painLabs stable Seen by [facility] - dx. carpal tunnel. Given steroid injection, minimal improvemen t, has follow up in March.Using wrist/hand splint for now Urinary incontinence 165 559550 R32 Reportedly since and bladder surgeryFol lowed by Dr. Mcgowan, UrologyMRI pelvis to be sched. then follow up in office, but I don't believe this has been done yet.Contin ue oxybutinin prn for bladder spasms, and estrace cream for AV. Lymphedema 300262247 I89 .0 ChronicEle vates legs as much as possible to manage swelling - see above - script provided for semi electric bariatric hospital bed as pt. unable to manage leg elevation safely and independen tly. Dyslipidemia 099905898 E 78.5 Added atorvastat in 20 mg po daily in 10/2023Lip id panel and LFTs ordered for 01/29/24 - do not appear to have been done, will re-order. Anemia 489823467 D64.9 Microcytic CBC, Fe, TIBC, % stat, Ferritin WNRRetic Ct. sl. increased 2.2Hemetes t stools x 3 negativeMo nitoring CBC - stable Vitamin D deficiency 347 91073 E55.9 Added Vit D 50,000 units monthlyD level 01/29/24 not done, will reorder. Type 2 sirena betes mellitus with peripheral angiopathy 672997970 E11.51 no meds for DM at this timesee meds for chronic pain for neuropathy Chronic pain 11575336 G8 9.29 Tapered off dilaudid in preparatio n for d/c home.Leana nue:APAP 1000 mg tidAPAP 500 mg prn (not within 4 hours of scheduled dose)topir amate 100 mg at [facility] 100 mg bidhydromo rphone 2 mg x2bkpiwiua tin 200 mg tid and 400 mg at hsduloxeti ne 60 mg dailybaclo fen 10 mg tidwill monitorPT/ OT prn BERNAL completed 02/29/24: Moderate fall risk Mixed anxi ety and depressive disorder 784403706 F41.8 with history of personalit y disorder:b uspirone 5 mg bid and 10 mg at hszolpidem 10 mg at hsduloxeti ne 30 mg dailytopir amate 100 mg at hsmonitor mood, behaviorsp sych eval prn, input appreciate d. Essential hypertension 98523450 I10 VSSContinu e furosemide 20 mg dailymonit or VS, labs Overactive urinary bladder 161936412 N32.81 continue oxybutynin 5 mg q8h prnmonitor sx. Gastroesop hageal reflux disease without esophagitis 998680342 K21.9 continue omeprazole 20 mg dailymonit or GI sx. Carpal gideon antolin syndrome 32137838 G56.02 new dx.- see above.Seen by MOLLY - ligia OV notePt. reported injection given without much reliefHas follow up early [facility] [id number] Sima Lu MD [address] [address] [address] [address] 05/30/2024 18:04:28 06/17/2024 09:21:36 Asthma 655835948 J45.40 No resp c/o today.Cont inue Breo Ellipta 25/100 mcg qd, albuterol MDI 2 puffs q 4 hrs prn and albuterol nebs q 4 hrs prnMonitor resp status Urinary incontinence 165 790338 N39.46 Not discussed tonightCon tinue oxybutynin 5 mg q 8 hrs prn for bladder spasms, and estrace cream 4 gms on mon and mon nights, for AV and UTI prophylaxi s. Lymphedema 759093589 I89 .0 ChronicCon tinue furosemide as above and elevation. Monitor Anemia 415034962 D64.89 Hgb stable since 10/2023.Ir on was nl, ferritin nl, but on the low end.Consid er adding iron.Monit or labs. Type 2 sirena betes mellitus with peripheral angiopathy 108056667 E11.51 On no meds for DM.Last HgA1C was 5.4 in on tinue to tx for neuropathy as above.Shelly tor fingerstic ks prn and HgA1C q 6 months, will order for next wk. Chronic pain 84650446 G8 9.29 Pain at baseline.C ontinue APAP 1000 mg TID, topiramate 100 mg qhs, celecoxib 100 mg BID, gabapentin 200 mg BID and 400 mg qhs, and baclofen 10 mg TIDDuloxet ine is no longer on med list, unclear why this was stopped, it looks like it was d/c'd on 02/21/24.Res tart PT/OT prnMonitor pain. Mixed anxi ety and depressive disorder [id number] F41.8 Mood stable, but with behaviors. Continue buspirone 5 mg BID and 10 mg qhs, zolpidem 10 mg qhs, and topiramate 100 mg qhsAs noted above, no longer on duloxetine .Monitor mood and behaviors. Followed by psych, await their input about whether to restart duloxetine . Essential hypertension 85132762 I10 With occ borderline SBPContinu e furosemide 20 mg qdMonitor BP and labs Gastroesop hageal reflux disease without esophagitis 107148091 K21.9 With reflux during the night, despite trying to eat very little in the evening.Wi ll start metoclopra mide 10 mg qhs and continue omeprazole 20 mg qdMonitor GI sxs. Pain of right hand 80861 63336 98730 M79.641 Willing to try diclofenac gel.Will start 1%, 2 gms to right hand TID.Contin ue wrist/hand splintMoni tor sxs. Vitamin D deficiency 347 05657 E56.8 Last vitamin D still sl. low in 02/2024.Con tinue ergocalcif archie 50,000 IU monthly.Wi ll recheck vitamin D next wk. Dyslipidemia 011153530 E 78.49 In good control as of 02/2024.Con tinue atorvastat in 20 mg qdMonitor labs yearly. [id number] EUGENIO BEAVERS, WENDI [address] [address] 06/18/2024 08:47:05 06/19/2024 15:20:52 Gastroesophageal reflux disease without esophagitis 460465660 K21.9 Continues with reflux sx. despite adding reglan 10 mg q HS. Plan -Encourage HOB >30 degrees at all times.Enco urage smaller more frequent meals.Enco urage refrigerat ion of food set aside at meals.Cont inue HS reglan, consider adding 5 mg tid with meals.Incr ease omeprazole to 40 mg bid x 4 wks, then reduce to 40 mg qd, continue to reduce as able.Add zofran 4 mg po q 8 hrs. prn N/VReferra l to GI discussed for further eval and tx.Monitor GI sxs. Chronic pain 21356291 G8 9.29 Tapered off dilaudid in preparatio n for d/c home, but did not go home. 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 monitor mood, behaviorsp sych eval prn, input celine loo [id number] EUGENIO BEAVERS NP [address] [place] [address] [place] [address] 07/25/2024 08:41:59 07/29/2024 16:07:15 Gastroesophageal reflux disease without esophagitis 948603591 K21.9 Continue:H OB >30 degrees at all times.Smal ler more frequent meals.Enco urage refrigerat ion of food set aside at meals.Regl an 10 mg q HSOmeprazo le to 40 mg qd, continue to reduce as able.Zofra n 4 mg po q 8 hrs. prn N/VReferra l to GI if sx. remain problemati cMonitor sxs. Chronic pain 95250221 G8 9.29 Tapered off dilaudid in preparatio n for d/c home, but did not go home. Will not restart as pain stable.Con tinue:APAP 1000 mg tidAPAP 500 mg prn (not within 4 hours of scheduled dose)topir amate 100 mg at hscelecoxi b 100 mg bidgabapen tin 200 mg bid and 400 mg at hsbaclofen 10 mg tidduloxet ine 30 mg qdPT/OT prn BERNAL completed 02/29/24: Moderate fall risk Mixed anxi ety and depressive disorder 884175499 F41.8 with history of personalit y disorder:b uspirone 5 mg bid and 10 mg at hszolpidem 10 mg at hstopirama te 100 mg at hsduloxeti ne 30 mg qdgabapent in 200 mg bid, and 400 mg q HSmonitor mood, behaviorsp sych eval prn, input appreciate d. Asthma 956725505 J45.40 No resp c/o today.Cont inue Breo Ellipta 25/100 mcg qd, albuterol MDI 2 puffs q 4 hrs prn and albuterol nebs q 4 hrs prnMonitor resp status Essential hypertension 71844215 I10 With occ borderline SBPContinu e furosemide 20 mg qdMonitor BP and labs Type 2 sirena betes mellitus with peripheral angiopathy 997284669 E11.51 On no meds for DM.Last HgA1C 5.7Continu e to tx for neuropathy as above.Shelly tor fingerstic ks prn and HgA1C q 6 months Urinary incontinence 165 089319 N39.46 Continue oxybutynin 5 mg q 8 hrs prn for bladder spasms, and estrace cream 4 gms on wed and mon nights, for AV and UTI prophylaxi s. Lymphedema 966302418 I89 .0 ChronicCon tinue furosemide as above and elevation. Monitor Anemia 508922394 D64.89 Hgb stable since 10/2023.Ir on was nl, ferritin nl, but on the low end.Consid er adding iron.Monit or labs. Vitamin D deficiency 347 54593 E56.8 Vitamin D 34.Continu e ergocalcif archie 50,000 IU monthly.Ch kuldeep level prn Dyslipidemia 661099317 E 78.49 Lipid panel, LFTs WNR.Contin ue atorvastat in 20 mg qdMonitor labs yearly. 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 for concern of cellulitis L lower leg wound, start with keflex 500 mg qid x 7 d plus probiotic. Monitor [id number] Griffin Fu MD [address] [address] [place] [address] 08/05/2024 11:45:28 08/06/2024 16:27:36 Chronic ulcer of lower extremity 85858604 L97.222 coordinate with wound care followingd oes not appear infection currentlyc ontinue triad pastemonit or siteelevat e legs late am to assist in decreasing edema [id number] EUGENIO BEAVERS NP [address] [place] [address] [place] [address] 09/12/2024 09:08:49 09/17/2024 14:25:10 Gastroesophageal reflux disease without esophagitis 925713157 K21.9 Complicate d by morbid obesity and prior gastric surgery.Wa s on PPI in past, not on MAR now, unclear as to why.Restar t prilosec 40 mg qdContinue reglan 10 mg q hsHOB >30 degrees at all times when in bed.Smalle r more frequent meals.Refe rral to GI if sx. remain problemati cMonitor sxs. Low back pain 738914157 M54.50 new onset, has had beforesusp ect muscle strain/spa smPlan -refer to rehab for eval and tx.will allow for extra baclofen use - 10 mg bid prn x 2 wks onlyT-L x ray to rule out VCFMonitor pain Chronic ul cer of lower extremity 08109048 L97.222 Off and on issues with leg wounds.Cur rent wound on posterolat eral calf area, large moist, shallow.Sl ow to heal.Follo wed by in house Wound Team.William nt tx. collagen with silver in wound bed, antifungal powder to periwound, DCD qd and prn. Discussed with pt. -Needs to elevate leg when in bed, needs compressio n with ELIN wraps, toes to knee to help with edema and drainage.C ontinue current tx., for now increase frequency of dressing changes to bid due to lrg. amts of drainage. Can also consider alginate type product to help manage drainage.D oes not appear grossly infected at this time, will hold off on antibiotic at this time but continue to monitor closely.Va scular Consult discussed, pt. will think about.Cont inue vin as per dieticianA dd MVI with minerals dailyMonit or Carpal gideon antolin syndrome 57145639 G56.02 Scheduled for surgery soon for L releaseMon itor Chronic pain syndrome 37 9055001 G89.4 Including back and kneeBack with [facility]Cont inue:APAP 1 gm tidCymbalt a 30 mg dailyBaclo fen 10 mg tidCelebre x 100 mg bidGabapen tin 200 mg bid, and 400 mg q HSPT/OT prn Essential hypertension 92838512 I10 With occ borderline SBPContinu e furosemide 20 mg qdMonitor BP and labs Dyslipidemia 089120453 E 78.49 Lipid panel, LFTs WNR.Contin ue atorvastat in 20 mg qdMonitor labs yearly. Asthma 728412917 J45.40 No resp c/o today.Cont inue zyrtec 10 mg qd, Breo Ellipta 25/100 mcg qd, albuterol MDI 2 puffs q 4 hrs prn and albuterol nebs q 4 hrs prnMonitor resp status [id number] EUGENIO BEAVERS, WENDI [address] [place] [address] 11/05/2024 10:37:56 11/06/2024 11:09:00 Gastroesophageal reflux disease without esophagitis 804428008 K21.9 Complicate d by morbid obesity and prior gastric surgery.Wa s on PPI in past, restarted prilosec 40 mg qd with improvemen t in sx.Continu e reglan 10 mg q hsHOB >30 degrees at all times when in bed.Smalle r more frequent meals.Refe rral to GI if sx. remain problemati cMonitor sxs. Chronic ul cer of lower extremity 79552979 L97.222 Off and on issues with leg wounds.Cur rent wound on posterolat eral calf area, large moist, shallow.Sl ow to heal.Follo wed by in house Wound Team.Seen by Dr. Butler 10/29 - clinically c/w pyoderma gangrenosu m - started doxy 100 mg bid x 30 days and topical clobetasol 0.05% bid until follow up 12/05/24.Co ntinue MVI with mineralsVa scular Consult discussed, pt. will think about.Cont inue vin as per dieticianM onitor Carpal gideon antolin syndrome 76794928 G56.02 S/P L release, aamir. wellMonito r Chronic pain syndrome 37 7304986 G89.4 Including back and kneeBack with [facility] CenterCont inue:APAP 1 gm tidCymbalt a 30 mg dailyBaclo fen 10 mg tidCelebre x 100 mg bidGabapen tin 200 mg bid, and 400 mg q HSPT/OT prn Essential hypertension 69361871 I10 With occ borderline SBPContinu e furosemide 20 mg qdMonitor BP and labs Dyslipidemia 631855464 E 78.49 Lipid panel, LFTs WNR.Contin ue atorvastat in 20 mg qdMonitor labs yearly. Asthma 851292509 J45.40 No resp c/o today.Cont inue zyrtec 10 mg qd, Breo Ellipta 25/100 mcg qd, albuterol MDI 2 puffs q 4 hrs prn and albuterol nebs q 4 hrs prnMonitor resp status Morbid obesity 219282097 E66.01 s/p lap bandfollow ed with [facility] - on restrictiv e diet now, losing weightDiet ican also followingM onitor [id number] EUGENIO BEAVERS NP [address] [place] [address] [place] [address] 12/18/2024 10:17:28 12/24/2024 10:44:32 Gastroesophageal reflux disease without esophagitis 759858486 K21.9 Complicate d by morbid obesity and prior gastric surgery.Wa s on PPI in past, restarted prilosec 40 mg qd with improvemen t in sx.Continu e reglan 10 mg q hsHOB >30 degrees at all times when in bed.Smalle r more frequent meals.Refe rral to GI if sx. remain problemati cMonitor sxs. Chronic ul cer of lower extremity 14309310 L97.222 Off and on issues with leg wounds.Cur rent wound on posterolat eral calf area, large moist, shallow.Sl ow to heal.Follo wed by in house Wound Team.Seen by Dr. Butler 10/29 - clinically c/w pyoderma gangrenosu m - started doxy 100 mg bid x 30 days and topical clobetasol 0.05% bid until follow up. *Pt. needs to schedule follow up, 12/05 appt. missed due to transporta tion issues*Con tinue MVI with mineralsVa scular Consult discussed, pt. will think about.Shelly tor as outpt. Carpal gideon antolin syndrome 86918975 G56.02 S/P L release, aamir. wellMonito rUsing lidoderm patch to L wrist for painFollow up with [facility] get R side addressed as well. Chronic pain syndrome 37 3745498 G89.4 Including back and kneeBack with [facility] - continue as outpt.Cont inue:APAP 1 gm tidCymbalt a 30 mg dailyBaclo fen 10 mg tidCelebre x 100 mg bidGabapen tin 200 mg bid, and 400 mg q HSPT/OT prn as outpt. Essential hypertension 19053935 I10 With occ borderline SBPContinu e furosemide 20 mg qdMonitor BP and labs as outpt. Dyslipidemia 452364124 E 78.49 Lipid panel, LFTs within good rangeConti nue atorvastat in 20 mg qd Asthma 247869739 J45.40 Continue zyrtec 10 mg qd, Breo Ellipta 25/100 mcg qd, albuterol MDI 2 puffs q 4 hrs prnMonitor resp status as outpt. Morbid obesity 086134672 E66.01 s/p lap bandfollow ed with bariatric surgeonBac k with [facility] - on restrictiv e diet now (Boost Glucose Control Max 8 oz. tid)losing weight, follow up as sched.Shelly tor Anemia 955186528 D64.89 Hgb stable since 10/2023.Mo nitor labs as outpt. Recurrent urinary tract infection 643814073 N30.20 Dr. Mcgowan involved, but hasn't been in for a follow up in quite a while.Main tain fluids, monitor VSContinue oxybutinin , estrace cream Type 2 sirena betes mellitus with peripheral angiopathy 876196963 E11.51 On no meds for DM.Last HgA1C 5.4Pt. denies she is diabetic and asked for this dx. to be removed from her health hx.Unsure how long she has been carrying this dxContinue to tx for neuropathy as above.Shelly tor as outpt. Vitamin D deficiency 347 41750 E56.8 Vitamin D level 50.1Contin ue ergocalcif archie 50,000 IU monthly. Depressive disorder 3548 9007 F32.A Continue Cymbalta 30 mg dailyDenie s SI/HI/AH/V HMonitor mood, behaviors as outpt. Chronic anxiety 27626226 9 F41.9 with insomniaCo ntinu:Cymb ritesh 30 mg dailyBuspa r 5 mg bid, and 10 mg q HSMelatoni n 6 mg q HSAmbien 10 mg q HSPsych followingM onitor mood, behaviors as outpt. Pyoderma gangrenosum 745 13419 L88 see above Health Concerns Section Related Observation LastModified by Organization Detai ls LastModified Time None Recorded Concern Status LastModified by Organization Details LastModified Time None Recorded Advance Directives Directive Y: Full code; all interventi ons Payers Insurance Date Sequence Insurance Name Policy Number Policy Price Covered Member ID Price Member ID Guarantor Name 12/18/2024 1 [place]: [employer] Rahel Fish [id number] Rahel Fish 12/20/2022 1 *SELF PAY* Talat Fish 12/24/2024 2 [place] [facility] Rahel Fish [id number] Rahel Fish Notes Date Note Type Note Provider Name and Address Organization Details Recorded Time 07/25/2024 text/html Rahel is a 54 yo LT resident, seen today for a routine visit. Since her last routine visit, she was seen due to increased complaints of gastric reflux, causing some nausea,the urge to vomit, and throat irritation. Lifestyle modifications discussed and PPI increased to bid x 4 wks, then reduced back to daily. Sx. currently improved. Chronic skin ulceration BLEs - off and on - followed by Wound MD as well. Currently with 3 areas of ulceration to posterior legs. Right upper thigh ulceration open, approx. 1 cm round, moist, granular wound bed. Left upper thigh ulceration healed but fragile, area pink, dry. Left lower leg ulceration approx. 1 cm. round with moist yellow wound bed and periwound bright pink, warm, inflammed, and tender. Left wrist and hand pain - referred to [facility], to have surgery for carpel tunnel soon. 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 Her PMH includes HTN, asthma, anemia, antisocial personality d/o, depression, anxiety, chronic pain, HLD, GERD, lymphedema, morbid obesity, OA, UTIs, s/p covid, DM2, UI, atrophic vaginitis, janice-menopause, and Vit D def. EUGENIO BEAVERS NP [address], [address], [place], [address], [facility] [employer] 07/25/2024 11:39:12 08/05/2024 text/html Patient is a 54 yo female resident seen for acute rounding at request of nursing. Patient with chronic ulceration LLE followed by wound care. Patient recently finished course of keflex for cellulitis to site. Currently sitting up in wheelchair in [facility] Griffin Fu MD [address], [address], [place], [address], [facility] [employer] 08/05/2024 11:50:10 09/12/2024 text/html Rahel is seen today for an acute and routine visit.Multiple issues to address today: Acute back pain x days - waistline area mid spine radiating to right side. No injury or trauma to cause pain, it just happened . Waxes and wanes, interfering with ADLs. Non healing left leg wound - followed by wound team, not healing. ? need for abx. Current tx. collagen with silver to wound bed, fungal powder to periphery, super absorbent dressing daily. Compression recommended, but non compliant with this due to inconsistent wrapping by staff - too tight, too uncomfortable. Uncontrolled GERD sx. - MAR reviewed, not on any GI meds other than HS reglan at this time. Was on PPI at one time, last note in Jul. indicates 40 mg qd, but no longer on MAR for unclear reasons. Upon exam, Rahel is up in her w/c, alert, animated, NAD. Back pain as described above, interfering with ADLs. She is concerned her leg wound is not healing, it hurts at times, like a stinging sensation. It does drain quite a lot of fluid at times. She dislikes leg compression, and is unable to elevate her leg in bed as she is not able to lay comfortably on her back. She has a Derm appt. in to evaluate the wound, and is considering a second opinion at the [facility] wound clinic. A Vascular consult was also discussed, she will think about this. Her PMH includes HTN, asthma, anemia, antisocial personality d/o, depression, anxiety, chronic pain, HLD, GERD, lymphedema, morbid obesity, OA, UTIs, s/p covid, DM2, UI, atrophic vaginitis, janice-menopause, and Vit D def. EUGENIO BEAVERS NP [address], [facility] [address], [place], [address], [facility] [employer] 09/12/2024 12:49:19 11/05/2024 text/html Rahel is seen today for a routine visit. Since her last routine visit:Her acute back pain has resolved.She was seen by Derm (Dr. Butler) 10/29 for leg ulcerations - felt clinically c/w pyoderma gangrenosum. Started topical clobetasol 0.05% as well as doxycycline 100 mg bid x 1 month with follow up 12/05/23.GERD sx. - much better now that prilosec 40 mg qd.She has started a very restrictive diet under the care of the [facility], and has started losing weight. 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 Upon exam, Rahel is up in her w/c, alert, in good spirits, NAD. She feels good today, and has no complaints.No concerns per nsg.VSS. Her PMH includes HTN, asthma, anemia, antisocial personality d/o, depression, anxiety, chronic pain, HLD, GERD, lymphedema, morbid obesity, OA, UTIs, s/p covid, DM2, UI, atrophic vaginitis, janice-menopause, and Vit D def. EUGENIO BEAVERS NP [address], [address], [place], [place], [address], [facility] [employer] 11/05/2024 10:54:26 12/18/2024 text/html Rahel is seen today for an acute visit. She will be discharging back into the community 12/20/24. She is a 54 yo LTC resident at [facility]. She transferred to our service 12/19/2022. Since her transition of care, she has been seen quite frequently to manage old as well as acute problems.12/2022 - Vit D was added due to low D level.01/2023 - prn oxybutinin added to help with bladder pain/spasms.03/2023 - bladder followup - referred again for pelvic MRI with Urology follow up with Dr. Mcgowan.04/2023 - L posterior thigh ulceration - MRSA positive - seen by Wound MD and resolved with abx. tx. and local care.05/2023 - Vaginal dryness - estrace cream added06/2023 - covid positive, px. with Paxlovid, sx. resolved, no sequelae.07/2023 - reflare of L posterior thigh wound - resolved with local mgmt. and hibiclens and bactroban.08/2023 - asthma flare, albuterol nebs added10/2023 - HLD noted on labs - started statin. Labs also noted anemia, Fe profile WNR, no s/s active bleeding.11/2023 - breo added for asthma mgmt.12/2023 - started with left finger pain, now with hand and wrist pain. She was to return to the community last January, but this did not happen. Her pain meds had been adjusted/reduced in anticipation of this.She was referred to [facility] re: hand pain (now bilateral) and diagnosed with carpel tunnel. She underwent L release 09/19/24. aamir. well. She is also back with [facility] to help manage chronic pain. She intends to follow up with [facility] for R carpel tunnel release.In May, she was having issues with GERD sx, HS reglan and PPI tx. added with improvement in sx.Her leg wounds have remained a concern, requiring frequent attention. Referred to Derm, Dr. Butler, given dx. of pyoderma gangrenosum in October. Started doxycycline and clobetasol cream. Was to follow up 12/05/24, but did not go due to transportation issues. Rahel is to reschedule this appointment. Current treatment for now is clobetasol and zetuvit dressing change bid.She has also reconnected with [facility], and is now on a very low calorie diet, Boost Glucose Control Protein Max 8 oz. tid. Most recent weight 404 lbs. [employer] 12/04/24 stable. Upon exam, Rahel is up in her w/c, alert, in good spirits, NAD. She feels good today, and has no complaints. Anxious and happy about moving into a new place.No concerns per nsg. Her PMH includes HTN, asthma, anemia, antisocial personality d/o, depression, anxiety, chronic pain, HLD, GERD, lymphedema, morbid obesity, OA, UTIs, s/p covid, DM2, UI, atrophic vaginitis, janice-menopause, and Vit D def. EUGENIO BEAVERS NP [address], [address], [place], [address], [facility] [employer] 12/24/2024 10:24:54 OBGyn Episode No OBEpisode recorded.
== END 2025-09-18 11:08 | disposition home or self-care (01) ==
LOC: HO.HUSH 10:15
PROVIDERS: PCP Family Medicine; Visit Provider Nurse Practitioner Family
DX: R39.15 Urgency of urination (principal); N39.3 Stress incontinence (female) (male); Z13.9 Encounter for screening, unspecified
CPT/HCPCS: 99213; G2211